=== PATIENT | male | born 1965 | race Caucasian/White ===

== ENCOUNTER → 2024-08-13 | Outpatient (CLI) | payer OTHER, SELFPAY ==
--- NOTE | 2024-08-13 09:39 | STE_ITS ---
Reason For Study Reason For Study: MVP, PALPS Stress Results Protocol: Volodymyr Protocol Maximum Predicted HR: 159 bpm Target HR: 135 bpm % Maximum Predicted HR: 97 % DurationHeart Rate Stage (mm:ss) (bpm) BP Comment BASELINE 82 130/82 STAGE 1 3:00 103 142/82 STAGE 2 3:00 127 142/82 STAGE 3 3:00 148 152/70 STAGE 4 3:00 155 158/76 RECOVERY 118 118/72NO CHEST PAIN DURING TEST Stress Duration: 12:00 mm:ss Maximum Stress HR: 155 bpm Baseline Echocardiogram Findings Stress Echo Wall motion Data Resting WM Intermediate WM Stress WM ECHO/Stress Test Echo w/o Contrast Interpretation Summary Exercise stress echo. 59-year-old man with a history of mitral valve disease. . Resting EKG demonstrates sinus rhythm with a rate of 82 bpm normal intervals are noted. The patient exercised according to the regular Volodymyr protocol for total duration of 12 minutes comple ting stage IV of the Volodymyr protocol. The maximum heart rate attained was 173 bpm which was 108% of max impacted heart ra te the maximum workload was 13.7 metabolic equivalents. The patient maintained sinus rhythm throughout the recor ding. At rest there were no ST or T wave changes noted to suggest ischemia and at peak exercise upsloping ST changes wer e noted we did not meet the criteria for ischemia. No clinical angina was noted the test was terminated due to target he art rate being achieved. The peak blood pressure is 158/76 which was a normal blood pressure response to exercise with a rate-pressure product of 27,300. No clinical angina or arrhythmias were noted. Stress echocardiogram. The resting echocardiogram demonstrated preserved ejection fraction of 60% with no wall motion abnormalities noted. There was mild mitral valve prolapse of the posterior leaflet, mitral calcifica tion was also present. At peak exercise there was thickening of all griffith reduction of low ventricular cavity size and peaking of ejection fraction of 70%. No wall motion abnormalities were present. Conclusion: Exercise stress echocardiogram with no ischemic changes at a high workload. Resting mitral valve prolapse mild. Ordering Physician: Julian Vera Referring Physician: Julian Vera Performed By: Ysabel Vazquez, MOHSEN, RVT
--- OUTSIDE RECORDS SUMMARY | 2024-08-13 15:21 | XMS RPT_ITS | CCD ---
Author Organization [facility] Care Team Providers Care Recruiter Account Manager Name Role Phone Erma Knight Primary Care Provider [phone] Erma Knight MD Primary Care Provider Erma Knight MD Primary Care Provider ERMA KNIGHT Primary Care Unavailable OLIVER WATSON Referring Unavailable OLIVER WATSON Attending Unavailable MARIA D ROME Attending Unavail able MOISÉS, ANINDYA SANCHEZ Primary Care Unavailable MARIA D ROME Attending Unavail able MARIA D ROME Referring Unavail able MOISÉS ANDAGOBERTOYA VENECIA Primary Care Unavailable Erma Knight MD Primary Care Provider GABE HAMILTON Referring Unavailabl e SEN, ANINDYA Primary Care Unavailable WESTERHEIDE, MARTY Admitting Unavailable WESTERGA MARTY Attending Unavailable SEN, ANINDYA Primary Care Unavailable Erma Knight MD Primary Care Provider ERMA KNIGHT Referring Unavailable SEN, ANINDYA SANCHEZ Primary Care Unavailable OLIVER WATSON Attending Unavailable OLIVER WATSON CHERYL Referring Unavailable OLIVER WATSON Attending Unavailable MOISÉS, ANINDYA SANCHEZ Primary Care Unavailable Unavailable Primary Care Provider Unavailabl e SEN, ANINDYA Attending Unavailable SEN, ANINDYA Attending Unavailable SEN, ANINDYA Attending Unavailable SEN, ANINDYA Attending Unavailable SEN, ANINDYA Attending Unavailable SEN, ANINDYA Attending Unavailable SEN, ANINDYA Attending Unavailable SEN, ANINDYA Referring Unavailable SEN, ANINDYA Attending Unavailable SEN, ANINDYA Attending Unavailable Julian Vera Attending Unavailable [facility] Doctor, Out of Primary Care Unavailable [facility] Doctor, Out of Referring Unavailable Julian Vera Referring Unavailable [facility] Doctor, Out of Primary Care Unavailable Julian Vera Attending Unavailable Allergies Allergy Classification Reported Allergen(s) Allergy Type Date of Onset Reaction(s) Facility (1 source) Amitriptyline; Translations: [AMITRIPTYLINE] Drug Allergy 03-16-2023 [facility] Repository (1 source) busPIRone; Translations: [BUSPIRONE] Drug Allergy 03-16-2023 [facility] Repository (1 source) DULoxetine; Translations: [DULOXETINE HCL] Drug Allergy 03-16-2023 [facility] Repository (1 source) Eszopiclone; Translations: [ESZOPICLONE] Drug Allergy 03-16-2023 [facility] Repository (1 source) rOPINIRole; Translations: [ROPINIROLE] Drug Allergy 03-16-2023 [facility] Repository (1 source) Temazepam; Translations: [TEMAZEPAM] Drug Allergy 03-16-2023 [facility] Repository (1 source) traZODone; Translations: [TRAZODONE] Drug Allergy 03-16-2023 [facility] Repository (1 source) zolpidem; Translations: [ZOLPIDEM] Drug Allergy 03-16-2023 [facility] Repository (1 source) cat dander Drug allergy (disorder) 06-18-2024 [facility] Repository Medications Current Medications Medication Drug Class(es) Dates Sig (Normalized) Sig (Original) acetaminophen 325 mg / HYDROcodone bitartrate 5 mg oral tablet (14 sources) Opioid Agonist Start: 10-08-2023 take 1-2 tablets by mouth once daily in the evening HYDROcodone-aceta minophen (NORCO) 5-325 mg per tablet Take 1-2 tablets by mouth every evening 60 tablet 12/08/2023 3:10 PM EDT 11/27/2023 Active Start: 04-24-2020 End: 04-27-2020 take 1 tablet by mouth every six hours as needed for pain HYDROcodone-acetaminophen (NORCO) 5-325 mg per tablet Indications: Acute pain of left shoulder Take 1 (one) tablet by mouth every 6 (six) hours as needed for pain . 10 tablet 0 04/24/2020 04/27/2020 Active acetaminophen 325 mg / oxyCODONE hydrochloride 5 mg oral tablet (1 source) Opioid Agonist Start: 09-03-2019 End: 09-06-2019 take 1 tablet by mouth every six hours as needed for pain, then take 3 tablets by mouth as needed for pain oxyCODONE-acetaminophen (PERCOCET) 5-325 mg per tablet Indications: Acute diverticulitis Take 1 (one) tablet by mouth every 6 (six) hours as needed for pain (Days supply per fill: 3) . 12 tablet 0 09/03/2019 09/06/2019 Active amoxicillin 875 mg / clavulanate 125 mg oral tablet (1 source) Penicillin-class Antibacterial Start: 04-28-2024 End: 05-03-2024 take 1 tablet by mouth twice daily amoxicillin-clavulanate potassium (AUGMENTIN) 875-125 mg per tablet Take 1 tablet by mouth two times a day for 5 days. 10 tablet 04/28/2024 05/03/2024 Active atenolol 25 mg oral tablet (7 sources) beta-Adrenergic Khai Start: 07-12-2021 take 1 tablet by mouth once daily atenolol (TENORMIN) 25 mg tablet Take 1 tablet by mouth once daily 30 tablet 03/02/2024 11:51 AM EST 03/31/2023 Active celecoxib 200 mg oral capsule (11 sources) Nonsteroidal Anti-inflammatory Drug Start: 12-03-2023 take 1 capsule by mouth once daily in the morning celecoxib (CELEBREX) 200 mg capsule Take 1 capsule by mouth 1 time each day. 30 capsule 4 02/28/2024 8:53 AM EST 12/03/2023 Active Start: 11-28-2023 take 1 capsule by mo [facility] once daily celecoxib (CELEBREX) 200 mg capsule Take 1 capsule by mouth 1 time each day. 30 capsule 11/28/2023 Active End: 01-31-2021 take 1 capsule by mouth once daily celecoxib (CeleBREX) 200 MG capsule Take 200 mg by mouth daily . 0 01/31/2021 Discontinued ciprofloxacin 500 mg oral tablet (3 sources) Quinolone Antimicrobial Start: 09-03-2019 End: 09-09-2019 take 1 tablet by mouth twice daily ciprofloxacin HCl (CIPRO) 500 MG tablet Take 1 (one) tablet (500 mg total) by mouth 2 (two) times a day for 6 days . 12 tablet 0 09/03/2019 09/09/2019 Active Start: 08-30-2019 End: 09-03-2019 take 400 mg intravenous route every twelve hours ciprofloxacin (CIPRO) IVPB 400 mg (premix) clonazePAM 1 mg oral tablet (3 sources) Benzodiazepine Start: 11-27-2023 take 0.5-1 tablets by mouth at bedtime clonazePAM (KLONOPIN) 1 mg tablet Take 1/2 to 1 tablet by mouth at bedtime 30 tablet 12/08/2023 3:10 PM EDT 11/27/2023 Active diphenhydrAMINE (1 source) Histamine-1 Receptor Antagonist Start: 08-30-2019 take 25 mg intravenous route every six hours as needed diphenhydrAMINE (BENADRYL) injection 25 mg ipratropium bromide 0.021 mg/actuat metered dose nasal spray (1 source) Anticholinergic Start: 04-28-2024 Ipratropium [place] (ATROVENT) 21 mcg (0.03 %) nasal spray Use 2 Sprays in the nose every 12 hours. 30 mL 04/28/2024 Active metroNIDAZOLE 500 mg oral tablet (3 sources) Nitroimidazole Antimicrobial Start: 09-03-2019 End: 09-09-2019 take 1 tablet by mouth three times daily at mealtime metroNIDAZOLE (FLAGYL) 500 MG tablet Take 1 (one) tablet (500 mg total) by mouth 3 (three) times a day with meals for 6 days . 18 tablet 0 09/03/2019 09/09/2019 Active Start: 08-30-2019 End: 09-03-2019 take 500 mg intravenous route every eight hours metroNIDAZOLE (FLAGYL) IVPB 500 mg multivitamin tablet (2 sources) take 1 tablet by mouth once daily multivitamin tablet Take 1 tablet by mouth 1 (one) time each day. 0 Active ondansetron 4 mg disintegrating oral tablet (3 sources) Serotonin-3 Receptor Antagonist Start: 09-03-19 20 End: 09-10-19 20 take 1 tablet by mouth every eight hours as needed ondansetron (Zofran ODT) 4 MG disintegrating tablet Dissolve 1 (one) tablet (4 mg total) on top of tongue every 8 (eight) hours as needed for nausea . 20 tablet 0 09/03/2019 09/10/2019 Active Start: 08-30-2019 End: 09-03-2019 take 4 mg intravenous route every four hours as needed ondansetron (ZOFRAN) injection 4 mg pramipexole dihydrochloride 0.75 mg oral tablet (20 sources) Nonergot Dopamine Agonist Start: 04-23-2023 take 1 tablet by mouth once daily Pramipexole 0.75 mg tablet Take 1 tablet by mouth once daily. 90 tablet 3 01/19/2024 11:06 AM EST 04/23/2023 Active Start: 08-30-2019 End: 09-03-2019 take 0.75 mg by mouth once daily 0.75 mg, Oral, Nightl y, First dose on 08/30/19 at 2230 tadalafil 20 mg oral tablet (9 sources) Phosphodiesterase 5 Inhibitor Start: 03-31-2023 take 1 tablet by mouth once daily as needed Tadalafil (CIALIS) 20 mg tablet Take 1 tablet by mouth once daily as needed for erectile dysfunction 30 tablet 3 10/02/2023 1:04 PM EDT 03/31/2023 Active Start: 01-05-2021 tadalafiL (JOSEFA LIS) 20 MG tablet TAKE 1 TABLET BY MOUTH 30 MINUTES PRIOR TO INTERCOURSE FOR 30 DAYS 01/05/2021 Active Completed/Discontinued Medications Medication Drug Class(es) Dates Sig (Normalized) Sig (Original) calcium chloride 0.0014 meq/ml / potassium chloride 0.004 meq/ml / sodium chloride 0.103 meq/ml / sodium lactate 0.028 meq/ml injectable solution (1 source) Start: 02-08-2021 End: 02-08-2021 lactated Ringer's infusion 1 ml ketorolac tromethamine 30 mg/ml injection (1 source) Nonsteroidal Anti-inflammatory Drug, Cyclooxygenase Inhibitor Start: 08-31-2019 End: 09-03-2019 take 15 mg intravenous route every six hours as needed ketorolac (TORADOL) injection 15 mg melatonin 3 mg oral tablet (2 sources) Start: 08-30-2019 End: 09-03-2019 melatonin tablet 3 mg naloxone (NARCAN) injection 0.1 mg (2 sources) Start: 08-30-2019 End: 09-03-2019 naloxone (NARCAN) injection 0.1 mg Start: 08-30-2019 naloxone (NARC AN) injection 0.1 mg oxyCODONE hydrochloride 20 mg/ml oral solution (3 sources) Opioid Agonist Start: 08-30-2019 End: 09-03-2019 take 5 mg under the tongue every four hours as needed oxyCODONE (ROXICODONE) 10 mg/0.5 mL concentrated solution 5 mg 1000 ml sodium chloride 9 mg/ml injection (4 sources) Start: 09-01-2019 End: 09-02-2019 sodium chloride 0.9% (NS) bolus 1,000 mL Start: 08-30-2019 End: 09-03-2019 sodium chloride 0.9% (NS) 24 hr venlafaxine 75 mg extended release oral capsule (9 sources) Serotonin and Norepinephrine Reuptake Inhibitor Start: 08-31-2019 End: 01-31-2021 take 75 mg by mouth once daily 75 mg, Oral, Daily, First dose on Fri08/31/19 at 0900 DO NOT CRUSH OR CHEW. Problems Problem Classification Problem Date Documented Da te Episodic/Chronic Abdominal pain (1 source) Left lower quadrant pain; Translations: [Left lower quadrant abdominal pain] Episodic Cardiac dysrhythmias (2 sources) Atrial premature depolarization; Translations: [Atrial premature depolarization] Onset: 03-16-2023 Chronic Cardiac dysrhythmias (10 sources) Palpitations; Translations: [Palpitations] Onset: 03-25-2023 03-25-2023 Episodic Disorders of lipid metabolism (11 sources) Hyperlipidemia; Translations: [Hyperlipidemia, unspecified] Onset: 01-31-2021 Chronic Diverticulosis and diverticulitis (7 sources) Diverticulitis of intestine; Translations: [Diverticulitis of intestine, part unspecified, without perforation or abscess without bleeding] Onset: 08-30-2019 08-31-2019 Chronic Diverticulosis and diverticulitis (8 sources) Diverticulitis of intestine; Translations: [Acute diverticulitis] Onset: 08-30-2019 08-30-2019 External cause codes: Fall (2 sources) Fall; Translations: [Fall, initial encounter] Heart valve disorders (8 sources) Mitral valve regurgitation; Translations: [Nonrheumatic mitral (valve) insufficiency] Onset: 03-25-2023 Chronic Immunizations and screening for infectious disease (2 sources) Encounter for immunization; Translations: [Encounter for immunization] Onset: 04-01-2024 Episodic Nonspecific chest pain (4 sources) Chest discomfort; Translations: [Other chest pain] Onset: 03-25-2023 02-03-2023 Episodic Osteoarthritis (2 sources) Unspecified osteoarthritis, unspecified site; Translations: [Unspecified osteoarthritis, unspecified site] Onset: 03-30-2024 Chronic Other gastrointestinal disorders (1 source) Personal history of other diseases of the digestive system; Translations: [History of diverticulitis] Episodic Other hereditary and degenerative nervous system conditions (2 sources) Restless legs syndrome; Translations: [Restless legs syndrome] Onset: 03-16-2023 Chronic Other male genital disorders (2 sources) Male erectile dysfunction, unspecified; Translations: [Male erectile dysfunction, unspecified] Onset: 03-16-2023 Chronic Other non-traumatic joint disorders (3 sources) Shoulder pain; Translations: [Acute pain of left shoulder] Episodic Other screening for suspected conditions (not mental disorders or infectious disease) (2 sources) Encounter for screening for diabetes mellitus; Translations: [Encounter for screening for diabetes mellitus] Onset: 03-18-2024 Episodic Other upper respiratory infections (1 source) Acute sinusitis; Translations: [Other acute sinusitis] 04-28-2024 Episodic Pulmonary heart disease (1 source) Pulmonary hypertension; Translations: [Pulmonary hypertension, unspecified] Chronic Residual codes; unclassified (9 sources) Sleep apnea; Translations: [Sleep apnea, unspecified] Onset: 01-31-2021 Chronic Residual codes; unclassified (2 sources) Sleep apnea, unspecified; Translations: [Sleep apnea, unspecified] Onset: 01-31-2021 Chronic Residual codes; unclassified (2 sources) Obstructive sleep apnea (adult) (pediatric); Translations: [Obstructive sleep apnea (adult) (pediatric)] Onset: 03-16-2023 Chronic Unclassified (2 sources) Billing Onset: 04-01-2024 Results Test Name Value Interpretation Reference Range Facility 12 Lead EKG performed by [facility] on 06-18-2024 12 Lead EKG performed by [place] [id number] [place] [address] 12 Lead EKG performed by [facility] 06/18/24 0812 MR#: [id number] Acct: [id number] Name: JOS ALEX Rep #: [id number] : 1965 59 From: Julian Vera MD Attending Dr: Dr. Julian Vera MD Status: DE P AMB Ordering Dr: Julian Vera MD Date: 06/18/24 Location: [facility] Sex: M C Admitted: BMS/12 Lead EKG performed by [facility] ECG Report Interpretation --Sinus Rhythm WITHIN NORMAL LIMITSElectronically signed on 06/18/2024 at 14:[address] Julian Vera [employer] Version 8610 06/18/248 Date Julian Vera MD CC: Date Dictated: 06/18/24811 Date Transcribed: 06/18/24811 Structural Iron Erector: Signed Normal [facility] Cardiology Visit Reporton Cardiology Visit Report [facility] [address] [place] [address] OFFICE VISIT Date of Service: 06/18/24 MR#: [id number] Acct: [id number] Name: JOS ALEX Rep #: [id number] : 1965 Provider: Dr. Julian lubin MD Age/Sex: 59/M Location: [facility] Status: Signed with Addenda ADDENDUM by Dr. Julian Vera MD on 06/18/24 at 1401 HPI History of Present Illness Details: ECG in the office was a normal sinus rhythm at 79 bpm and is essentially within normal limits. Assessment and Plan Assessment and Plan (1) Palpitations: Status: Acute (2) SANDRINE on CPAP: Status: Acute (3) Mitral valve disease: Status: Acute Orders: Orders 12 Lead EKG performed by [facility] Today R00.2 - Palpitations Stress Test Echo w/o Contrast Today R00.2 - Palpitations Plan Details Follow Up: 1 Year (With Dr. Vera and as needed) 06/18/24 1401 Date Julian Vera MD cc: * Signed HPI HPI History of Present Illness Details: Patient is a 59-year-old white male of Shaheed and a friend of mine from the [facility]. He comes in with Shaheed today for new patient visit. The patient carries a history of some atypical type chest discomfort hyperlipidemia and palpitations. He also had mitral regurgitation to a mild degree noted on echocardiogram in January 2021 with borderline bileaflet prolapse of the mitral valve. He also had a 7-day event monitor in March 2023 which really did not show any significant ectopy. He had less than 1% PACs and PVCs. The patient's lipids done March 2024 total cholesterol is 185, HDL 40, LDL 114 and triglycerides 155. This is on no statin therapy. The patient primary issue is what sounds to be sleep apnea that he reports he has been diagnosed as both central and obstructive. He has been followed for several years and has significant restless leg syndrome that limits his sleep pattern. He does wear a watch that monitors his sleep and has been noted to have his O2 saturation done in the 70% range even on supplemental oxygen with his CPAP. He is trialing a new mask just recently started. And he is on baclofen, clonazepam, and hydrocodone acetaminophen to try and control the restless leg syndrome. The patient is fairly active especially in the warmer months. He rides a bike and walks in the evening hours. He denies any significant dyspnea on exertion denies any syncope. There is no family history of early coronary disease he is not hypertensive he is not diabetic and he does not smoke. Intake Vital Signs 06/18/24 13:05 Height 6 ft Weight: 217 lb BMI 29.4 BP 124/88 H Blood Pressure Location Rt brachial Position Sitting Respiration 18 Pulse 91 Pulse Source Monitor Pulse Oximetry (%) 92 Oxygen Delivery Method room air Intake Visit Reasons: Sleep Apnea (PER DAO) Research & Analytics Manager Required: No Accompanied by: Is patient in pain?: No Allergies cat dander (cats) Allergy (Verified 06/18/24 13:01) Other Medications ???Medication ???Instructions ???Recorded ???Confirmed ???Type atenolol 25 mg tablet 25 mg PO QDAY 06/03/24 06/18/24 Hi story tadalafil 20 mg tablet (Cialis) 20 mg PO QDAY PRN 06/03/24 5 History baclofen 10 mg tablet 10 mg PO QHS 06/18/24 06/18/24 His tory clonazepam 1 mg tablet 1 mg PO QHS 06/18/24 06/18/24 Hist ory hydrocodone-acetaminophe n 5-325mg 1 tab PO QPM 06/18/24 06/18/24 Hi story 5mg-325mg Have you fallen in the past year?: No PFSH Medical History Diverticulitis Depression Mitral valve disease Hyperlipidemia Erectile dysfunction Palpitations Restless legs syndrome (RLS) SANDRINE on CPAP Surgical History History of foot surgery History of colonoscopy History of appendectomy Family History Mother Hypertension Ulcer Brother COPD (chronic obstructive pulmonary disease) Social History Smoking Status: Never smoker alcohol intake: current substance use type: does not use caffeine: Yes ROS Const Const: Positive for fatigue; Negative for weakness ENT ENT: Negative for dizziness or balance problems Cardio Chest Pain: Yes Palpitations: Yes Edema: Left (due to previous ankle injury) Muscle aches with walking: None Resp Respiratory: Positive for SOB with activity and SOB at rest; Negative for SOB orthopnea SOB lying down GI GI: Positive for heartburn; Negative nausea or vomiting Musc Musc: Negative for muscle weakness or balance problems Neuro Neuro: Negative for dizziness, lightheaded (more content not included)... Normal [facility] CBC WITH AUTO DIFFERENTIALon 03-18-2024 BASO # 0.0 K CUMM Normal 0.0-0.2 [facility] Comment on above: Order Comment: Locat ion: Performed By: #### L [id number] #### DIAZ MCCLAIN ([id number]) [facility] ([facility]) [address], [address] [place] [address] Basophils/100 WBC (Bld) 0.6 % Normal 0.0-3.0 [facility] Comment on above: Order Comment: Locat ion: Performed By: #### L [id number] #### DIAZ MCCLAIN ([id number]) [facility] ([facility]) [address] [place] [address] Eosinophils (Bld) [#/Vol] 0.08 10*3/uL Normal 0.00-0.40 [facility] Comment on above: Order Comment: Locat ion: Performed By: #### L [id number] #### DIAZ MCCLAIN ([id number]) [facility] ([facility]) [address] [place] [address] Eosinophils/100 WBC (Bld) 1.6 % Normal 0.0-7.0 [facility] Comment on above: Order Comment: Locat ion: Performed By: #### L [id number] #### DIAZ MCCLAIN ([id number]) [facility] ([facility]) [address] [place] [address] Erythrocyte distribution width (RBC) [Ratio] 12.2 % Normal 11.5-15.5 [facility] Comment on above: Order Comment: Locat ion: Performed By: #### L [id number] #### DIAZ MCCLAIN ([id number]) [facility] [address] [place] [address] Hematocrit (Bld) [Volume fraction] 44.7 % Normal 42.0-52.0 [facility] Comment on above: Order Comment: Locat ion: Performed By: #### L [id number] #### DIAZ MCCLAIN ([id number]) [facility] [address] [place] [address] Hemoglobin (Bld) [Mass/Vol] 14.7 g/dL Normal 13.5-18.0 [facility] Comment on above: Order Comment: Locat ion: Performed By: #### L [id number] #### DIAZ MCCLAIN ([id number]) [facility] ([facility]) [address] [address] IMMGRN# 0.0 K CUMM Normal 0.0-0.3 [facility] Comment on above: Order Comment: Locat ion: Performed By: #### L [id number] #### DIAZ MCCLAIN ([id number]) [facility] ([facility]) [address] [place] [address] IMMGRN% 0.2 % Normal 0.0-3.0 [facility] Comment on above: Order Comment: Locat ion: Performed By: #### L [id number] #### DIAZ MCCLAIN ([id number]) [facility] ([facility]) [address] [place] [address] LYMPH # 1.4 K CUMM Normal 0.7-4.5 [facility] Comment on above: Order Comment: Locat ion: Performed By: #### L [id number] #### DIAZ MCCLAIN ([id number]) [facility] ([facility]) [address] [place] [address] Lymphocytes/100 WBC (Bld) 27.3 % Normal 14.0-46.0 [facility] Comment on above: Order Comment: Locat ion: Performed By: #### L [id number] #### DIAZ MCCLAIN ([id number]) [facility] ([facility]) [address] [place] [address] MCH (RBC) [Entitic mass] 30.2 pg Normal 27.0-31.0 [facility] Comment on above: Order Comment: Locat ion: Performed By: #### L [id number] #### DIAZ MCCLAIN ([id number]) [facility] ([facility]) [address] [place] [address] MCHC (RBC) [Mass/Vol] 32.9 g/dL Normal 32.0-36.0 [facility] Comment on above: Order Comment: Locat ion: Performed By: #### L [id number] #### DIAZ MCCLAIN ([id number]) [facility] ([facility]) [address] [facility] [address] [place] [address] MCV (RBC) [Entitic vol] 92.0 fL Normal 78.0-100.0 [facility] Comment on above: Order Comment: Locat ion: Performed By: #### L [id number] #### DIAZ MCCLAIN ([id number]) [facility] ([facility]) [address] [facility] [address] [place] [address] MONO # 0.4 K CUMM Normal 0.1-1.0 [facility] Comment on above: Order Comment: Locat ion: Performed By: #### L [id number] #### DIAZ MCCLAIN ([id number]) [facility] ([facility]) [address] [place] [address] Monocytes/100 WBC (Bld) 7.9 % Normal 4.0-13.0 [facility] Comment on above: Order Comment: Locat ion: Performed By: #### L [id number] #### DIAZ MCCLAIN ([id number]) [facility] ([facility]) [address] [place] [address] KHADAR # 3.2 K CUMM Normal 1.8-7.8 [facility] Comment on above: Order Comment: Locat ion: Performed By: #### L [id number] #### DIAZ MCCLAIN ([id number]) [facility] ([facility]) [address] [place] [address] Neutrophils/100 WBC (Bld) 62.4 % Normal 40.0-74.0 [facility] Comment on above: Order Comment: Locat ion: Performed By: #### L [id number] #### DIAZ MCCLAIN ([id number]) [facility] ([facility]) [address] [address] Nucleated RBC/100 WBC (Bld) [Ratio] 0.0 % Normal 0.0-0.9 [facility] Comment on above: Order Comment: Locat ion: Performed By: #### L [id number] #### DIAZ MCCLAIN ([id number]) [facility] ([facility]) [address] [facility], [address] [place] [address] Platelet mean volume (Bld) [Entitic vol] 9.1 fL Normal 8.9-12.6 [facility] Comment on above: Order Comment: Locat ion: Performed By: #### L [id number] #### DIAZ MCCLAIN ([id number]) [facility] ([facility]) [address] [address] PLT 256 K CUMM Normal 130-400 [facility] Comment on above: Order Comment: Locat ion: Performed By: #### L [id number] #### DIAZ MCCLAIN ([id number]) [facility] ([facility]) [address] [address] RBC 4.9 M CUMM Normal 4.2-5.8 [facility] Comment on above: Order Comment: Locat ion: Performed By: #### L [id number] #### DIAZ MCCLAIN ([id number]) [facility] ([facility]) [address] [place] [address] WBC 5.2 K CUMM Normal 3.8-10.6 [facility] Comment on above: Order Comment: Locat ion: Performed By: #### L [id number] #### DIAZ MCCLAIN ([id number]) [facility] [address] [place] [address] COMPREHENSIVE METABOLIC PANE Pito 03-18-2024 A/G RATIO 1.7 Normal [facility] Comment on above: Order Comment: Locat ion: Performed By: #### L AB116, [id number], LAB17, LAB18 ###Nahun MCCLAIN ([id number]) [facility] [address] [address] Albumin [Mass/Vol] 4.5 g/dL Normal 3.2-4.8 [facility] Comment on above: Order Comment: Locat ion: Performed By: #### L AB116, [id number], LAB17, LAB18 #### DIAZ MCCLAIN ([id number]) [facility] [address] [address] ALP [Catalytic activity/Vol] 57 U/L Normal 40-127 [facility] Comment on above: Order Comment: Locat ion: Performed By: #### Jayde LORENZ116, [id number], LAB17, LAB18 #### DIAZ MCCLAIN ([id number]) [facility] [address] [address] ALT [Catalytic activity/Vol] 29 U/L Normal 10-49 [facility] Comment on above: Order Comment: Locat ion: Performed By: #### Jayde ESTEVEZ, [id number], LAB17, LAB18 #### DIAZ MCCLAIN ([id number]) [facility] [address] [place] [address] AST [Catalytic activity/Vol] 16 U/L Normal <=34 [facility] Comment on above: Order Comment: Locat ion: Performed By: #### Jayde LORENZ116, [id number], LAB17, LAB18 #### DIAZ MCCLAIN ([id number]) [facility] [address] [place] [address] B/C RATIO 19.2 Normal 10.0-28.6 [facility] Comment on above: Order Comment: Locat ion: Performed By: #### Jayde AB116, [id number], LAB17, LAB18 #### DIAZ MCCLAIN ([id number]) [facility] [address] [place] [address] Bilirubin [Mass/Vol] 0.4 mg/dL Normal 0.3-1.2 [facility] Comment on above: Order Comment: Locat ion: Performed By: #### L AB116, [id number], LAB17, LAB18 #### DIAZ MCCLAIN ([id number]) [facility] [address] [place] [address] Calcium [Mass/Vol] 9.8 mg/dL Normal 8.7-10.7 [facility] Comment on above: Order Comment: Locat ion: Performed By: #### Jayde AB116, [id number], LAB17, LAB18 #### DIAZ MCCLAIN ([id number]) [facility] ([facility] [address] [facility], [address] [place] [address] Chloride [Moles/Vol] 104 mmol/L Normal 100-110 [facility] Comment on above: Order Comment: Locat ion: Performed By: #### L AB116, [id number], LAB17, LAB18 #### DIAZ MCCLAIN ([id number]) [facility] [address] [address] CO2 [Moles/Vol] 28 mmol/L Normal 20-31 [facility] Comment on above: Order Comment: Locat ion: Performed By: #### Jayde ESTEVEZ, [id number], LAB17, LAB18 #### DIAZ MCCLAIN ([id number]) [facility] [address] [address] Creatinine [Mass/Vol] 1.2 mg/dL Normal 0.7-1.3 [facility] Comment on above: Order Comment: Locat ion: Performed By: #### Jayde LORENZ116, [id number], LAB17, LAB18 #### DIAZ MCCLAIN ([id number]) [facility] [address] [address] GFR 69.2 mL/min/1.73m*2 Normal >=60.0 [facility] Comment on above: Order Comment: Locat ion: Performed By: #### L AB116, [id number], LAB17, LAB18 #### DIAZ MCCLAIN ([id number]) [facility] [address] [facility], [address] [address] Globulin (S) [Mass/Vol] 2.7 g/dL Normal [facility] Comment on above: Order Comment: Locat ion: Performed By: #### L AB116, [id number], LAB17, LAB18 #### DIAZ MCCLAIN ([id number]) [facility] [address] [address] Glucose [Mass/Vol] 96 mg/dL Normal 74-106 [facility] Comment on above: Order Comment: Locat ion: Performed By: #### Jayde AB116, [id number], LAB17, LAB18 #### DIAZ MCCLAIN ([id number]) [facility] [address] [place] [address] Potassium [Moles/Vol] 4.9 mmol/L Normal 3.5-5.1 [facility] Comment on above: Order Comment: Locat ion: Performed By: #### Jayde ESTEVEZ, [id number], LAB17, LAB18 #### DIAZ MCCLAIN ([id number]) [facility] [address] [place] [address] Protein [Mass/Vol] 7.2 g/dL Normal 5.7-8.2 [facility] Comment on above: Order Comment: Locat ion: Performed By: #### Jayde ESTEVEZ, [id number], LAB17, LAB18 #### DIAZ MCCLAIN ([id number]) [facility] [address] [place] [address] Sodium [Moles/Vol] 142 mmol/L Normal 136-145 [facility] Comment on above: Order Comment: Locat ion: Performed By: #### Jayde AB116, [id number], LAB17, LAB18 #### DIAZ MCCLAIN ([id number]) [facility] [address] [place] [address] Urea nitrogen [Mass/Vol] 23 mg/dL Normal 9-23 [facility] Comment on above: Order Comment: Locat ion: Performed By: #### Jayde AB116, [id number], LAB17, LAB18 #### DIAZ MCCLAIN ([id number]) [facility] [address] [place] [address] [id number] 03-18-2024 HbA1c (Bld) [Mass fraction] 5.6 % Normal 0.0-5.6 [facility] Comment on above: Order Comment: Locat ion: Result Comment: Refe magali Interval: Normal: below 5.7% Prediabetes: 5.7% to 6.4% Diabetes: 6.5% or above Performed By: #### L AB90 #### DIAZ MCCLAIN ([id number]) [facility] ([facility]) [address] [place] [address] LIPID PANELon 03-18-2024 CHOL/HDL RATIO 4.6 High <=4.0 [facility] Comment on above: Order Comment: Locat ion: Performed By: #### L AB116, [id number], LAB17, LAB18 #### DIAZ MCCLAIN ([id number]) [facility] [address] [place] [address] Cholesterol [Mass/Vol] 185 mg/dL Normal <=200 [facility] Comment on above: Order Comment: Locat ion: Result Comment: Low- risk levels (desirable) < 200 mg/dL Moderate-risk levels (borderline) 200 to 239 mg/dL High-risk levels > or = 240 mg/dL Performed By: #### L AB116, [id number], LAB17, LAB18 #### DIAZ MCCLAIN ([id number]) [facility] [address] [place] [address] Cholesterol in HDL [Mass/Vol] 40 mg/dL Low >60 [facility] Comment on above: Order Comment: Locat ion: Performed By: #### L AB116, [id number], LAB17, LAB18 #### DIAZ MCCLAIN ([id number]) [facility] [address] [place] [address] Cholesterol in LDL [Mass/Vol] 114 mg/dL Normal <=130 [facility] Comment on above: Order Comment: Locat ion: Performed By: #### L AB116, [id number], LAB17, LAB18 #### DIAZ MCCLAIN ([id number]) [facility] [address] [address] NON-HDL CHOL 145 Normal [facility] Comment on above: Order Comment: Locat ion: Result Comment: LDL and Non-HDL goal dependent upon individual risk Performed By: #### Jayde ESTEVEZ, [id number], LAB17, LAB18 #### DIAZ MCCLAIN ([id number]) [facility] [address] [address] Triglyceride [Mass/Vol] 155 mg/dL High <=150 [facility] Comment on above: Order Comment: Locat ion: Performed By: #### Jayde ESTEVEZ, [id number], LAB17, LAB18 #### DIAZ MCCLAIN ([id number]) [facility] [address] [address] VLDL-CALC 31 mg/dl High 0-30 [facility] Comment on above: Order Comment: Locat ion: Performed By: #### Jayde ESTEVEZ, [id number], LAB17, LAB18 #### DIAZ MCCLAIN ([id number]) [facility] [address] [address] TSH W/ REFLEX TO FT4on 03-18 TSH 1.061 uIU/mL Normal 0.550-4.780 [facility] Comment on above: Order Comment: Locat ion: Performed By: #### Jayde ESTEVEZ, [id number], LAB17, LAB18 #### DIAZ MCCLAIN ([id number]) [facility] [address] [address] Rajat 12-04-2023 MAZINN Telephone ([facility] -------- JOS ALEX ([id number]) 1965 M Date Time Provider Department 12/04/23 ANAID MICHELLE SPCPHARMSVC During your visit today, we recorded the following information about you: Anaid Michelle, formerly [facility] 12/04/2023 10:15 AM Signed [facility] received prescription(s) for Celebrex from Rod's office. Unfortunately, we do not carry or service non-specialty medications. If you would like the medication to be mailed to the patient by a [facility], please consider sending the Rx to [facility] (phone [phone]). Otherwise, please send the Rx to a [facility] outpatient pharmacy or patient's preferred pharmacy. Thanks, Anaid Michelle, PharmD Clinical Pharmacist, Oncology [facility] P: ; F: Pool: P [facility] Pool #: [id number] Allergies As of Date: 12/04/2023 (Not on File) Date Reviewed: Never Reviewed Prescriptions as of 12/04/2023 - celecoxib (CELEBREX) 200 mg capsule Take 1 capsule by mouth 1 time each day. - HYDROcodone-acetaminophe n (NORCO) 5-325 mg per tablet Take 1-2 tablets by mouth every evening - clonazePAM (KLONOPIN) 1 mg tablet Take 1/2 to 1 tablet by mouth at bedtime - HYDROcodone-acetaminophe n (NORCO) 5-325 mg per tablet Take 1 to 2 tablets by mouth every evening. - HYDROcodone-acetaminophe n (NORCO) 5-325 mg per tablet Take 1 to 2 tablets by mouth every evening. - Tadalafil (CIALIS) 20 mg tablet Take 1 tablet by mouth once daily as needed for erectile dysfunction - atenolol (TENORMIN) 25 mg tablet Take 1 tablet by mouth once daily. - Pramipexole 0.75 mg tablet Take 1 tablet by mouth once daily. Problem List As Of Date: 12/04/2023 (None) Encounter Status:Closed by ANAID MICHELLE on 12/04/23 Normal [facility] 11-29-2023 [facility] Telephone (SPECCL) -------- JSO ALEX ([id number]) 1965 M Date Time Provider Department 11/29/23 ERMA KNIGHT SPEC During your visit today, we recorded the following information about you: Lorri Bean formerly [facility] 11/29/2023 10:48 AM Signed Outside provider: sent via [employer] outside message For patient Jos Alex 1965 [facility] received prescription(s) for celecoxib from Moisés's office. Unfortunately, we do not carry or service non-specialty medications. If you would like the medication to be mailed to the patient by a [facility], please consider sending the Rx to [facility] (phone [phone]). Otherwise, please send the Rx to a [facility] outpatient pharmacy or patient's preferred pharmacy. Thanks, Lorri Bean, PharmD, BCPS, CSP, MSCS Clinical Pharmacist [facility] P: ; F: Pool: P [facility] Allergies As of Date: 11/29/2023 (Not on File) Date Reviewed: Never Reviewed Prescriptions as of 11/29/2023 - celecoxib (CELEBREX) 200 mg capsule Take 1 capsule by mouth 1 time each day. - HYDROcodone-acetaminophe n (NORCO) 5-325 mg per tablet Take 1-2 tablets by mouth every evening - clonazePAM (KLONOPIN) 1 mg tablet Take 1/2 to 1 tablet by mouth at bedtime - HYDROcodone-acetaminophe n (NORCO) 5-325 mg per tablet Take 1 to 2 tablets by mouth every evening. - HYDROcodone-acetaminophe n (NORCO) 5-325 mg per tablet Take 1 to 2 tablets by mouth every evening. - Tadalafil (CIALIS) 20 mg tablet Take 1 tablet by mouth once daily as needed for erectile dysfunction - atenolol (TENORMIN) 25 mg tablet Take 1 tablet by mouth once daily. - Pramipexole 0.75 mg tablet Take 1 tablet by mouth once daily. Problem List As Of Date: 11/29/2023 (None) Encounter Status:Closed by LORRI BEAN on 11/29/23 Normal [facility] MCT-CARDIAC EVENT MONITORon 05-16-2023 MCT-CARDIAC EVENT MONITOR ?? Mobile cardiac agribusiness professor demonstrates sinus rhythm without significant arrhythmias recorded or symptoms reported EVENT MONITOR: 7 day, mobile cardiac agribusiness professor (the patient was monitored for 97% of the prescribed time, commencing on April 03, 2023) INDICATION: Palpitations FINDINGS: Sinus rhythm is demonstrated with an average heart rate of 68 bpm (46-121 bpm) There was a less than 1% burden of PACs and PVCs observed There was 1 manual rhythm strip recorded without mention of symptoms corresponding to sinus rhythm There was 1 auto detected rhythm strip recorded corresponding to sinus rhythm Normal [facility] CBC with differential ([facility]) on 03-12-2022 BASO # 0.0 K CUMM Normal 0.0-0.2 [facility] Comment on above: Order Comment: Items in this order include: Comprehensive Metabolic Panel, Lipid Panel, PSA, TSH w/ reflex to FT4, CBC with differential, HgbA1C, Testing Performed By: [facility] [address] [place] [address] CLIA#:[id number] Dr[address] Diaz Mcclain, Sheather Performed By: #### C 4124, C8, C47, C404, C406, C215 #### [facility] [address] [facility] [address] [place] [address] Basophils/100 WBC (Bld) 0.2 % Normal 0.0-3.0 [facility] Comment on above: Order Comment: Items in this order include: Comprehensive Metabolic Panel, Lipid Panel, PSA, TSH w/ reflex to FT4, CBC with differential, HgbA1C, Testing Performed By: [facility] [address] [place] [address] CLIA#:[id number] Dr[address] Diaz Mcclain, Sheather Performed By: #### C 4124, C8, C47, C404, C406, C215 #### [facility] [address] [facility] [address] [place] [address] EOS # 0.0 K CUMM Normal 0.0-0.4 [facility] Comment on above: Order Comment: Items in this order include: Comprehensive Metabolic Panel, Lipid Panel, PSA, TSH w/ reflex to FT4, CBC with differential, HgbA1C, Testing Performed By: [facility] [address] [place] [address] CLIA#:[id number] [address] Diaz Mcclain, Sheather Performed By: #### C 4124, C8, C47, C404, C406, C215 #### [facility] [address] [facility] [address] [place] [address] Eosinophils/100 WBC (Bld) 0.8 % Normal 0.0-7.0 [facility] Comment on above: Order Comment: Items in this order include: Comprehensive Metabolic Panel, Lipid Panel, PSA, TSH w/ reflex to FT4, CBC with differential, HgbA1C, Testing Performed By: [facility] [address] [place] [address] CLIA#:[id number] [address] Diaz Mcclain, Sheather Performed By: #### C 4124, C8, C47, C404, C406, C215 #### [facility] [address] [facility] [address] [place] [address] Erythrocyte distribution width (RBC) [Ratio] 12.2 % Normal 11.5-15.5 [facility] Comment on above: Order Comment: Items in this order include: Comprehensive Metabolic Panel, Lipid Panel, PSA, TSH w/ reflex to FT4, CBC with differential, HgbA1C, Testing Performed By: [facility] [address] [place] [address] CLIA#:[id number] Dr. Diaz Mcclain, Sheather Performed By: #### C 4124, C8, C47, C404, C406, C215 #### [facility] [address] [facility] [address] [place] [address] Hematocrit (Bld) [Volume fraction] 44.7 % Normal 42.0-52.0 [facility] Comment on above: Order Comment: Items in this order include: Comprehensive Metabolic Panel, Lipid Panel, PSA, TSH w/ reflex to FT4, CBC with differential, HgbA1C, Testing Performed By: [facility] [address] [place] [address] CLIA#:[id number] Dr. Diaz Mcclain, Sheather Performed By: #### C 4124, C8, C47, C404, C406, C215 #### [facility] [address] [place] [address] [place] [address] Hemoglobin (Bld) [Mass/Vol] 14.5 g/dL Normal 13.5-18.0 [facility] Comment on above: Order Comment: Items in this order include: Comprehensive Metabolic Panel, Lipid Panel, PSA, TSH w/ reflex to FT4, CBC with differential, HgbA1C, Testing Performed By: [facility] [address] [place] [address] CLIA#:[id number] [address] Diaz Mcclain, Sheather Performed By: #### C 4124, C8, C47, C404, C406, C215 #### [facility] [address] [place] [address] [place] [address] ImmGrn # 0.0 K CUMM Normal 0.0-0.3 [facility] Comment on above: Order Comment: Items in this order include: Comprehensive Metabolic Panel, Lipid Panel, PSA, TSH w/ reflex to FT4, CBC with differential, HgbA1C, Testing Performed By: [facility] [address] [place] [address] CLIA#:[id number] Dr. Diaz Mcclain, Sheather Performed By: #### C 4124, C8, C47, C404, C406, C215 #### [facility] [address] [facility] [address] [place] [address] ImmGrn % 0.2 % Normal 0.0-3.0 [facility] Comment on above: Order Comment: Items in this order include: Comprehensive Metabolic Panel, Lipid Panel, PSA, TSH w/ reflex to FT4, CBC with differential, HgbA1C, Testing Performed By: [facility] [address] [place] [address] CLIA#:[id number] Dr. Diaz Mcclain, Sheather Performed By: #### C 4124, C8, C47, C404, C406, C215 #### [facility] [address] [facility] [place] [address] LYMPH # 1.6 K CUMM Normal 0.7-4.5 [facility] Comment on above: Order Comment: Items in this order include: Comprehensive Metabolic Panel, Lipid Panel, PSA, TSH w/ reflex to FT4, CBC with differential, HgbA1C, Testing Performed By: [facility] [address] [place] [address] CLIA#:[id number] [address] Diaz Mcclain, Sheather Performed By: #### C 4124, C8, C47, C404, C406, C215 #### [facility] [facility] [place] [address] Lymphocytes/100 WBC (Bld) 31.1 % Normal 14.0-46.0 [facility] Comment on above: Order Comment: Items in this order include: Comprehensive Metabolic Panel, Lipid Panel, PSA, TSH w/ reflex to FT4, CBC with differential, HgbA1C, Testing Performed By: [facility] [address] [place] [address] CLIA#:[id number] Dr. Diaz Mcclain, Sheather Performed By: #### C 4124, C8, C47, C404, C406, C215 #### [facility] [facility] [place] [address] MCH (RBC) [Entitic mass] 29.3 pg Normal 27.0-31.0 [facility] Comment on above: Order Comment: Items in this order include: Comprehensive Metabolic Panel, Lipid Panel, PSA, TSH w/ reflex to FT4, CBC with differential, HgbA1C, Testing Performed By: [facility] [address] [place] [address] CLIA#:[id number] [address] Diaz Mcclain, Sheather Performed By: #### C 4124, C8, C47, C404, C406, C215 #### [facility] [address] [facility] [address] [place] [address] MCHC (RBC) [Mass/Vol] 32.4 g/dL Normal 32.0-36.0 [facility] Comment on above: Order Comment: Items in this order include: Comprehensive Metabolic Panel, Lipid Panel, PSA, TSH w/ reflex to FT4, CBC with differential, HgbA1C, Testing Performed By: [facility] [address] [place] [address] CLIA#:[id number] [address] Diaz Mcclain, Sheather Performed By: #### C 4124, C8, C47, C404, C406, C215 #### [facility] [address] [facility] [place] [address] MCV (RBC) [Entitic vol] 90.3 fL Normal 78.0-100.0 [facility] Comment on above: Order Comment: Items in this order include: Comprehensive Metabolic Panel, Lipid Panel, PSA, TSH w/ reflex to FT4, CBC with differential, HgbA1C, Testing Performed By: [facility] [address] [place] [address] CLIA#:[id number] [address] Diaz Mcclain, Sheather Performed By: #### C 4124, C8, C47, C404, C406, C215 #### [facility] [facility] [address] [place] [address] MONO # 0.4 K CUMM Normal 0.1-1.0 [facility] Comment on above: Order Comment: Items in this order include: Comprehensive Metabolic Panel, Lipid Panel, PSA, TSH w/ reflex to FT4, CBC with differential, HgbA1C, Testing Performed By: [facility] [address] [place] [address] CLIA#:[id number] Dr. Diaz Mcclain, Sheather Performed By: #### C 4124, C8, C47, C404, C406, C215 #### [facility] [address] [place] [address] Monocytes/100 WBC (Bld) 8.7 % Normal 4.0-13.0 [facility] Comment on above: Order Comment: Items in this order include: Comprehensive Metabolic Panel, Lipid Panel, PSA, TSH w/ reflex to FT4, CBC with differential, HgbA1C, Testing Performed By: [facility] [address] [place] [address] CLIA#:[id number] [address] Diaz Mcclain, Sheather Performed By: #### C 4124, C8, C47, C404, C406, C215 #### [facility] [address] [facility] [address] [place] [address] KHADAR # 3.0 K CUMM Normal 1.8-7.8 [facility] Comment on above: Order Comment: Items in this order include: Comprehensive Metabolic Panel, Lipid Panel, PSA, TSH w/ reflex to FT4, CBC with differential, HgbA1C, Testing Performed By: [facility] [address] [place] [address] CLIA#:[id number] [address] Diaz Mcclain, Sheather Performed By: #### C 4124, C8, C47, C404, C406, C215 #### [facility] [address] [place] [address] Neutrophils/100 WBC (Bld) 59.0 % Normal 40.0-74.0 [facility] Comment on above: Order Comment: Items in this order include: Comprehensive Metabolic Panel, Lipid Panel, PSA, TSH w/ reflex to FT4, CBC with differential, HgbA1C, Testing Performed By: [facility] [address] [place] [address] CLIA#:[id number] [address] Diaz Mcclain, Sheather Performed By: #### C 4124, C8, C47, C404, C406, C215 #### [facility] [address] [facility] [place] [address] Platelet mean volume (Bld) [Entitic vol] 9.3 fL Normal 8.9-12.6 [facility] Comment on above: Order Comment: Items in this order include: Comprehensive Metabolic Panel, Lipid Panel, PSA, TSH w/ reflex to FT4, CBC with differential, HgbA1C, Testing Performed By: [facility] [address] [place] [address] CLIA#:[id number] Dr. Diaz Mcclain, Sheather Performed By: #### C 4124, C8, C47, C404, C406, C215 #### [facility] [address] [facility] [place] [address] PLT 264 K CUMM Normal 130-400 [facility] Comment on above: Order Comment: Items in this order include: Comprehensive Metabolic Panel, Lipid Panel, PSA, TSH w/ reflex to FT4, CBC with differential, HgbA1C, Testing Performed By: [facility] [address] [place] [address] CLIA#:[id number] [address] Diaz Mcclain, Sheather Performed By: #### C 4124, C8, C47, C404, C406, C215 #### [facility] [address] [facility] [place] [address] RBC 4.95 M CUMM Normal 4.20-5.80 [facility] Comment on above: Order Comment: Items in this order include: Comprehensive Metabolic Panel, Lipid Panel, PSA, TSH w/ reflex to FT4, CBC with differential, HgbA1C, Testing Performed By: [facility] [address] [place] [address] CLIA#:[id number] Dr. Diaz Mcclain, Sheather Performed By: #### C 4124, C8, C47, C404, C406, C215 #### [facility] [address] [facility] [place] [address] WBC 5.1 K CUMM Normal 3.8-10.6 [facility] Comment on above: Order Comment: Items in this order include: Comprehensive Metabolic Panel, Lipid Panel, PSA, TSH w/ reflex to FT4, CBC with differential, HgbA1C, Testing Performed By: [facility] [address] [place] [address] CLIA#:[id number] Dr. Diaz Mcclain, Sheather Performed By: #### C 4124, C8, C47, C404, C406, C215 #### [facility] [address] [place] [address] Comprehensive Metabolic Pane l ([facility])on 03-12-2022 Albumin [Mass/Vol] 4.6 g/dL Normal 3.2-4.8 [facility] Comment on above: Order Comment: Items in this order include: Comprehensive Metabolic Panel, Lipid Panel, PSA, TSH w/ reflex to FT4, CBC with differential, HgbA1C, Testing Performed By: [facility] [address] [place] [address] CLIA#:[id number] Dr. Diaz Mcclain, Sheather Performed By: #### C 4124, C8, C47, C404, C406, C215 #### [facility] [address] [place] [address] Albumin/Globulin [Mass ratio] 1.5 {ratio} Normal 1.3-2.1 [facility] Comment on above: Order Comment: Items in this order include: Comprehensive Metabolic Panel, Lipid Panel, PSA, TSH w/ reflex to FT4, CBC with differential, HgbA1C, Testing Performed By: [facility] [address] [place] [address] CLIA#:[id number] Dr. Diaz Mcclain, Sheather Performed By: #### C 4124, C8, C47, C404, C406, C215 #### [facility] [address] [place] [address] Alk Phos 59 U/L Normal 40-127 [facility] Comment on above: Order Comment: Items in this order include: Comprehensive Metabolic Panel, Lipid Panel, PSA, TSH w/ reflex to FT4, CBC with differential, HgbA1C, Testing Performed By: [facility] [address] [place] [address] CLIA#:[id number] [address]. Diaz Mcclain, Sheather Performed By: #### C 4124, C8, C47, C404, C406, C215 #### [facility] [address] [place] [address] ALT [Catalytic activity/Vol] 30 U/L Normal 10-49 [facility] Comment on above: Order Comment: Items in this order include: Comprehensive Metabolic Panel, Lipid Panel, PSA, TSH w/ reflex to FT4, CBC with differential, HgbA1C, Testing Performed By: [facility] [address] [place] [address] CLIA#:[id number] [address] Diaz Mcclain, Sheather Performed By: #### C 4124, C8, C47, C404, C406, C215 #### [facility] [facility] [place] [address] AST [Catalytic activity/Vol] 27 U/L Normal <34 [facility] Comment on above: Order Comment: Items in this order include: Comprehensive Metabolic Panel, Lipid Panel, PSA, TSH w/ reflex to FT4, CBC with differential, HgbA1C, Testing Performed By: [facility] [address] [place] [address] CLIA#:[id number] [address] iDaz Mcclain, Sheather Performed By: #### C 4124, C8, C47, C404, C406, C215 #### [facility] [address] [place] [address] B/C Ratio 20.0 Ratio Normal 10.0-28.6 [facility] Comment on above: Order Comment: Items in this order include: Comprehensive Metabolic Panel, Lipid Panel, PSA, TSH w/ reflex to FT4, CBC with differential, HgbA1C, Testing Performed By: [facility] [address] [place] [address] CLIA#:[id number] Dr. Diaz Mcclain, Sheather Performed By: #### C 4124, C8, C47, C404, C406, C215 #### [facility] [address] [place] [address] Bilirubin [Mass/Vol] 0.6 mg/dL Normal 0.3-1.2 [facility] Comment on above: Order Comment: Items in this order include: Comprehensive Metabolic Panel, Lipid Panel, PSA, TSH w/ reflex to FT4, CBC with differential, HgbA1C, Testing Performed By: [facility] [address] [place] [address] CLIA#:[id number] [address] Diaz Mcclain, Sheather Performed By: #### C 4124, C8, C47, C404, C406, C215 #### [facility] [address] [place] [address] Calcium [Mass/Vol] 9.7 mg/dL Normal 8.3-10.6 [facility] Comment on above: Order Comment: Items in this order include: Comprehensive Metabolic Panel, Lipid Panel, PSA, TSH w/ reflex to FT4, CBC with differential, HgbA1C, Testing Performed By: [facility] [address] [place] [address] CLIA#:[id number] [address]. Diaz Mcclain, Sheather Performed By: #### C 4124, C8, C47, C404, C406, C215 #### [facility] [address] [place] [address] Chloride [Moles/Vol] 104 mmol/L Normal 98-107 [facility] Comment on above: Order Comment: Items in this order include: Comprehensive Metabolic Panel, Lipid Panel, PSA, TSH w/ reflex to FT4, CBC with differential, HgbA1C, Testing Performed By: [facility] [address] [place] [address] CLIA#:[id number] [address]. Diaz Mcclain, Sheather Performed By: #### C 4124, C8, C47, C404, C406, C215 #### [facility] [address] [place] [address] CO2 [Moles/Vol] 27 mmol/L Normal 20-31 [facility] Comment on above: Order Comment: Items in this order include: Comprehensive Metabolic Panel, Lipid Panel, PSA, TSH w/ reflex to FT4, CBC with differential, HgbA1C, Testing Performed By: [facility] [address] [place] [address] CLIA#:[id number] Dr. Diaz Mcclain, Sheather Performed By: #### C 4124, C8, C47, C404, C406, C215 #### [facility] [address] [place] [address] Creatinine [Mass/Vol] 1.0 mg/dL Normal 0.7-1.3 [facility] Comment on above: Order Comment: Items in this order include: Comprehensive Metabolic Panel, Lipid Panel, PSA, TSH w/ reflex to FT4, CBC with differential, HgbA1C, Testing Performed By: [facility] [address] [place] [address] CLIA#:[id number] [address] Diaz Mcclain, Sheather Performed By: #### C 4124, C8, C47, C404, C406, C215 #### [facility] [place] [address] GFR 77 mL/min per 1.73 Normal >60 [facility] Comment on above: Order Comment: Items in this order include: Comprehensive Metabolic Panel, Lipid Panel, PSA, TSH w/ reflex to FT4, CBC with differential, HgbA1C, Testing Performed By: [facility] [address] [place] [address] CLIA#:[id number] Dr. Diaz Mcclain, Sheather Result Comment: The GFR estimate is not adjusted for race. Performed By: #### C 4124, C8, C47, C404, C406, C215 #### [facility] [address] [place] [address] Globulin (S) [Mass/Vol] 3.0 g/dL Normal [facility] Comment on above: Order Comment: Items in this order include: Comprehensive Metabolic Panel, Lipid Panel, PSA, TSH w/ reflex to FT4, CBC with differential, HgbA1C, Testing Performed By: [facility] [address] [place] [address] CLIA#:[id number] Dr. Diaz Mcclain, Sheather Performed By: #### C 4124, C8, C47, C404, C406, C215 #### [facility] [place] [address] Glucose [Mass/Vol] 88 mg/dL Normal 74-106 [facility] Comment on above: Order Comment: Items in this order include: Comprehensive Metabolic Panel, Lipid Panel, PSA, TSH w/ reflex to FT4, CBC with differential, HgbA1C, Testing Performed By: [facility] [address] [place] [address] CLIA#:[id number] Dr. Diaz Mcclain, Sheather Performed By: #### C 4124, C8, C47, C404, C406, C215 #### [facility] [address] [place] [address] [place] [address] Potassium [Moles/Vol] 4.3 mmol/L Normal 3.5-5.1 [facility] Comment on above: Order Comment: Items in this order include: Comprehensive Metabolic Panel, Lipid Panel, PSA, TSH w/ reflex to FT4, CBC with differential, HgbA1C, Testing Performed By: [facility] [address] [place] [address] CLIA#:[id number] Dr. Diaz Mcclain, Sheather Performed By: #### C 4124, C8, C47, C404, C406, C215 #### [facility] [address] [place] [address] Protein [Mass/Vol] 7.6 g/dL Normal 5.7-8.2 [facility] Comment on above: Order Comment: Items in this order include: Comprehensive Metabolic Panel, Lipid Panel, PSA, TSH w/ reflex to FT4, CBC with differential, HgbA1C, Testing Performed By: [facility] [address] [place] [address] CLIA#:[id number] Dr. Diaz Mcclain, Sheather Performed By: #### C 4124, C8, C47, C404, C406, C215 #### [facility] [address] [place] [address] Sodium [Moles/Vol] 143 mmol/L Normal 136-145 [facility] Comment on above: Order Comment: Items in this order include: Comprehensive Metabolic Panel, Lipid Panel, PSA, TSH w/ reflex to FT4, CBC with differential, HgbA1C, Testing Performed By: [facility] [address] [place] [address] CLIA#:[id number] Dr. Diaz Mcclain, Sheather Performed By: #### C 4124, C8, C47, C404, C406, C215 #### [facility] [address] [place] [address] Urea nitrogen [Mass/Vol] 20 mg/dL Normal 9-23 [facility] Comment on above: Order Comment: Items in this order include: Comprehensive Metabolic Panel, Lipid Panel, PSA, TSH w/ reflex to FT4, CBC with differential, HgbA1C, Testing Performed By: [facility] [address] [place] [address] CLIA#:[id number] Dr. Diaz Mcclain, Sheather Performed By: #### C 4124, C8, C47, C404, C406, C215 #### [facility] [address] [place] [address] [facility]-12-2022 HbA1c (Bld) [Mass fraction] 5.4 % Normal <5.7 [facility] Comment on above: Order Comment: Items in this order include: Comprehensive Metabolic Panel, Lipid Panel, PSA, TSH w/ reflex to FT4, CBC with differential, HgbA1C, Testing Performed By: [facility] [address] [place] [address] CLIA#:[id number] Dr. Diaz Mcclain, Sheather Result Comment: Refe rence Interval: Normal: below 5.7%. Prediabetes: 5.7% to 6.4%. Diabetes: 6.5% or above. Performed By: #### C 4124, C8, C47, C404, C406, C215 #### [facility] [address] [place] [address] Lipid Panel (COP[facility])on 023 Cholesterol [Mass/Vol] 181 mg/dL Normal <200 [facility] Comment on above: Result Comment: Low- risk levels (desirable) < 200 mg/dL Moderate-risk levels (borderline) 200 to 239 mg/dL High-risk levels > or = 240 mg/dL Performed By: #### C 4124, C8, C47, C404, C406, C215 #### [facility] [place] [address] Cholesterol in HDL [Mass/Vol] 41 mg/dL Low >60 [facility] Comment on above: Performed By: #### C 4124, C8, C47, C404, C406, C215 #### [facility] [address] [place] [address] Cholesterol in LDL [Mass/Vol] 114 mg/dL Normal <130 [facility] Comment on above: Performed By: #### C 4124, C8, C47, C404, C406, C215 #### [facility] [address] [place] [address] Cholesterol.total/ Cholesterol in HDL [Mass ratio] 4.4 {ratio} High <4.0 [facility] Comment on above: Performed By: #### C 4124, C8, C47, C404, C406, C215 #### [facility] [address] [place] [address] Non-HDL Chol 140 Normal LDL Goal + 30 [facility] Comment on above: Result Comment: LDL and Non-HDL goal dependent upon individual risk Performed By: #### C 4124, C8, C47, C404, C406, C215 #### [facility] [address] [place] [address] Triglyceride [Mass/Vol] 128 mg/dL Normal <150 [facility] Comment on above: Performed By: #### C 4124, C8, C47, C404, C406, C215 #### [facility] [address] [place] [address] VLDL-Calc 26 mg/dl Normal <30 [facility] Comment on above: Performed By: #### C 4124, C8, C47, C404, C406, C215 #### [facility] [address] [place] [address] TSH w/ reflex to FT4 ([facility])o n 03-12-2022 TSH 1.436 MIU/mL Normal 0.550-4.780 [facility] Comment on above: Performed By: #### C 4124, C8, C47, C404, C406, C215 #### [facility] [address] [place] [address] Amylaseon 06-15-2021 Amylase [Catalytic activity/Vol] 65 U/L Normal 30-118 [facility] Comment on above: Order Comment: Items in this order include: Amylase , Comprehensive Metabolic Panel, Lipase, CBC with differential, Testing Performed By: [facility] [address] [place] [address] CLIA#:[id number] Dr. Diaz Mcclain, Sheather Lab result has been read by JADE Gomez at 06/15/2021 2:29:27 PM. Performed By: #### C 215, C123, C122, C47 #### [facility] [address] [place] [address] CBC with differentialon 06-01 BASO # 0.0 K CUMM Normal 0.0-0.2 [facility] Comment on above: Order Comment: Items in this order include: Amylase , Comprehensive Metabolic Panel, Lipase, CBC with differential, Testing Performed By: [facility] [address] [place] [address] CLIA#:[id number] Dr. Diaz Mcclain, Sheather Performed By: #### C 215, C123, C122, C47 #### [facility] [address] [place] [address] [address] [place] [address] Basophils/100 WBC (Bld) 0.2 % Normal 0.0-3.0 [facility] Comment on above: Order Comment: Items in this order include: Amylase , Comprehensive Metabolic Panel, Lipase, CBC with differential, Testing Performed By: [facility] [address] [place] [address] CLIA#:[id number] Dr. Diaz Mcclain, Sheather Performed By: #### C 215, C123, C122, C47 #### [facility] [address] [place] [address] [place] [address] EOS # 0.1 K CUMM Normal 0.0-0.4 [facility] Comment on above: Order Comment: Items in this order include: Amylase , Comprehensive Metabolic Panel, Lipase, CBC with differential, Testing Performed By: [facility] [address] [place] [address] CLIA#:[id number] [address] Diaz Mcclain, Sheather Performed By: #### C 215, C123, C122, C47 #### [facility] [address] [place] [address] Eosinophils/100 WBC (Bld) 1.9 % Normal 0.0-7.0 [facility] Comment on above: Order Comment: Items in this order include: Amylase , Comprehensive Metabolic Panel, Lipase, CBC with differential, Testing Performed By: [facility] [address] [place] [address] CLIA#:[id number] Dr. Diaz Mcclain, Sheather Performed By: #### C 215, C123, C122, C47 #### [facility] [address] [place] [address] Erythrocyte distribution width (RBC) [Ratio] 12.5 % Normal 11.5-15.5 [facility] Comment on above: Order Comment: Items in this order include: Amylase , Comprehensive Metabolic Panel, Lipase, CBC with differential, Testing Performed By: [facility] [address] [place] [address] CLIA#:[id number] Dr. Diaz Mcclain, Sheather Performed By: #### C 215, C123, C122, C47 #### [facility]. [address] [place] [address] Hematocrit (Bld) [Volume fraction] 46.7 % Normal 42.0-52.0 [facility] Comment on above: Order Comment: Items in this order include: Amylase , Comprehensive Metabolic Panel, Lipase, CBC with differential, Testing Performed By: [facility] [address] [place] [address] CLIA#:[id number] [address] Diaz Mcclain, Sheather Performed By: #### C 215, C123, C122, C47 #### [facility] [address] [place] [address] Hemoglobin (Bld) [Mass/Vol] 15.1 g/dL Normal 13.5-18.0 [facility] Comment on above: Order Comment: Items in this order include: Amylase , Comprehensive Metabolic Panel, Lipase, CBC with differential, Testing Performed By: [facility] [address] [place] [address] CLIA#:[id number] [address] Diaz Mcclain, Sheather Performed By: #### C 215, C123, C122, C47 #### [facility] [address] [place] [address] ImmGrn # 0.0 K CUMM Normal 0.0-0.3 [facility] Comment on above: Order Comment: Items in this order include: Amylase , Comprehensive Metabolic Panel, Lipase, CBC with differential, Testing Performed By: [facility] [address] [place] [address] CLIA#:[id number] Dr. Diaz Mcclain, Sheather Performed By: #### C 215, C123, C122, C47 #### [facility] [address] [place] [address] ImmGrn % 0.3 % Normal 0.0-3.0 [facility] Comment on above: Order Comment: Items in this order include: Amylase , Comprehensive Metabolic Panel, Lipase, CBC with differential, Testing Performed By: [facility] [address] [place] [address] CLIA#:[id number] [address] Diaz Mcclain, Sheather Performed By: #### C 215, C123, C122, C47 #### [facility] [address] [place] [address] LYMPH # 1.4 K CUMM Normal 0.7-4.5 [facility] Comment on above: Order Comment: Items in this order include: Amylase , Comprehensive Metabolic Panel, Lipase, CBC with differential, Testing Performed By: [facility] [address] [place] [address] CLIA#:[id number] [address] Diaz Mcclain, Sheather Performed By: #### C 215, C123, C122, C47 #### [facility] [address] [place] [address] Lymphocytes/100 WBC (Bld) 23.8 % Normal 14.0-46.0 [facility] Comment on above: Order Comment: Items in this order include: Amylase , Comprehensive Metabolic Panel, Lipase, CBC with differential, Testing Performed By: [facility] [address] [place] [address] CLIA#:[id number] Dr. Diaz Mcclain, Sheather Performed By: #### C 215, C123, C122, C47 #### [facility] [address] [place] [address] MCH (RBC) [Entitic mass] 29.8 pg Normal 27.0-31.0 [facility] Comment on above: Order Comment: Items in this order include: Amylase , Comprehensive Metabolic Panel, Lipase, CBC with differential, Testing Performed By: [facility] [address] [place] [address] CLIA#:[id number] Dr. Diaz Mcclain, Sheather Performed By: #### C 215, C123, C122, C47 #### [facility] [address] [place] [address] MCHC (RBC) [Mass/Vol] 32.3 g/dL Normal 32.0-36.0 [facility] Comment on above: Order Comment: Items in this order include: Amylase , Comprehensive Metabolic Panel, Lipase, CBC with differential, Testing Performed By: [facility] [address] [place] [address] CLIA#:[id number] Dr. Diaz Mcclain, Sheather Performed By: #### C 215, C123, C122, C47 #### [facility] [address] [place] [address] [address] [place] [address] MCV (RBC) [Entitic vol] 92.3 fL Normal 78.0-100.0 [facility] Comment on above: Order Comment: Items in this order include: Amylase , Comprehensive Metabolic Panel, Lipase, CBC with differential, Testing Performed By: [facility] [address] [place] [address] CLIA#:[id number] Dr. Diaz Mcclain, Sheather Performed By: #### C 215, C123, C122, C47 #### [facility] [address] [place] [address] MONO # 0.5 K CUMM Normal 0.1-1.0 [facility] Comment on above: Order Comment: Items in this order include: Amylase , Comprehensive Metabolic Panel, Lipase, CBC with differential, Testing Performed By: [facility] [address] [place] [address] CLIA#:[id number] Dr. Diaz Mcclain, Sheather Performed By: #### C 215, C123, C122, C47 #### [facility] [address] [place] [address] Monocytes/100 WBC (Bld) 9.1 % Normal 4.0-13.0 [facility] Comment on above: Order Comment: Items in this order include: Amylase , Comprehensive Metabolic Panel, Lipase, CBC with differential, Testing Performed By: [facility] [address] [place] [address] CLIA#:[id number] [address] Diaz Mcclain, Sheather Performed By: #### C 215, C123, C122, C47 #### [facility] [address] [place] [address] KHADAR # 3.8 K CUMM Normal 1.8-7.8 [facility] Comment on above: Order Comment: Items in this order include: Amylase , Comprehensive Metabolic Panel, Lipase, CBC with differential, Testing Performed By: [facility] [address] [place] [address] CLIA#:[id number] [address] Diaz Mcclain, Sheather Performed By: #### C 215, C123, C122, C47 #### [facility] [address] [place] [address] Neutrophils/100 WBC (Bld) 64.7 % Normal 40.0-74.0 [facility] Comment on above: Order Comment: Items in this order include: Amylase , Comprehensive Metabolic Panel, Lipase, CBC with differential, Testing Performed By: [facility] [address] [place] [address] CLIA#:[id number] Dr. Diaz Mcclain, Sheather Performed By: #### C 215, C123, C122, C47 #### [facility] [address] [place] [address] Platelet mean volume (Bld) [Entitic vol] 8.7 fL Low 8.9-12.6 [facility] Comment on above: Order Comment: Items in this order include: Amylase , Comprehensive Metabolic Panel, Lipase, CBC with differential, Testing Performed By: [facility] [address] [place] [address] CLIA#:[id number] Dr. Diaz Mcclain, Sheather Performed By: #### C 215, C123, C122, C47 #### [facility] [address] [place] [address] PLT 272 K CUMM Normal 130-400 [facility] Comment on above: Order Comment: Items in this order include: Amylase , Comprehensive Metabolic Panel, Lipase, CBC with differential, Testing Performed By: [facility] [address] [place] [address] CLIA#:[id number] Dr. Diaz Mcclain, Sheather Performed By: #### C 215, C123, C122, C47 #### [facility] [address] [place] [address] RBC 5.06 M CUMM Normal 4.20-5.80 [facility] Comment on above: Order Comment: Items in this order include: Amylase , Comprehensive Metabolic Panel, Lipase, CBC with differential, Testing Performed By: [facility] [address] [place] [address] CLIA#:[id number] Dr. Diaz Mcclain, Sheather Performed By: #### C 215, C123, C122, C47 #### [facility] [address] [place] [address] WBC 5.9 K CUMM Normal 3.8-10.6 [facility] Comment on above: Order Comment: Items in this order include: Amylase , Comprehensive Metabolic Panel, Lipase, CBC with differential, Testing Performed By: [facility] [address] [place] [address] CLIA#:[id number] Dr. Diaz Mcclain, Sheather Performed By: #### C 215, C123, C122, C47 #### [facility] [address] [facility] [address] [place] [address] Comprehensive Metabolic Pane pito 06-15-2021 Albumin [Mass/Vol] 4.6 g/dL Normal 3.2-4.8 [facility] Comment on above: Performed By: #### C 215, C123, C122, C47 #### [facility] [address] [place] [address] Albumin/Globulin [Mass ratio] 1.5 {ratio} Normal [facility] Comment on above: Performed By: #### C 215, C123, C122, C47 #### [facility] [address] [place] [address] Alk Phos 69 U/L Normal 40-127 [facility] Comment on above: Performed By: #### C 215, C123, C122, C47 #### [facility] [address] [place] [address] ALT [Catalytic activity/Vol] 36 U/L Normal 10-49 [facility] Comment on above: Performed By: #### C 215, C123, C122, C47 #### [facility] [address] [place] [address] AST [Catalytic activity/Vol] 27 U/L Normal <34 [facility] Comment on above: Performed By: #### C 215, C123, C122, C47 #### [facility] [address] [place] [address] B/C Ratio 16.0 Ratio Normal [facility] Comment on above: Performed By: #### C 215, C123, C122, C47 #### [facility] [address] [place] [address] Bilirubin [Mass/Vol] 1.1 mg/dL Normal 0.3-1.2 [facility] Comment on above: Performed By: #### C 215, C123, C122, C47 #### [facility] [address] [place] [address] Calcium [Mass/Vol] 9.2 mg/dL Normal 8.3-10.6 [facility] Comment on above: Performed By: #### C 215, C123, C122, C47 #### [facility] [address] [place] [address] Chloride [Moles/Vol] 104 mmol/L Normal 98-107 [facility] Comment on above: Performed By: #### C 215, C123, C122, C47 #### [facility] [address] [place] [address] CO2 [Moles/Vol] 30 mmol/L Normal 20-31 [facility] Comment on above: Performed By: #### C 215, C123, C122, C47 #### [facility] [address] [place] [address] Creatinine [Mass/Vol] 1.0 mg/dL Normal 0.7-1.3 [facility] Comment on above: Performed By: #### C 215, C123, C122, C47 #### [facility] [address] [place] [address] GFR 77 mL/min per 1.73 Normal >60 [facility] Comment on above: Result Comment: The GFR estimate is not adjusted for race. If the patient's race is -Argent[place], the GFR estimate must be multiplied by a factor of 1.21. Performed By: #### C 215, C123, C122, C47 #### [facility] [address] [place] [address] Globulin (S) [Mass/Vol] 3.0 g/dL Normal [facility] Comment on above: Performed By: #### C 215, C123, C122, C47 #### [facility] [address] [place] [address] Glucose [Mass/Vol] 97 mg/dL Normal 74-106 [facility] Comment on above: Performed By: #### C 215, C123, C122, C47 #### [facility] [address] [place] [address] Potassium [Moles/Vol] 4.3 mmol/L Normal 3.5-5.1 [facility] Comment on above: Performed By: #### C 215, C123, C122, C47 #### [facility] [address] [place] [address] Protein [Mass/Vol] 7.6 g/dL Normal 5.7-8.2 [facility] Comment on above: Performed By: #### C 215, C123, C122, C47 #### [facility] [address] [place] [address] Sodium [Moles/Vol] 140 mmol/L Normal 136-145 [facility] Comment on above: Performed By: #### C 215, C123, C122, C47 #### [facility] [address] [place] [address] Urea nitrogen [Mass/Vol] 16 mg/dL Normal 9-23 [facility] Comment on above: Performed By: #### C 215, C123, C122, C47 #### [facility] [address] [place] [address] Extra SSTon 06-15-2021 Extra SST 0.00 received Normal [facility] Comment on above: Order Comment: Items in this order include: Comprehensive Metabolic Panel, Lipid Panel, PSA, TSH w/ reflex to FT4, CBC with differential, HgbA1C, Testing Performed By: [facility] [address] [place] [address] CLIA#:[id number] Dr. Diaz Mcclain, Sheather Performed By: #### C 4124, C8, C47, C404, C406, C215 #### [facility] [address] [place] [address] Lipaseon 06-15-2021 Lipase [Catalytic activity/Vol] 36 U/L Normal 12-53 [facility] Comment on above: Performed By: #### C 4124, C8, C47, C404, C406, C215 #### [facility] [address] [place] [address] READ[i]on 06-15-2021 READ[i] Lab result has been read by JADE Gomez at 06/15/2021 2:35:39 PM. Normal [facility] Comment on above: Order Comment: Items in this order include: Amylase , Comprehensive Metabolic Panel, Lipase, CBC with differential, Testing Performed By: [facility] [address] [place] [address] CLIA#:[id number] Diaz Mcclain, Sheather Lab result has been read by JADE Gomez at 06/15/2021 2:29:27 PM. Lab result has been read by JADE Gomez at 06/15/2021 2:35:33 PM. Lab result has been read by JADE Gomez at 06/15/2021 2:35:35 PM. Lab result has been read by JADE Gomez at 06/15/2021 2:35:39 PM. The GFR estimate is not adjusted for race. If the patient's race is -Argent[place], the GFR estimate must be multiplied by a factor of 1.21. Performed By: #### C 215, C123, C122, C47 #### [facility] [address] [place] [address] SARS-CoV-2 ORF1ab Resp Ql NA A+probeon 02-06-2021 SARS-CoV-2 (COVID-19) ORF1ab region SHAY+probe Ql (Resp) Not detected Normal Not Detected [facility] Comment on above: Performed By: #### 9 4559-2 #### [facility] [address] [place] [address] ECHOCARDIOGRAM COMPLETEon ECHOCARDIOGRAM COMPLETE Patient Info Name: JOS ALEX Age: 55 years : 1965 Gender: Male Ht: 182 cm Wt: 96 kg BSA: 2.22 m2 HR: 66 bpm BP: 132 / 88 mmHg Heart Rhythm: Sinus Rhythm Technical Quality: Fair Exam Date: 01/31/2021 4:41 PM Patient Status: Outpatient Business System Manager: Yohannes Bowden BA, RDCS (AE) Exam Type: ECHOCARDIOGRAM COMPLETE Study Info Indications - Abnormal ekg Attending Physician: OLIVER WATSON Referring Physician: OLIVER WATSON ; [id number] BMI: 28.89 kg/m2 Summary 1. Left ventricular systolic function is normal with an ejection fraction by Biplane Method of Discs of 61 %. 2. The mitral valve has thickened leaflets and borderline bileaflet prolapse. 3. There is mild mitral valve regurgitation. 4. There is no pulmonary hypertension, estimated right ventricle systolic pressure is 19 mmHg. History/Risk Factors PRE-OP CARDIAC TESTING, SANDRINE,. Left Ventricle Left ventricular chamber dimension is normal. Left ventricular systolic function is normal with an ejection fraction by Biplane Method of Discs of 61 %. Normal left ventricular mass. Left ventricular segmental wall motion is normal. The left ventricular diastolic function is normal. Right Ventricle Right ventricular chamber dimension is normal. Right ventricular systolic function is normal. Left Atria Left atrial chamber is normal with a left atrial volume index of 22 ml/m2 by BP MOD. Right Atria Right atrial chamber dimension is normal. Aortic Valve The aortic valve is trileaflet. There is no aortic valve sclerosis. There is no aortic valve regurgitation. Pulmonic Valve The pulmonic valve is normal. There is no pulmonic valve stenosis. There is trace pulmonic regurgitation. Mitral Valve The mitral valve has thickened leaflets and borderline bileaflet prolapse. There is no mitral valve stenosis. There is mild mitral valve regurgitation. Tricuspid Valve The tricuspid valve leaflets are normal. There is no significant tricuspid valve stenosis. There is trace tricuspid valve regurgitation. There is no pulmonary hypertension, estimated right ventricle systolic pressure is 19 mmHg. Pericardium/Pleural The pericardium appears normal. There is no pericardial effusion. Inferior Vena Cava Normal inferior vena cava with >50% collapse upon inspiration consistent with normal right atrial pressure. Aorta The aortic measurements are indexed to age and body surface area. The aortic root is normal measuring 3.7 cm with an index of 1.7 cm/m2. The proximal ascending aorta is normal measuring 3.5 cm with an index of 1.6 cm/m2. Left Ventricular Outflow Tract Name Value Normal LVOT 2D LVOT Diameter 2.2 cm LVOT Doppler LVOT Peak Velocity 0.9 m/s LVOT Mean Gradient 2 mmHg LVOT VTI 19 cm LVOT Stroke Volume 72 ml LVOT Stroke Index 32.36 ml/m2 LVOT CO 4.9 l/min LVOT CI 2.2 L/min/m2 Mitral Valve Name Value Normal MV Doppler MV Decel Darke 225 cm/s2 MV PHT 90 ms MV Area (PHT) 2.4 cm2 4.0-5.0 MV Diastolic Function MV E Peak Velocity 1 m/s MV A Peak Velocity 1 m/s MV E/A 1.0 MV Decel Time 312 ms MV Annular TDI MV Septal e' Velocity 8.5 cm/s >=8.0 MV E/e' (Septal) 8.3 <=8.0 MV Lateral e' Velocity 11.0 cm/s >=10.0 MV E/e' (Lateral) 6.4 <=8.0 MV e' Average 9.75 cm/s MV E/e' (Average) 7.3 Tricuspid Valve Name Value Normal TV Regurgitation Doppler TR Peak Velocity 2.00 m/s Estimated PAP/RSVP RA Pressure 3 mmHg <=5 PA Systolic Pressure 19 mmHg <=36 RV Systolic Pressure 19 mmHg <36 Aorta Name Value Normal Ascending Aorta Ao Root Diameter (2D) 3.7 cm 3.1-3.7 Ao Root Diam Index (2D) 1.7 cm/m2 1.5-1.9 Prox Asc Ao Diameter 3.5 cm 2.6-3.4 Prox Asc (more content not included)... [facility] Comment on above: Order Comment: Check for pulmonary HTN Otheron 04-24-2020 No acute fracture Workstation ID: [id number] [facility] EXAMINATION: XR SHOU LDER LEFT 2+ VIEWS (STANDARD) 04/24/2020 7:07 pm HISTORY: ORDERING SYSTEM PROVIDED HISTORY: left shoulder pain, TECHNOLOGIST PROVIDED HISTORY: Injury/Trauma Reason for exam: pain Cancer History: na Surgery, RadiationHistory: na Encounter Type: Initial Mechanism of injury: fell on ice x 2 days ORDERING SYSTEM PROVIDED DIAGNOSIS CODES: M25.512 Acute pain of left shoulder COMPARISON: None FINDINGS: There is no acute fracture or significant arthropathy. There is posttraumatic deformity distal left clavicle. [facility] Interface, Rad In Fu ji Speechq - 04/24/2020 8:04 PM EST EXAMINATION: XR SHOULDER LEFT 2+ VIEWS (STANDARD) 04/24/2020 7:07 pm HISTORY: ORDERING SYSTEM PROVIDED HISTORY: left shoulder pain, TECHNOLOGIST PROVIDED HISTORY: Injury/Trauma Reason for exam: pain Cancer History: na Surgery, RadiationHistory: na Encounter Type: Initial Mechanism of injury: fell on ice x 2 days ORDERING SYSTEM PROVIDED DIAGNOSIS CODES: M25.512 Acute pain of left shoulder COMPARISON: None FINDINGS: There is no acute fracture or significant arthropathy. There is posttraumatic deformity distal left clavicle. IMPRESSION: No acute fracture Workstation ID: [id number] [facility] XR SHOULDER LEFT 2+ VIEWS (S TANDARD)on 04-24-2020 XR SHOULDER LEFT 2+ VIEWS (STANDARD) EXAMINATION: XR SHOULDER LEFT 2+ VIEWS (STANDARD) 04/24/2020 7:07 pm HISTORY: ORDERING SYSTEM PROVIDED HISTORY: left shoulder pain, TECHNOLOGIST PROVIDED HISTORY: Injury/Trauma Reason for exam: pain Cancer History: na Surgery, RadiationHistory: na Encounter Type: Initial Mechanism of injury: fell on ice x 2 days ORDERING SYSTEM PROVIDED DIAGNOSIS CODES: M25.512 Acute pain of left shoulder COMPARISON: None FINDINGS: There is no acute fracture or significant arthropathy. There is posttraumatic deformity distal left clavicle. IMPRESSION: No acute fracture Workstation ID: [id number] Dictated by: FELIPE TOVAR on FriApr 24, 2020 8:02:22 PM EST Transcribed by: FELIPE TOVAR on FriApr 24, 2020 8:02:22 PM EST Finalized by: FELIPE TOVAR on FriApr 24, 2020 8:02:22 PM EST Normal [facility] Comment on above: Order Comment: Injur y/Trauma or Illness?:Injury/Trauma How long have you had these symptoms (acute/chronic)?:Acute Reason for exam?:pain History of cancer?:na Surgeries, chemotherapy, or radiation?:na Type of Exam?:Initial Mechanism of injury?:fell on ice x 2 days CBCon 09-02-2019 Erythrocyte distribution width (RBC) [Entitic vol] 11.8 % 11.6 - 14.8 % [facility] Hematocrit (Bld) [Volume fraction] 34.7 % Low 41 - 53 % [facility] Hemoglobin (Bld) [Mass/Vol] 11.5 g/dL Low 13.5 - 17.5 g/dL [facility] Interpretation and review of laboratory results Abnormal [facility] MCH (RBC) [Entitic mass] 30.7 pg 26 - 34 pg [facility] MCHC (RBC) [Mass/Vol] 33.1 g/dL 31 - 37 g/dL [facility] MCV (RBC) [Entitic vol] 92.5 fL 80 - 100 fL [facility] Nucleated RBC (Bld) [#/Vol] 0.00 10*3/uL [facility] Nucleated RBC/100 WBC (Bld) [Ratio] 0.0 % [facility] Platelet mean volume (Bld) [Entitic vol] 9.1 fL Low 9.4 - 12.4 fL [facility] Platelets (Bld) [#/Vol] 170 10*3/uL [facility] RBC (Bld) [#/Vol] 3.75 10*6/uL Low [facility] WBC (Bld) [#/Vol] 7.26 10*3/uL [facility] Chem 7on 09-02-2019 Anion gap [Moles/Vol] 10 mmol/L 10 - 20 mmol/L [facility] Chloride [Moles/Vol] 103 mmol/L 98 - 108 mmol/L [facility] Creatinine [Mass/Vol] 0.80 mg/dL 0.50 - 1.30 [facility] GFR/1.73 sq M predicted among non-blacks MDRD (S/P/Bld) [Vol rate/Area] The eGFR should be used for monitoring renal function only and not for medication dosing. [facility] GFR/1.73 sq M.predicted CKD-EPI (S/P/Bld) [Vol rate/Area] 100 >=60 mL/min/1.73 m2 [facility] Glucose [Mass/Vol] 107 mg/dL High 65 - 99 mg/dL [facility] HCO3 [Moles/Vol] 27 mmol/L 21 - 32 mmol/L [facility] Interpretation and review of laboratory results Abnormal [facility] Potassium [Moles/Vol] 4.6 mmol/L 3.5 - 5.1 mmol/L [facility] Sodium [Moles/Vol] 135 mmol/L 135 - 145 mmol/L [facility] Urea nitrogen [Mass/Vol] 11 mg/dL 8 - 25 mg/dL [facility] Urea nitrogen/Creatinin e [Mass ratio] 13.8 mg/mg [facility] CBCon 08-31-2019 Erythrocyte distribution width (RBC) [Entitic vol] 12.0 % 11.6 - 14.8 % [facility] Hematocrit (Bld) [Volume fraction] 39.0 % Low 41 - 53 % [facility] Hemoglobin (Bld) [Mass/Vol] 13.4 g/dL Low 13.5 - 17.5 g/dL [facility] Interpretation and review of laboratory results Abnormal [facility] MCH (RBC) [Entitic mass] 30.8 pg 26 - 34 pg [facility] MCHC (RBC) [Mass/Vol] 34.4 g/dL 31 - 37 g/dL [facility] MCV (RBC) [Entitic vol] 89.7 fL 80 - 100 fL [facility] Nucleated RBC (Bld) [#/Vol] 0.00 10*3/uL [facility] Nucleated RBC/100 WBC (Bld) [Ratio] 0.0 % [facility] Platelet mean volume (Bld) [Entitic vol] 9.1 fL Low 9.4 - 12.4 fL [facility] Platelets (Bld) [#/Vol] 223 10*3/uL [facility] RBC (Bld) [#/Vol] 4.35 10*6/uL Low [facility] WBC (Bld) [#/Vol] 9.82 10*3/uL [facility] Chem 7on 08-31-2019 Anion gap [Moles/Vol] 13 mmol/L 10 - 20 mmol/L [facility] Chloride [Moles/Vol] 102 mmol/L 98 - 108 mmol/L [facility] Creatinine [Mass/Vol] 0.90 mg/dL 0.50 - 1.30 [facility] GFR/1.73 sq M predicted among non-blacks MDRD (S/P/Bld) [Vol rate/Area] The eGFR should be used for monitoring renal function only and not for medication dosing. [facility] GFR/1.73 sq M.predicted CKD-EPI (S/P/Bld) [Vol rate/Area] 95 >=60 mL/min/1.73 m2 [facility] Glucose [Mass/Vol] 136 mg/dL High 65 - 99 mg/dL [facility] HCO3 [Moles/Vol] 27 mmol/L 21 - 32 mmol/L [facility] Interpretation and review of laboratory results Abnormal [facility] Potassium [Moles/Vol] 4.5 mmol/L 3.5 - 5.1 mmol/L [facility] Sodium [Moles/Vol] 137 mmol/L 135 - 145 mmol/L [facility] Urea nitrogen [Mass/Vol] 19 mg/dL 8 - 25 mg/dL [facility] Urea nitrogen/Creatinin e [Mass ratio] 21.1 mg/mg High [facility] Hematologyon 08-30-2019 Basophils (Bld) [#/Vol] 0.02 10*3/uL [facility] Basophils/100 WBC (Bld) 0.2 % [facility] Eosinophils (Bld) [#/Vol] 0.05 10*3/uL [facility] Eosinophils/100 WBC (Bld) 0.5 % [facility] Hematocrit (Bld) [Volume fraction] 43.1 % 41 - 53 % [facility] Hemoglobin (Bld) [Mass/Vol] 14.9 g/dL 13.5 - 17.5 g/dL [facility] Lymphocytes (Bld) [#/Vol] 2.27 10*3/uL [facility] Lymphocytes/100 WBC (Bld) 20.5 % [facility] MCH (RBC) [Entitic mass] 30.3 pg 26 - 34 pg [facility] MCV (RBC) [Entitic vol] 87.8 fL 80 - 100 fL [facility] Monocytes (Bld) [#/Vol] 0.82 10*3/uL [facility] Monocytes/100 WBC (Bld) 7.4 % [facility] Neutrophils (Bld) [#/Vol] 7.91 10*3/uL High [facility] Neutrophils/100 WBC (Bld) 71.3 % [facility] Nucleated RBC (Bld) [#/Vol] 0.00 10*3/uL [facility] Platelets (Bld) [#/Vol] 261 10*3/uL [facility] RBC (Bld) [#/Vol] 4.91 10*6/uL [facility] WBC (Bld) [#/Vol] 11.08 10*3/uL [facility] Metabolic Panelon 08-30-2019 Lactate [Moles/Vol] 1.5 mmol/L 0.6 - 2 mmol/L [facility] Albumin [Mass/Vol] 4.5 g/dL 3.2 - 5.2 g/dL [facility] ALP [Catalytic activity/Vol] 75 U/L 40 - 150 U/L [facility] ALT [Catalytic activity/Vol] 21 U/L 0 - 40 U/L [facility] Anion gap [Moles/Vol] 17 mmol/L 10 - 20 mmol/L [facility] AST [Catalytic activity/Vol] 21 U/L 0 - 45 U/L [facility] Bilirubin [Mass/Vol] 0.7 mg/dL 0 - 1.3 mg/dL [facility] Calcium [Mass/Vol] 9.4 mg/dL 8.4 - 10. 2 mg/dL [facility] Chloride [Moles/Vol] 99 mmol/L 98 - 108 mmol/L [facility] Creatinine [Mass/Vol] 0.82 mg/dL 0.50 - 1.30 [facility] GFR/1.73 sq M predicted among non-blacks MDRD (S/P/Bld) [Vol rate/Area] The eGFR should be used for monitoring renal function only and not for medication dosing. [facility] Glucose [Mass/Vol] 96 mg/dL 65 - 99 mg/dL [facility] Potassium [Moles/Vol] 3.9 mmol/L 3.5 - 5.1 mmol/L [facility] Protein [Mass/Vol] 7.7 g/dL 6 - 8 g/dL [facility] Sodium [Moles/Vol] 136 mmol/L 135 - 145 mmol/L [facility] Urea nitrogen [Mass/Vol] 17 mg/dL 8 - 25 mg/dL [facility] Urea nitrogen/Creatinin e [Mass ratio] 20.7 mg/mg High [facility] Otheron 08-30-2019 Interpretation and review of laboratory results Normal [facility] GFR/1.73 sq M.predicted CKD-EPI (S/P/Bld) [Vol rate/Area] 99 >=60 mL/min/1.73 m2 [facility] HCO3 [Moles/Vol] 24 mmol/L 21 - 32 mmol/L [facility] Interpretation and review of laboratory results Abnormal [facility] Erythrocyte distribution width (RBC) [Entitic vol] 12.0 % 11.6 - 14.8 % [facility] Immature granulocytes (Bld) [#/Vol] 0.01 10*3/uL [facility] Immature granulocytes/100 WBC (Bld) 0.10 % [facility] Comment on above: The IG parameter is the percentage of metamyelocytes, myelocytes and promyelocytes. An immature granulocyte count (IG) of 1% or more suggests the possibility of infection, an IG count of 3% is very likely related to an infection. Interpretation and review of laboratory results Abnormal [facility] MCHC (RBC) [Mass/Vol] 34.6 g/dL 31 - 37 g/dL [facility] Nucleated RBC/100 WBC (Bld) [Ratio] 0.0 % [facility] Platelet mean volume (Bld) [Entitic vol] 9.0 fL Low 9.4 - 12.4 fL [facility] Vital Signs Date Time Vital Sign Value Performing Clinician Nacho arce 03-25-2023 07:54-0500 Diastolic blood pressure 70 mm[Hg] [employer] Work Phone: [facility] 03-25-2023 07:54-0500 Systolic blood pressure 112 mm[Hg] [employer] Work Phone: [facility] 03-25-2023 07:53-0500 Body height 182.9 cm [employer] Work Phone: [facility] 03-25-2023 07:53-0500 Body mass index (BMI) [Ratio] 28.75 kg/m2 [employer] Work Phone: [facility] 03-25-2023 07:53-0500 Body weight 96.16 kg [employer] Work Phone: [facility] 03-25-2023 07:53-0500 Heart rate 60 /min Oliver Silver DO Work Phone: [facility] 02-08-2021 13:15-0500 Diastolic blood pressure 87 mm[Hg] Marty Gipson MD Work Phone: [facility] 02-08-2021 13:15-0500 Heart rate 96 /min Marty Gipson MD Work Phone: [facility] 02-08-2021 13:15-0500 Respiratory rate 19 /min Marty Gipson MD Work Phone: [facility] 02-08-2021 13:15-0500 SaO2% (BldA) [Mass fraction] 93 % Marty Gipson MD Work Phone: [facility] 02-08-2021 13:15-0500 Systolic blood pressure 128 mm[Hg] Marty Gipson MD Work Phone: [facility] 02-08-2021 13:05-0500 Body temperature 97.5 [degF] Marty Gipson MD Work Phone: [facility] 02-08-2021 05:50-0500 Body height 182.9 cm Marty Gipson MD Work Phone: [facility] 02-08-2021 05:50-0500 Body mass index (BMI) [Ratio] 28.88 kg/m2 Marty Gipson MD Work Phone: [facility] 02-08-2021 05:50-0500 Body weight 96.6 kg Marty Gipson MD Work Phone: [facility] 01-30-2021 16:22-0500 Diastolic blood pressure 88 mm[Hg] Oliver Silver DO Work Phone: [facility] 01-30-2021 16:22-0500 Systolic blood pressure 132 mm[Hg] Oliver Silver DO Work Phone: [facility] 01-30-2021 16:19-0500 Body height 182.9 cm Oliver Silver DO Work Phone: [facility] 01-30-2021 16:19-0500 Body mass index (BMI) [Ratio] 28.62 kg/m2 Oliver Silver DO Work Phone: [facility] 01-30-2021 16:19-0500 Body weight 95.71 kg Oliver Silver DO Work Phone: [facility] 01-30-2021 16:19-0500 Heart rate 90 /min Oliver Silver DO Work Phone: [facility] 04-24-2020 18:49-0500 Pulse Oximetry 97 % Maria D Rome [facility] 04-24-2020 18:43-0500 BMI (Body Mass Index) 28.62 kg/m2 Maria D [place] [facility] 04-24-2020 18:43-0500 Body Temperature 97.39 [degF] Maria D Johnny [facility] 04-24-2020 18:43-0500 Body weight 95.71 kg Maria D Johnny [facility] 04-24-2020 18:43-0500 BP Diastolic 75 mm[Hg] Maria D [place] [facility] 04-24-2020 18:43-0500 BP Systolic 111 mm[Hg] Maria D [place] [facility] 04-24-2020 18:43-0500 Height 182.9 cm Maria Dakanksha Gomezis [facility] 04-24-2020 18:43-0500 Pulse (Heart Rate) 84 /min Maria D Johnny [facility] 04-24-2020 18:43-0500 Respiratory Rate 16 /min Maria D [place] [facility] 09-03-2019 08:38-0400 Body Temperature 98.1 [degF] Generic [facility] 09-03-2019 08:38-0400 BP Diastolic 71 mm[Hg] Generic [facility] 09-03-2019 08:38-0400 BP Systolic 121 mm[Hg] Generic [facility] 09-03-2019 08:38-0400 Pulse (Heart Rate) 62 /min Generic [facility] 09-03-2019 08:38-0400 Respiratory Rate 16 /min Generic [facility] 09-03-2019 05:35-0400 Pulse Oximetry 98 % Generic [facility] 08-31-2019 00:02-0400 Body Temperature 98.2 [degF] Generic [facility] 08-31-2019 00:02-0400 BP Diastolic 71 mm[Hg] Generic [facility] 08-31-2019 00:02-0400 BP Systolic 109 mm[Hg] Generic [facility] 08-31-2019 00:02-0400 Pulse (Heart Rate) 77 /min Generic [facility] 08-31-2019 00:02-0400 Pulse Oximetry 97 % Generic [facility] 08-31-2019 00:02-0400 Respiratory Rate 16 /min Generic [facility] 08-30-2019 18:09-0400 BMI (Body Mass Index) 26.58 kg/m2 Amina Lange [facility] 08-30-2019 18:09-0400 Body Temperature 98.01 [degF] Amina Lange [facility] 08-30-2019 18:09-0400 Body weight 88.91 kg Amina Lange [facility] 08-30-2019 18:09-0400 BP Diastolic 85 mm[Hg] Amina Lange [facility] 08-30-2019 18:09-0400 BP Systolic 117 mm[Hg] Amina Lange [facility] 08-30-2019 18:09-0400 Height 182.9 cm Amina Lange [facility] 08-30-2019 18:09-0400 Pulse (Heart Rate) 95 /min Amina Lange [facility] 08-30-2019 18:09-0400 Pulse Oximetry 97 % Amina Lange [facility] 08-30-2019 18:09-0400 Respiratory Rate 17 /min Amina Lange [facility] Encounters Encounter Date Encounter Type Care Provider Facility Start: 08-19-2024 ambulatory Julian Vera Facility :[facility] Start: 06-18-2024 End: 06-18-2024 ambulatory Julian Vera Facility:[facility] Start: 04-28-2024 End: 04-28-2024 ambulatory Facility:[facility] Start: 04-28-2024 End: 04-28-2024 Telemedicine consultation with patient Agustina Mark RUELAS.EINSTEIN BROS [employer]EL[employer] ASSISTANT MANAGER Work Phone: Telemedicine Comment on above: Acute non-recurrent sinusitis of other sinus (Primary Dx) Start: 04-01-2024 ambulatory ERMA [facility] Start: 04-01-2024 End: 04-01-2024 [facility] Start: 03-30-2024 ambulatory ERMA KNIGHT [facility] Start: 03-18-2024 ambulatory ERMA KNIGHT [facility] Start: 03-18-2024 End: 03-18-2024 [facility] Start: 03-18-2024 End: 03-18-2024 Encounter for general adult medical examination without abnormal findings [facility] Start: 12-04-2023 End: 12-04-2023 Telephone encounter Anaid Michelle [facility] Start: 12-02-2023 ambulatory ERMA KNIGHT [facility] Start: 11-29-2023 End: 11-29-2023 Telephone encounter Erma Knight Work Phone: [facility] Start: 08-26-2023 End: 08-26-2023 Orders Only Oliver Watson DO Work Phone: [facility] Comment on above: Mitral valve disease (Primary Dx) Start: 05-28-2023 ambulatory ERMA KNIGHT [facility] Start: 05-27-2023 ambulatory ERMA KNIGHT [facility] Start: 03-31-2023 Encounter for genera l adult medical examination without abnormal findings [facility] Start: 03-27-2023 Documentation procedure Stew Barros MA [facility] Start: 03-27-2023 End: 03-28-2023 ambulatory OLIVER WATSON [facility] Start: 03-25-2023 End: 03-26-2023 ambulatory ERMA KNIGHT [facility] Start: 03-25-2023 End: 03-25-2023 Office outpatient visit 15 minutes Oliver Watson DO Work Phone: [facility] Comment on above: Sleep apnea, unspeci fied type (Primary Dx); Hyperlipidemia, unspecified hyperlipidemia type; Chest discomfort; Palpitations; Mitral valve disease Start: 02-03-2023 Orders Only Oliver naik DO Work Phone: [facility] Comment on above: Chest discomfort (Pr imary Dx) Start: 03-12-2022 Orders Only Jeff Childs RN [facility] Comment on above: Mitral valve insuffi ciency, unspecified etiology (Primary Dx) Start: 02-08-2021 End: 02-08-2021 ambulatory MARTY GIPSON [facility] Start: 02-08-2021 End: 02-08-2021 Evaluation and management of inpatient Marty Gipson MD Work Phone: [facility] Start: 02-08-2021 End: 02-08-2021 Subsequent hospital visit by physician Marty Gipson MD Work Phone: [facility] Start: 02-06-2021 ambulatory GABE HAMILTON [facility] Start: 02-05-2021 End: 02-05-2021 Documentation procedure Marty Gipson MD Work Phone: [facility] Start: 01-31-2021 End: 02-01-2021 ambulatory ERMA SANCHEZ [facility] Start: 01-30-2021 End: 01-31-2021 Office outpatient new 30 minutes Oliver Watson DO Work Phone: [facility] Comment on above: Pulmonary HTN (HCC) (Primary Dx); Sleep apnea, unspecified type; Hyperlipidemia, unspecified hyperlipidemia type Start: 01-27-2021 Chart abstracting Amaris Crawford CNP Work Phone: [facility] Start: 05-16-2020 End: 05-16-2020 Orders Only Jessica Grant Work Phone: [facility] Start: 04-24-2020 End: 04-25-2020 ambulatory MARIA D ROME [facility] Start: 04-24-2020 End: 04-24-2020 Subsequent hospital visit by physician Maria D Rome Work Phone: [facility] Comment on above: Acute pain of left s hoandie Start: 04-24-2020 End: 04-24-2020 Office outpatient visit 25 minutes Maria D Rome Work Phone: [facility] [place] Comment on above: Acute pain of left s hoandie (Primary Dx); Fall, initial encounter Start: 08-30-2019 End: 09-03-2019 Emergency department patient visit Generic [facility] Work Phone: [facility] Comment on above: Acute diverticulitis Start: 08-30-2019 End: 08-30-2019 Patient encounter procedure Amina Lange Work Phone: [facility] [place] Comment on above: Left lower quadrant abdominal pain (Primary Dx); History of diverticulitis Procedures Date Procedure Procedure Detail Performing Clinician Start: 03-18-2024 PSA screening ERMA SMITH Comment on above: Order Comment: Locat ion: Performed By: #### L [id number], [id number], LAB17, LAB18 #### DIAZ MCCLAIN ([id number]) [facility] (COP) [address], [address] [place] [address] Start: 03-18-2024 Lipid 1996 panel - S robinson or Plasma Agustina White APRN.EINSTEIN BROS [employer]AGEL[employer] ASSISTANT MANAGER Work Phone: Start: 03-25-2023 Ecg routine ecg w/le ast 12 lds w/i&r Oliver Watson DO Work Phone: Start: 03-12-2022 PSA screening Comment on above: Result Comment: This test was performed using the [employer] in a two-site sandwich immunoassay assay. Results from the Siemens Atellica PSA assay should not be interpreted as being definitive for the prescence or absence of Prostate cancer. Values obtained from different methods cannot be used interchangeably. Performed By: #### C 4124, C8, C47, C404, C406, C215 #### [facility] [address] [place] [address] Start: 04-24-2020 Radex shoulder compl ete minimum 2 views Maria D Rome Work Phone: Start: 09-02-2019 Basic metabolic 1998 panel - Serum or Plasma Jony Patricio Work Phone: Start: 09-02-2019 Complete blood count (hemogram) panel - Blood by Automated count Jony Patricio Work Phone: Start: 09-01-2019 Adult depression scr eening assessment Oliver Watson DO Work Phone: Start: 08-31-2019 Basic metabolic 1997 panel - Serum or Plasma Harini Sushyk Work Phone: Start: 08-31-2019 Complete blood count (hemogram) panel - Blood by Automated count Harini Edgardok Work Phone: Start: 08-30-2019 Lactate [Moles/volum e] in Serum or Plasma Harini Sushyk Work Phone: Start: 08-30-2019 Complete blood count with white cell differential, automated Harini Sushyk Work Phone: Start: 08-30-2019 Complete blood count with white cell differential, manual Harini Sushyk Work Phone: Start: 08-30-2019 Comprehensive metabo lic 1999 panel - Serum or Plasma Harini Sushyk Work Phone: Plan of Treatment Date Care Activity Detail Author Start: 2038 RSV Vaccine (1 - 1-dose 75+ series) RSV Vaccine (1 - 1-dose 75+ series) [facility] Start: 03-18-2029 Lipid panel Lipid Screening [facility] Start: 03-18-2029 Prostate specific antigen measurement Prostate Cancer Screening Discussion [facility] Start: 07-16-2028 DTaP,Tdap,and Td Vaccines (2 - Td or Tdap) DTaP,Tdap,and Td Vaccines (2 - Td or Tdap) [facility] Start: 07-16-2028 Tetanus vaccination Tetanus: Every 10yrs [facility] Start: 07-16-2028 Urine microalbumin profile DTaP,Tdap,Td Vaccine (3 - Td or Tdap) [facility] Start: 03-18-2027 Diabetes Screening Diabetes Screening [facility] Start: 12-03-2023 End: 10-25-2024 Echocardiography Echocardiogram complete Echocardiography Routine Mitral valve disease Expected: 12/03/2023, Expires: 10/25/2024 [facility] Work Phone: Comment on above: Expected: 12/03/2023, Expires: Start: 11-02-2023 Covid-19 Vaccine () Covid-19 Vaccine () [facility] Start: 11-02-2023 Influenza vaccination [facility] Start: 03-25-2023 End: 05-23-2024 MCT- Mobile Cardiac Telemetry [facility]iac Services Routine Palpitations Expected: 03/25/2023, Expires: 05/23/2024 [facility] Work Phone: Comment on above: Expected: 03/25/2023, Expires: Start: 03-04-2023 End: 03-04-2023 Patient encounter procedure 03/04/2023 1:20 PM EST Office Visit [facility] [address] [place] [address] Oliver Watson DO [address] [place] [address] [facility] Start: 01-31-2023 End: 05-11-2023 Echocardiography Echocardiogram complete Echocardiography Routine Mitral valve insufficiency, unspecified etiology Expected: 01/31/2023, Expires: 05/11/2023 [facility] Work Phone: Comment on above: Expected: 01/31/2023, Expires: 4 Start: 11-01-2022 COVID-19 Vaccine () COVID-19 Vaccine ( season) [facility] Start: 11-01-2022 Influenza vaccination Sequential Influenza Vaccine (#1) [facility] Start: 11-01-2021 Influenza vaccination Sequential Influenza Vaccine (#1) [facility] Start: 02-08-2021 COVID-19 Vaccine (3 - Booster for Pfizer series) COVID-19 Vaccine (3 - Booster for Pfizer series) [facility] Start: 02-08-2021 End: 02-08-2021 Arthroscopy shoulder rotator cuff repair ARTHROSCOPY SHOULDER REPAIR ROTATOR CUFF Complete rotator cuff tear or rupture of left shoulder, not specified as traumatic 02/08/2021 7:10 AM EST [facility] Start: 01-31-2021 End: 01-31-2021 Patient encounter procedure 01/31/2021 Appointment Cardiology Oliver Watson, [address] [place] [address] [address] [place] [address] [facility] Start: 01-30-2021 End: 04-01-2022 Echocardiography Echocardiogram complete Echocardiography Routine Pulmonary HTN (HCC) Expected: 01/30/2021, Expires: 04/01/2022 [facility] Work Phone: Comment on above: Expected: 01/30/2021, Expires: 3 Start: 01-29-2021 Adolescent depression screening assessment Depression Screening [facility] Start: 01-29-2021 Hepatitis C screening Hepatitis C Screening [facility] Start: 01-29-2021 HIV screening HIV Screening [facility] Start: 01-29-2021 Lipid panel Cholesterol Screening (Lipid Panel) [facility] Start: 01-29-2021 Screening for malignant neoplasm of colon Colorectal Cancer Screening: Colonoscopy [facility] Start: 01-29-2021 Social Influencers of Health Screening Social Influencers of Health Screening [facility] Start: 10-04-2020 Administration of herpes zoster vaccine Zoster Vaccines (2 of 2) [facility] Start: 10-04-2020 COVID-19 Vaccine (3 - Booster for Pfizer series) COVID-19 Vaccine (3 - Booster for Pfizer series) [facility] Start: 10-04-2020 Zoster Vaccines (2 of 2) Zoster Vaccines (2 of 2) Beatriz curry Start: 08-31-2020 Depression screening using PHQ-9 (Patient Health Questionnaire 9) score Depression Screening (PHQ-2/9) [facility] Start: 11-02-2019 Influenza vaccination given [facility] Start: 2013 Administration of herpes zoster vaccine Zoster Vaccines (1 of 2) [facility] Start: 2013 Screening for malignant neoplasm of colon [facility] Start: 04-14-2013 Screening for malignant neoplasm of colon Fecal occult blood test (FOBT,FIT) [facility] Start: 2008 Screening for malignant neoplasm of colon [facility] Start: 1981 Anxiety Screening Anxiety Screening [facility] Start: 1981 Depression Screening Depression Screening [facility] Start: 1981 Hepatitis C antibody, confirmatory test Hepatitis C Screening [facility] Start: 1981 Hepatitis C screening Hepatitis C Screening [facility] Start: 1981 HIV screening HIV Screening [facility] Start: 1979 COVID-19 Vaccine (1 of 2) COVID-19 Vaccine (1 of 2) [facility] Start: 1978 HIV screening HIV Screening [facility] Start: 1975 Adolescent depression screening assessment Depression Screening (PHQ9) [facility] Start: 1966 History and physical examination, annual for health maintenance Wellness Visit [facility] Start: 1963 Hepatitis C antibody, confirmatory test Hepatitis C Screening [facility] Start: 1963 Prostate specific antigen measurement PSA Level [facility] Start: 1963 Screening for malignant neoplasm of colon [facility] Start: 1963 Tetanus vaccination Tetanus: Every 10yrs [facility] End: 02-04-2024 12 lead ECG ECG 12 lead ECG Routine Chest discomfort 1 Occurrences starting 02/03/2023 until 02/04/2024 [facility] Work Phone: Comment on above: 1 Occurrences starting 02/03/2023 until 02/04/2024 12 lead ECG ECG 12 lead ECG Routine Chest discomfort 03/25/2023 7:56 AM EST [facility] End: 08-31-2019 Basic metabolic 1998 panel - Serum or Plasma Chem 7 Lab Routine AM Draw for 1 Occurrences starting 08/31/2019 until 08/31/2019 [facility] Comment on above: AM Draw for 1 Occurrences starting 08/30 until 08/31/2019 End: 08-31-2019 Complete blood count (hemogram) panel - Blood by Automated count CBC Lab Routine AM Draw for 1 Occurrences starting 08/31/2019 until 08/31/2019 [facility] Comment on above: AM Draw for 1 Occurrences starting 08/30 until 08/31/2019 CT Abdomen Pelvis [facility] IV Contrast Only CT Abdomen Pelvis With IV Contrast Only Imaging STAT 08/30/2019 8:38 PM EDT [facility] Immunizations Immunization Date Immunization Notes Care Provider Fa ciliconstance 01-27-2021 influenza virus vacc ine, unspecified formulation Oliver Watson DO Work Phone: [facility] Payers Date Payer Category Payer Self-pay 2023 Private Health Insurance [id number] 2023 Private Health Insurance [id number] 2023 Unknown [id number] 2020 Unknown [id number] 2020 Unknown PHCS PHCS GENERI C 2020-Present [id number] 2020 Unknown [id number] 2018 Unknown MMO MED MUTUAL S UPERMED PPO xxxxxxxxxxxx 2018-Present xxxxxxxxxxxx [id number] 2018 Unknown [id number] 2018 Unknown [id number] .[id number] 2018 Unknown [id number] 1963 Unknown [id number] 2.16.840.1.287082.3.579.2 .902 1963 Unknown [id number] 2.16.840.1.081402.3.579.2 .903 1963 Unknown [id number] 2.16.840.1.644562.3.579.2 .903 1963 Unknown [id number] 2.16.840.1.744242.3.579.2 .1143 1963 Unknown [id number] 2.16.840.1.122035.3.579.2 .1143 1963 Unknown [id number] 2.16840.1.753932.3.579.2 .903 1963 Unknown [id number] 2.16840.1.434062.3.579.2 .900 1963 Unknown [id number] 2.840.1.511162.3.579.2 .1260 1963 Unknown [id number] 2.16.840.1.343905.3.579.2 .1260 1963 Unknown [id number] 2.16840.1.643828.3.579.2 .1260 1963 Unknown [id number] 2.16840.1.590081.3.579.2 .1260 1963 Unknown [id number] 2.16840.1.635867.3.579.2 .1260 1963 Unknown [id number] 2.16.840.1.189393.3.579.2 .1260 1963 Unknown [id number] 2.16840.1.732541.3.579.2 .1260 1963 Unknown [id number] 2.16.840.1.261694.3.579.2 .1260 1963 Unknown [id number] 2.16.840.1.183658.3.579.2 .1260 1963 Unknown [id number] 2.16.840.1.750498.3.579.2 .1260 1963 Unknown [id number] 2.16.840.1.926463.3.579.2 .1260 Private Health Insurance [id number] Unknown [id number] [id number] .462 Unknown [id number] 2..[id number] .462 Social History Date Type Detail Facility Start: 08-30-2019 End: 10-05-2019 Tobacco smoking status DEIS Never smoker [facility] Start: 08-30-2019 End: 03-25-2023 Alcohol intake Current drinker of alcohol (finding) [facility] Start: 08-30-2019 Alcohol Comment socially [facility] Start: 1965 Sex Assigned At Not [facility] file [facility] Exposure to SARS-CoV -2 (event) Not sure [facility] Start: 10-05-2019 End: 04-24-2020 Tobacco use and exposure Never used [facility] Start: 04-24-2020 Alcohol Comment Occ/socially [facility] Start: 09-01-2019 End: 01-31-2021 Alcohol intake [facility] Start: 04-24-2020 History SDOH Alcohol Comment Occ/socially [facility] Start: 02-07-2021 Alcohol intake Ex-drinker (finding) [facility] Start: 02-07-2021 History SDOH Alcohol Comment 2 per month [facility] Start: 1965 Sex Assigned At Male T [facility] Tobacco smoking stat [facility] Unknown if ever smoked [facility] Start: 09-01-2019 End: 01-31-2021 Tobacco use panel [facility] Adult Depression Scr eening Assessment 0 [facility] Start: 10-04-2019 Gender identity Identifies as male gender (finding) [facility] Start: 10-04-2019 Sexual orientation Heterosexual (shayne garcia) [facility] Medical Equipment Procedure Code Equipment Code Equipment Origin al Text Equipment Identifier Dates Due [place] Sut 5.5mm Healicoil Regenesorb 3 Sutures - Sn/A - [id number]/A, [id number] FDA Start: 02-08-2021 Clinical Notes 01-30-2021 to 04-28-2024 Patient InstructionsAgustina White APRN.EINSTEIN BROS BAGEL[employer] ASSISTANT MANAGER - 04/28/2024 10:41 AM ESTTelephone Encounter - Anaid Michelle RPh - 12/04/2023 10:12 AM Stew Joya MA - 03/27/2023 8:48 AM EST Note Date & Type Note Facility 04-28-2024 Instructions Agustina White APRN.CNP - 04/28/2024 10:56 AM EST Images from the original note were not included. Adult Sinusitis Patient Education What is Sinusitis? Sinusitis [demt-khs-wnmy-tis] is inflammation of the sinuses or swelling of the lining of the sinus cavity or nose. During an infection the sinuses become blocked with fluid causing swelling of the lining of the sinuses. Symptoms: (viral and bacterial infections) Stuffy nose Runny nose Postnasal drip Fever Toothache Headache Tiredness Cough Sore throat Face and head pressure and or pain Common causes: 98% of sinus infections are viral caused by viruses. Risk Factors of Sinusitis Include: Allergies, air pollution, indoor humidity and outdoor temperature changes, andstructural changes in the nose may contribute to sinus pain, pressure and congestion. When to get help? Temperature greater than 100.4 F Symptoms lasting more than 10 days or worsening symptoms greater than 7-10 days. If you do not improve or worsen after a course of antibiotics, you should be re-examined. Diagnosis and Treatment: Your healthcare provider will ask a number of questions about your symptoms and how long they have occurred. If symptoms of sinusitis persist greater than 10 days, it is possible you have a bacterial sinus infection and an antibiotic is prescribed. If it is viral, antibiotics will not help. You may be instructed to take edem-syp-oxwrrsa medications for symptoms. including fever reducers acetaminophen or ibuprofen, nasal saline spray, cough and cold preparations and decongestants as prescribed by the physician, nurse practitioner or physician hygiene assistant. Self-Care and Prevention: Rest Fluids for hydration Good hand washing Humidifier Avoid smoking and exposure to second hand smoke Avoid sick contacts documented in this encounter [facility] 04-28-2024 History of Presen t illness Narrative Telemedicine Visit - Distance Health Virtual Visit Note Patient seen on [employer] Video Visit platform. Location of patient: [place] I have communicated my name and active licensure. The patient's identity and physical location were verified at the time of this visit. Either the patient or their legal outside industrial sales representative has been informed of the risks and benefits of -- and alternatives to -- treatment through a remote evaluation and consents to proceed with the evaluation remotely. History of Present Illness Jos Alex is a 58 year old male who presents for the past 8-10 days with symptoms that are: not improving. Symptoms include: Positive for Cough, Nasal congestion, Face pain/pressure, Headache, Sore throat, and Fatigue, Negative for Fever, Chills/Sweats, SOB, JEFFRIES, Otalgia, Nausea, Emesis, and Diarrhea, Oral intake: Adequate fluid intake Sick contacts: Unknown Recent travel: Denies OTC meds/remedies that patient has tried: Sudafed, cough drops - helpful; History reviewed. No pertinent past medical history. No past surgical history on file. No family history on file. Current Outpatient Medications Medication Sig atenolol (TENORMIN) 25 mg tablet Take 1 tablet by mouth once daily celecoxib (CELEBREX) 200 mg capsule Take 1 capsule by mouth 1 time each day. HYDROcodone-acetaminophen (NORCO) 5-325 mg per tablet Take 1-2 tablets by mouth every evening clonazePAM (KLONOPIN) 1 mg tablet Take 1/2 to 1 tablet by mouth at bedtime HYDROcodone-acetaminophen (NORCO) 5-325 mg per tablet Take 1 to 2 tablets by mouth every evening. HYDROcodone-acetaminophen (NORCO) 5-325 mg per tablet Take 1 to 2 tablets by mouth every evening. Tadalafil (CIALIS) 20 mg tablet Take 1 tablet by mouth once daily as needed for erectile dysfunction atenolol (TENORMIN) 25 mg tablet Take 1 tablet by mouth once daily. Pramipexole 0.75 mg tablet Take 1 tablet by mouth once daily. No current facility-administered medications for this visit. ALLERGIES No Known Allergies Video Exam (Examination performed via Video enabled technology) General appearance: Alert, oriented, pleasant, in NAD: Yes Ill appearing: No Lethargic appearing: No Eyes: Sclera clear: Yes Conjunctiva without erythema: Yes Ears: Tragus / outer ear tenderness by self palpation: No Oropharynx: moist mucus membranes Frontal sinus tenderness by self palpation: Yes Maxillary sinus tenderness by self palpation: Yes Tender cervical adenopathy by self palpation: No Respiratory distress: No Coughing noted: No Audible wheezing noted: No ASSESSMENT/PLAN: 1. Acute non-recurrent sinusitis of other sinus - ICD9: 461.8, ICD10: J01.80 - Will begin treatment with Augmentin 875 mg PO BID for 5 days - Supportive care with plenty of fluids, rest, and analgesia prn - Atrovent nasal spray as directed - Follow up with PCP (or available in-person care) in 1 week if symptoms persist or sooner if symptoms worsen - Red flags discussed for need for in person care - All questions answered Agustina White APRN.MAZIN documented in this encounter [facility] 04-28-2024 Note HNO ID: [id number] Author: AGUSTINA WHITE APRN.MAZIN Service: ? Author Type: Nurse Practitioner Type: Progress Notes Filed: 04/28/2024 10:56 Note Text: Telemedicine Visit - Distance Health Virtual Visit Note Patient seen on [employer] Video Visit platform. Location of patient: [place] I have communicated my name and active licensure. The patient's identity and physical location were verified at the time of this visit. Either the patient or their legal outside industrial sales representative has been informed of the risks and benefits of -- and alternatives to -- treatment through a remote evaluation and consents to proceed with the evaluation remotely. History of Present Illness Jos Alex is a 58 year old male who presents for the past 8-10 days with symptoms that are: not improving. Symptoms include: Positive for Cough, Nasal congestion, Face pain/pressure, Headache, Sore throat, and Fatigue, Negative for Fever, Chills/Sweats, SOB, JEFFRIES, Otalgia, Nausea, Emesis, and Diarrhea, Oral intake: Adequate fluid intake Sick contacts: Unknown Recent travel: Denies OTC meds/remedies that patient has tried: Sudafed, cough drops - helpful; History reviewed. No pertinent past medical history. No past surgical history on file. No family history on file. Current Outpatient Medications Medication Sig atenolol (TENORMIN) 25 mg tablet Take 1 tablet by mouth once daily celecoxib (CELEBREX) 200 mg capsule Take 1 capsule by mouth 1 time each day. HYDROcodone-acetaminophen (NORCO) 5-325 mg per tablet Take 1-2 tablets by mouth every evening clonazePAM (KLONOPIN) 1 mg tablet Take 1/2 to 1 tablet by mouth at bedtime HYDROcodone-acetaminophen (NORCO) 5-325 mg per tablet Take 1 to 2 tablets by mouth every evening. HYDROcodone-acetaminophen (NORCO) 5-325 mg per tablet Take 1 to 2 tablets by mouth every evening. Tadalafil (CIALIS) 20 mg tablet Take 1 tablet by mouth once daily as needed for erectile dysfunction atenolol (TENORMIN) 25 mg tablet Take 1 tablet by mouth once daily. Pramipexole 0.75 mg tablet Take 1 tablet by mouth once daily. No current facility-administered medications for this visit. ALLERGIES No Known Allergies Video Exam (Examination performed via Video enabled technology) General appearance: Alert, oriented, pleasant, in NAD: Yes Ill appearing: No Lethargic appearing: No Eyes: Sclera clear: Yes Conjunctiva without erythema: Yes Ears: Tragus / outer ear tenderness by self palpation: No Oropharynx: moist mucus membranes Frontal sinus tenderness by self palpation: Yes Maxillary sinus tenderness by self palpation: Yes Tender cervical adenopathy by self palpation: No Respiratory distress: No Coughing noted: No Audible wheezing noted: No ASSESSMENT/PLAN: 1. Acute non-recurrent sinusitis of other sinus - ICD9: 461.8, ICD10: J01.80 - Will begin treatment with Augmentin 875 mg PO BID for 5 days - Supportive care with plenty of fluids, rest, and analgesia prn - Atrovent nasal spray as directed - Follow up with PCP (or available in-person care) in 1 week if symptoms persist or sooner if symptoms worsen - Red flags discussed for need for in person care - All questions answered Agustina White APRN.[facility] 12-04-2023 Telephone encounter Note [facility] received prescription(s) for Celebrex from [facility]'s office. Unfortunately, we do not carry or service non-specialty medications. If you would like the medication to be mailed to the patient by a [facility], please consider sending the Rx to [facility] (phone [phone]). Otherwise, please send the Rx to a [facility] outpatient pharmacy or patient's preferred pharmacy. Thanks, Anaid Michelle PharmD Clinical Pharmacist, Oncology [facility] P: ; F: Pool: P [facility] Pool #: [id number] [facility] 12-04-2023 Miscellaneous Notes [facility] received prescription(s) for Celebrex from [facility] office. Unfortunately, we do not carry or service non-specialty medications. If you would like the medication to be mailed to the patient by a [facility], please consider sending the Rx to [facility] (phone [phone]). Otherwise, please send the Rx to a [facility] outpatient pharmacy or patient's preferred pharmacy. Thanks, Anaid Michelle PharmD Clinical Pharmacist, Oncology [facility] P: ; F: Pool: P [facility] Pool #: [id number] documented in this encounter [facility] 11-29-2023 Telephone encounter Note Outside provider: sent via [employer] outside message For patient Jos Alex 1965 [facility] received prescription(s) for celecoxib from [facility]'s office. Unfortunately, we do not carry or service non-specialty medications. If you would like the medication to be mailed to the patient by a [facility], please consider sending the Rx to [facility] (phone [phone]). Otherwise, please send the Rx to a [facility] outpatient pharmacy or patient's preferred pharmacy. Thanks, Lorri Bean PharmD, BCPS, CSP, MSCS Clinical Pharmacist [facility] P: ; F: Pool: P [facility] 11-29-2023 Miscellaneous Notes Outside provider: sent via [employer] outside message For patient Jos Alex 1965 [facility] received prescription(s) for celecoxib from [facility] office. Unfortunately, we do not carry or service non-specialty medications. If you would like the medication to be mailed to the patient by a [facility], please consider sending the Rx to [facility] (phone [phone]). Otherwise, please send the Rx to a [facility] outpatient pharmacy or patient's preferred pharmacy. Thanks, Lorri Bean PharmD, BCPS, CSP, [facility] [place] Clinical Pharmacist [facility] P: ; F: Pool: P [facility] documented in this encounter [facility] 03-27-2023 History of Presen t illness Narrative 7 day [employer] event monitor, ordered - 03/27/23. documented in this encounter [facility] 03-25-2023 Instructions Jeff Childs, ORLY - 03/25/2023 8:22 AM EST Return office visit with Dr. Watson in 2 years Lab work ordered: Additional testing ordered: MCT for 7 days and echo in 2 years Questions: Call Jeff at [phone] documented in this encounter [facility] 03-25-2023 Evaluation + Plan note Associated Problem(s): Mitral valve disease There was mild MR on echo on 01/31/2021. I do not hear significant MR today. He has no new symptoms. Echo in 2 years. [facility] 03-25-2023 History of Presen t illness Narrative [facility]INE CLINIC NOTE Patient Name: Jos Alex MR #: [id number] : 1965 Physicians: Erma Knight MD (Family); Erma Knight MD (Referring) Assessment and Plan: Sleep apnea Jos has severe sleep apnea with documented prolonged apneic periods during sleep. Had been having palpitations, but these are less frequent. He admits to being more compliant with his CPAP this past year. Echo 01/31/2021: Summary 1. Left ventricular systolic function is normal with an ejection fraction by Biplane Method of Discs of 61 %. 2. The mitral valve has thickened leaflets and borderline bileaflet prolapse. 3. There is mild mitral valve regurgitation. 4. There is no pulmonary hypertension, estimated right ventricle systolic pressure is 19 mmHg. Disposition to follow. Hyperlipidemia He is going to have a lipid profile drawn at his PCP this week. We will review and see if there is any role for a primary prevention statin. LDL 114 on 03/12/2022. Repeat lipids at PCP this week. Palpitations Glenroy feels his heart racing at rest. Sometime to 120 bpm. No syncope or presyncope. Will start with a 7 day monitor. Keep atenolol as is for now. Mitral valve disease There was mild MR on echo on 01/31/2021. I do not hear significant MR today. He has no new symptoms. Echo in 2 years. History of Present Illness: Jos Alex is a 57 y.o. male with a past medical significant for sleep apnea, palpitations who presents today on 03/25/2023 in the [facility] MEDICINE CLINIC. The primary purpose of today's visit is routine follow up. When was onset of symptoms? How severe are your symptoms? What makes yours symptoms get better or worse? Give a description of your symptoms? No angina No dyspnea on exertion No TIA No syncope No claudication No leg swelling No palpitations No orthopnea No history of DVT/PE No history of PR History: Past Medical History: Diagnosis Date Depression Diverticulitis Diverticulosis Diverticulitis multiple times Hyperlipidemia 01/31/2021 Mitral valve disease 03/25/2023 Sleep apnea, obstructive Past Surgical History: Procedure Laterality Date APPENDECTOMY CT COLONOSCOPY 12/02/2019 CT COLONOSCOPY FOOT SURGERY Family History Problem Relation Age of Onset Ulcers Mother Hypertension Mother COPD Brother Social History Socioeconomic History Marital status: Tobacco Use Smoking status: Never Smokeless tobacco: Never Vaping Use Vaping Use: Never used Substance and Sexual Activity Alcohol use: Yes Alcohol/week: 0.0 standard drinks of alcohol Comment: Occ/socially Drug use: Never Sexual activity: Yes Partners: Female control/protection: Post-menopausal Allergy Information: I have reviewed the patient's allergies. Patient has no known allergies. Home Medications: Current Outpatient Medications Medication Sig Dispense Refill atenoloL (TENORMIN) 25 MG tablet Take 1 (one) tablet (25 mg total) by mouth daily . pramipexole (MIRAPEX) 0.75 MG tablet Take 1 (one) tablet (0.75 mg total) by mouth nightly . tadalafiL (CIALIS) 20 MG tablet TAKE 1 TABLET BY MOUTH 30 MINUTES PRIOR TO INTERCOURSE FOR 30 DAYS No current facility-administered medications for this visit. Review of Systems All other systems reviewed and are negative. Physical Examination: Vital Signs: BP 112/70 (BP Location: Right arm, Patient Position: Sitting, BP Cuff Size: X-large Adult) Pulse 60 Ht 6' Wt 96.2 kg (212 lb) BMI 28.75 kg/m Physical Exam Constitutional: Oriented to person, place, and time. Appears well-developed. Head: Normocephalic. Cardiovascular: Normal rate. Exam reveals no gallop, no friction rub and no murmur. Pulses - Carotid - Right - Bruit Absent 6 Left - Bruit Absent /6 Femoral - Right - 2/2; Left - 2/2 Popliteal- Right - 2/2; Left - 2/2 DP- Right - 2/2; Left - 2/2 PT- Right - 2/2; Left - 2/2 Extremities & Vascular Evaluation - - Edema - Right None; Left None - Varicose veins Absent Pulmonary/Chest: Effort normal. No respiratory distress. No wheezes or rales noted. Abdominal: Soft. Aorta - non-palpable Musculoskeletal: No evidence of join effusions Neurological: Alert and oriented to person, place, and time. No focal neurological deficits noted. Skin: Skin is warm and dry. Psychiatric: Normal mood and affect. Oliver Watson DO 03/25/2023 8:21 AM Review of Systems Constitutional: Negative for diaphoresis, malaise/fatigue, weight gain and weight loss. HENT: Negative for hearing loss, nosebleeds and tinnitus. Eyes: Negative for blurred vision and visual disturbance. Cardiovascular: Negative for chest pain, claudication, cyanosis, dyspnea on exertion, irregular heartbeat, leg swelling, near-syncope, orthopnea, palpitations, paroxysmal nocturnal dyspnea and syncope. Respiratory: Negative for hemoptysis, shortness of breath and snoring. Endocrine: Negative for cold intolerance and heat intolerance. Hematologic/Lymphatic: Does not bruise/bleed easily. Skin: Negative for flushing, poor wound healing and rash. Musculoskeletal: Negative for back pain, muscle weakness and myalgias. Gastrointestinal: Negative for abdominal pain, change in bowel habit, melena, nausea and vomiting. Genitourinary: Negative for decreased libido and hematuria. Neurological: Negative for loss of balance and numbness. Psychiatric/Behavioral: Negative for memory loss. The patient is not nervous/anxious. documented in this encounter [facility] 03-25-2023 Miscellaneous Notes Associated Problem(s): Mitral valve disease There was mild MR on echo on 01/31/2021. I do not hear significant MR today. He has no new symptoms. Echo in 2 years. Associated Problem(s): Palpitations Glenroy feels his heart racing at rest. Sometime to 120 bpm. No syncope or presyncope. Will start with a 7 day monitor. Keep atenolol as is for now. Associated Problem(s): Hyperlipidemia He is going to have a lipid profile drawn at his PCP this week. We will review and see if there is any role for a primary prevention statin. LDL 114 on 03/12/2022. Repeat lipids at PCP this week. Associated Problem(s): Sleep apnea Jos has severe sleep apnea with documented prolonged apneic periods during sleep. Had been having palpitations, but these are less frequent. He admits to being more compliant with his CPAP this past year. Echo 01/31/2021: Summary 1. Left ventricular systolic function is normal with an ejection fraction by Biplane Method of Discs of 61 %. 2. The mitral valve has thickened leaflets and borderline bileaflet prolapse. 3. There is mild mitral valve regurgitation. 4. There is no pulmonary hypertension, estimated right ventricle systolic pressure is 19 mmHg. Disposition to follow. documented in this encounter [facility] 03-25-2023 Evaluation + Plan note Associated Problem(s): Palpitations Glenroy feels his heart racing at rest. Sometime to 120 bpm. No syncope or presyncope. Will start with a 7 day monitor. Keep atenolol as is for now. [facility] 03-22-2023 Evaluation + Plan note Associated Problem(s): Hyperlipidemia He is going to have a lipid profile drawn at his PCP this week. We will review and see if there is any role for a primary prevention statin. LDL 114 on 03/12/2022. Repeat lipids at PCP this week. [facility] 03-22-2023 Evaluation + Plan note Associated Problem(s): Sleep apnea Jos has severe sleep apnea with documented prolonged apneic periods during sleep. Had been having palpitations, but these are less frequent. He admits to being more compliant with his CPAP this past year. Echo 01/31/2021: Summary 1. Left ventricular systolic function is normal with an ejection fraction by Biplane Method of Discs of 61 %. 2. The mitral valve has thickened leaflets and borderline bileaflet prolapse. 3. There is mild mitral valve regurgitation. 4. There is no pulmonary hypertension, estimated right ventricle systolic pressure is 19 mmHg. Disposition to follow. [facility] 02-08-2021 History of Presen t illness Narrative Meets criteria for discharge to home. VS stable. Denies pain. Patient in PACU, ready for transition to Phase II. documented in this encounter [facility] 02-08-2021 Procedure note Discharge instructions reviewed with pt and his . Printed instructions provided. States picked up pain med prescription 02/07. Patient arrived to PACU recovery bay 24 at 1024 with simple mask on at 6L. Patient remained arousable but sleeping until he woke up calmly at 1110. Patient currently denies pain, N/V and is on room air. Will continue to monitor patient. No further needs at this time. left shoulder arthroscopy with debridement, acromioplasty, distal clavicle resection, rcr, biceps tenodesis (L) OPERATIVE NOTE Date: 02/08/2021 Location: [facility] OR Name: Glenroy Alex, : 1965, Diagnosis Pre-op Diagnosis * Complete rotator cuff tear or rupture of left shoulder, not specified as traumatic [M75.122] Post-op Diagnosis * Complete rotator cuff tear or rupture of left shoulder, not specified as traumatic [M75.122] recurrent tear Procedures Rotator cuff repair with 2 triple loaded anchors including 3 [id number] sutures Revision subacromial decompression and distal clavicle resection Extensive debridement including glenoid, humerus cartilage labrum and debridement of previous sutures Indications: Glenroy Alex is an 55 y.o. male who is having surgery for m75.122. He has had 2 previous surgeries of the shoulder. I previously repaired a very large tear in May. He continued to have pain and did not regain his strength and a repeat MRI revealed a recurrent tear. I recommended that he consider having a revision repair and explained the details of the procedure with pros cons respondents expectation which he expressed understanding and wanted to proceed. Surgeon(s) & Neck Skewer(s) * Marty Gipson MD - Primary Neck Skewer Razia Martínez PA-C who was medically necessary and integral to the procedure including removal of previous sutures preparation of the greater tuberosity passage of sutures tying the sutures placement of arthroscopic anchors Anesthesia: general ASA: II Estimated Blood Loss: 15 mL Drains: * No LDAs found * Specimen: Procedure Details: Glenroy was identified in the preoperative holding area the left shoulder was marked as the operative extremity he had a block placed and given preoperative antibiotics. He is brought to the operating room and positioned lateral left side up. All bony problems were well-padded the shoulder was prepped in standard surgical fashion. Timeout was completed confirming left as the operative extremity and the arthroscope was introduced posteriorly and the above arthro-scopic findings were noted. Extensive debridement was carried out debriding the previous sutures that were intra-articular the cartilage was worn of the humeral head and the glenoid and this was debrided from both the anterior posterior portals. The labral tearing was debrided and then the arthroscopic instruments were placed into the subacromial space where a revision subacromial decompression was completed with a bur from all 3 portals and the distal clavicle was revised to assure 8 mm of clavicle was resected. This was completed with the bur from the anterior posterior portals. The rotator cuff recurrent tear was repaired side to side with 3 [id number] sutures and then the greater tuberosity was lightly decorticated. 2 triple loaded anchors were placed sutures were passed and shuttled again through the rotator cuff tear and tied with [facility] sliding locking knots. Bone vents were placed lateral for marrow expression to assist in healing and the arthroscopic instruments were withdrawn. The portals were closed with 4-0 Monocryl Steri-Strip sterile dressings were applied abduction pillow sling was then applied he was wake from general anesthesia in stable condition. He tolerated the procedure well. Sling indication the abduction pillow sling was medically necessary and integral to protect the arm and shoulder while the blocks and affect the next 20 hours and then for the next 5 weeks for the rotator cuff repair is healing Findings: Moderate glenohumeral joint arthritis with cartilage fraying recurrent labral tearing scar tissue adhesions and loose sutures Complications: None; patient tolerated the procedure well. Disposition: PACU - hemodynamically stable. Condition: stable documented in this encounter [facility] 02-08-2021 History and physical note I have reviewed H&P and have not identified any interval changes. documented in this encounter [facility] 02-07-2021 Hospital course Narrative Pre-Surgery Instructions: Medication Instructions multivitamin tablet Continue to take as ordered/prescribed by your pcp pramipexole (MIRAPEX) 0.75 mg tablet Continue to take as ordered/prescribed by your pcp Additional Instructions: Instructions to prepare for surgery: Increase water intake day PRIOR to surgery. Eat light meals or follow surgeon specific food instructions day PRIOR to surgery. At Midnight, nothing is allowed in your mouth. NO food, water, gum, candy, coffee, mints, tobacco, NOTHING AFTER MIDNIGHT. When you wake up, brush your teeth and use mouthwash. Don't swallow. Take small sip of water with meds that are to be taken DOS. Shower night prior and morning of surgery with antibiotic cleanser OR Dial antibacterial soap (as designated by surgeon). No lotions, creams, powders on your skin. You may wear deodorant (unless surgery is on your shoulder or breast(s)). No shaving surgical site (within 48 hours of surgery). Remove all jewelry, piercings and leave that at home. Leave valuable at home. Wear loose fitting clothes. Bring photo ID, medical insurance card, and copay as needed when you check in for surgery. In addition, bring any of the following: CPAP, living will/ medical POA, glasses, case, hearing aid container, shoulder sling, back brace, walker, cervical collar. Bring your COVID vaccine card, if applicable. Leave walker &/or cane (unless needed prior to surgery) and overnight bag in the car until after your procedure when you are assigned a room. Only 1 designated adult is allowed to go back into Pre-Op area with you. Surgical times are subject to change up until 5:30pm the evening prior to your surgery. Check in at concierge receptionist desk [address] [place] [address]. If Outpatient, these additional instructions apply: An adult must stay with you the whole time you are here and drive you home. An adult must stay with you at home for 24 hours due to Anesthesia. If you have SANDRINE, you are required to stay 3 hours after your surgery before we can discharge you. documented in this encounter [facility] 01-31-2021 History of Presen t illness Narrative [facility] NOTE Patient Name: Jos Alex MR #: [id number] : 1965 Physicians: Erma Knight MD (Family); Erma Knight MD (Referring) Assessment and Plan: Sleep apnea Jos has severe sleep apnea with documented prolonged apneic periods during sleep. In addition, he has left greater than right lower extremity swelling. Had been having palpitations, but these are less frequent. He admits to being non-compliant with is CPAP. I would like an echo to look at right heart pressures as I am concerned he may have pulmonary HTN. Disposition to follow. Hyperlipidemia He is going to have a lipid profile drawn at his PCP this week. We will review and see if there is any role for a primary prevention statin. History of Present Illness: Jos Alex is a 55 y.o. male with a past medical significant for sleep apnea, palpitations, and HLD who presents today on 01/31/2021 in the [facility]INE CLINIC. The primary purpose of today's visit is consultation. When was onset of symptoms? How severe are your symptoms? What makes yours symptoms get better or worse? Give a description of your symptoms? No angina No dyspnea on exertion No TIA No syncope No claudication No leg swelling No palpitations No orthopnea No history of DVT/PE No history of PR History: Past Medical History: Diagnosis Date Depression Diverticulitis Diverticulosis Diverticulitis multiple times Hyperlipidemia 01/31/2021 Sleep apnea, obstructive Past Surgical History: Procedure Laterality Date APPENDECTOMY FOOT SURGERY Family History Problem Relation Age of Onset Ulcers Mother Hypertension Mother COPD Brother Social History Socioeconomic History Marital status: Tobacco Use Smoking status: Never Smoker Smokeless tobacco: Never Used Vaping Use Vaping Use: Never used Substance and Sexual Activity Alcohol use: Yes Alcohol/week: 0.0 standard drinks Comment: Occ/socially Drug use: Never Sexual activity: Yes Partners: Female control/protection: Post-menopausal Allergy Information: I have reviewed the patient's allergies. Patient has no known allergies. Home Medications: Current Outpatient Medications Medication Sig Dispense Refill pramipexole (MIRAPEX) 0.75 MG tablet Take 0.75 mg by mouth nightly . tadalafiL (CIALIS) 20 MG tablet TAKE 1 TABLET BY MOUTH 30 MINUTES PRIOR TO INTERCOURSE FOR 30 DAYS celecoxib (CeleBREX) 200 MG capsule Take 200 mg by mouth daily . venlafaxine (EFFEXOR-XR) 75 MG 24 hr capsule Take 75 mg by mouth daily . No current facility-administered medications for this visit. Review of Systems All other systems reviewed and are negative. Physical Examination: Vital Signs: BP 132/88 (BP Location: Right arm, Patient Position: Sitting) Pulse 90 Ht 6' Wt 95.7 kg (211 lb) BMI 28.62 kg/m Physical Exam Constitutional: Oriented to person, place, and time. Appears well-developed. Head: Normocephalic. Cardiovascular: Normal rate. Exam reveals no gallop, no friction rub and no murmur. Pulses - Carotid - Right - Bruit Absent 6/6 Left - Bruit Absent 6/6 Femoral - Right - 2/2; Left - 2/2 Popliteal- Right - 2/2; Left - 2/2 DP- Right - 2/2; Left - 2/2 PT- Right - 2/2; Left - 2/2 Extremities & Vascular Evaluation - - Edema - Right None; Left 1+ - Varicose veins Absent Pulmonary/Chest: Effort normal. No respiratory distress. No wheezes or rales noted. Abdominal: Soft. Aorta - non-palpable Musculoskeletal: No evidence of join effusions Neurological: Alert and oriented to person, place, and time. No focal neurological deficits noted. Skin: Skin is warm and dry. Psychiatric: Normal mood and affect. Oliver Watson DO 01/31/2021 10:36 AM Review of Systems Constitutional: Negative for diaphoresis, malaise/fatigue, weight gain and weight loss. HENT: Negative for hearing loss, nosebleeds and tinnitus. Eyes: Negative for blurred vision and visual disturbance. Cardiovascular: Positive for irregular heartbeat, leg swelling and palpitations. Negative for chest pain, claudication, cyanosis, dyspnea on exertion, near-syncope, orthopnea, paroxysmal nocturnal dyspnea and syncope. Respiratory: Negative for hemoptysis, shortness of breath and snoring. Endocrine: Negative for cold intolerance and heat intolerance. Hematologic/Lymphatic: Does not bruise/bleed easily. Skin: Negative for flushing, poor wound healing and rash. Musculoskeletal: Negative for back pain, muscle weakness and myalgias. Gastrointestinal: Positive for change in bowel habit. Negative for abdominal pain, melena, nausea and vomiting. Genitourinary: Negative for decreased libido and hematuria. Neurological: Negative for loss of balance and numbness. Psychiatric/Behavioral: Negative for memory loss. The patient is not nervous/anxious. documented in this encounter [facility] 01-31-2021 Miscellaneous Notes Associated Problem(s): Hyperlipidemia He is going to have a lipid profile drawn at his PCP this week. We will review and see if there is any role for a primary prevention statin. Associated Problem(s): Sleep apnea Jos has severe sleep apnea with documented prolonged apneic periods during sleep. In addition, he has left greater than right lower extremity swelling. Had been having palpitations, but these are less frequent. He admits to being non-compliant with is CPAP. I would like an echo to look at right heart pressures as I am concerned he may have pulmonary HTN. Disposition to follow. documented in this encounter [facility] 01-30-2021 Instructions Jeff Childs RN - 01/30/2021 4:47 PM EST Return office visit with Dr. Watson as needed Lab work ordered: Additional testing ordered: echo Medication changes: Questions: Call Jeff at [phone] documented in this encounter [facility] Evaluation note Diagnosis Pulmonary HTN (HCC)- Primary Sleep apnea, unspecified type Hyperlipidemia, unspecified hyperlipidemia type [facility] Diagnosis Mitral valve insufficiency, unspecified etiology- Primary [facility] Diagnosis Chest discomfort- Primary Other chest pain [facility] Diagnosis Sleep apnea, unspecified type- Primary Hyperlipidemia, unspecified hyperlipidemia type Chest discomfort Other chest pain Palpitations Mitral valve disease Other and unspecified mitral valve diseases [facility] Diagnosis Mitral valve disease- Primary Other and unspecified mitral valve diseases [facility] Diagnosis Acute non-recurrent sinusitis of other sinus- Primary documented in this encounter [facility] for visit Narrative* Auth/Cert Specialty Diagnoses / Procedures Referred By Klaudia t Referred To Contact Diagnoses Complete rotator cuff tear or rupture of left shoulder, not specified as traumatic m75.122 Procedures NM ARTHROSCOPY SHOULDER SURGICAL WITH ROTATOR CUFF REPAIR NM SURGICAL ARTHROSCOPY SHOULDER XTNSV DBRDMT 3+ NM ARTHROSCOPY SHOULDER SURG DECOMPR SUBACROMIAL SPACE W/PART ACROMIOPLASTY W/CORACOACROMIAL LIG RLS WHEN PRFRMD (LST SPRTLY IN ADD TO CDE PRM PRC) NM ARTHROSCOPY SHOULDER SURGICAL DISTAL CLAVICULECTOMY INCLUDING DISTAL ARTICULAR SURFACE (ANNETTE PROCEDURE) NM ARTHROSCOPY SHOULDER SURGICAL WITH ROTATOR CUFF REPAIR NM ARTHROSCOPY SHOULDER SURGICAL BICEPS TENODESIS left shoulder arthroscopy with debridement, acromioplasty, distal clavicle resection, rcr, biceps tenodesis Marty Gipson MD [address] [place] [address] Frank[address] [place] [address] Referral ID Status Reason Start Date Expiration Date Visits Re quested Visits Authorized [id number] 1 [facility] * Patient Instructions* Amina Lange DO - 08/30/2019 6:41 PM EDT You have been accepted to the short stay unit at [place]. The address is [address] [place] [address] [facility] in [place]. They will be able to do lab work and imaging if they so choose which we cannot do here at urgent care. Discussed plan with patient. Answered patient's questions. Patient expressed understanding and agreement with plan. Your discharge note was prepared with the use of electronic dictation. It may contain misspellings or wrong words that were not corrected on proofreading. If anything is unclear or you have questionsabout the discharge instructions, please call the clinic. documented in this encounter* Patient Instructions* Maria D Rome, MAZIN - 04/24/2020 6:55 PM EST Learning About RICE (Rest, Ice, Compression, and Elevation) What is RICE? RICE is a way to care for an injury. RICE helps relieve pain and swelling. It may also help with healing and flexibility. RICE stands for: R est and protect the injured or sore area. I ce or a cold pack used as soon as possible. C ompression, or wrapping the injured or sore area with an elastic bandage. E levation (propping up) the injured or sore area. How do you do RICE? You can use RICE for home treatment when you have general aches and pains or after an injury or surgery. Rest Do not put weight on the injury for at least 24 to 48 hours. Use crutches for a badly sprained knee or ankle. Support a sprained wrist, elbow, or shoulder with a sling. Ice Put ice or a cold pack on the injury right away to reduce pain and swelling. Frozen vegetables willalso work as an ice pack. Put a thin cloth between the ice or cold pack and your skin. The cloth protects the injured area from getting too cold. Use ice for 10 to 15 minutes at a time for the first 48 to 72 hours. Compression Use compression for sprains, strains, and surgeries of the arms and legs. Wrap the injured area with an elastic bandage or compression sleeve to reduce swelling. Don't wrap it too tightly. If the area below it feels numb, tingles, or feels cool, loosen the wrap. Elevation Use elevation for areas of the body that can be propped up, such as arms and legs. Prop up the injured area on pillows whenever you use ice. Keep it propped up anytime you sit or liedown. Try to keep the injured area at or above the level of your heart. This will help reduce swelling and bruising. Where can you learn more? Log into your personal health record on https://[employer] and enter I463 in the Education box to learn more about Learning About RICE (Rest, Ice, Compression, and Elevation). Current as of: May 03, 2019 Content Version: 12.7 [employer]. Care instructions adapted under license by your healthcare professional. If you have questions about a medical condition or this instruction, always ask your healthcare professional. [employer] disclaims any warranty or liability for your use of this information. Shoulder Pain: Care Instructions Your Care Instructions You can hurt your shoulder by using it too much during an activity, such as fishing or baseball. Itcan also happen as part of the everyday wear and tear of getting older. Shoulder injuries can be slow to heal, but your shoulder should get better with time. Your doctor may recommend a sling to rest your shoulder. If you have injured your shoulder, you mayneed testing and treatment. Follow-up care is a galeana part of your treatment and safety. Be sure to make and go to all appointments, and call your doctor if you are having problems. It's also a good idea to know your test resultsand keep a list of the medicines you take. How can you care for yourself at home? Take pain medicines exactly as directed. ? If the doctor gave you a prescription medicine for pain, take it as prescribed. ? If you are not taking a prescription pain medicine, ask your doctor if you can take an [id number]-[id number] medicine. ? Do not take two or more pain medicines at the same time unless the doctor told you to. Many pain medicines contain acetaminophen, which is Tylenol. Too much acetaminophen (Tylenol) can be harmful. If your doctor recommends that you wear a sling, use it as directed. Do not take it off before yourdoctor tells you to. Put ice or a cold pack on the sore area for 10 to 20 minutes at a time. Put a thin cloth between the ice and your skin. If there is no swelling, you can put moist heat, a heating pad, or a warm cloth on your shoulder. Some doctors suggest alternating between hot and cold. Rest your shoulder for a few days. If your doctor recommends it, you can then begin gentle exerciseof the shoulder, but do not lift anything heavy. When should you call for help? Call 911 anytime you think you may need emergency care. For example, call if: You have chest pain or pressure. This may occur with: ? Sweating. ? Shortness of breath. ? Nausea or vomiting. ? Pain that spreads from the chest to the neck, jaw, or one or both shoulders or arms. ? Dizziness or lightheadedness. ? A fast or uneven pulse. After calling 911, chew 1 adult-strength aspirin. Wait for an ambulance. Do not try to drive yourself. Your arm or hand is cool or pale or changes color. Call your doctor now or seek immediate medical care if: You have signs of infection, such as: ? Increased pain, swelling, warmth, or redness in your shoulder. ? Red streaks leading from a place on your shoulder. ? Pus draining from an area of your shoulder. ? Swollen lymph nodes in your neck, armpits, or groin. ? A fever. Watch closely for changes in your health, and be sure to contact your doctor if: You cannot use your shoulder. Your shoulder does not get better as expected. Where can you learn more? Log into your personal health record on https://[employer] and enter H996 in the Education box to learn more about Shoulder Pain: Care Instructions. Current as of: May 03, 2019 Content Version: 12.7 [employer]. Care instructions adapted under license by your healthcare professional. If you have questions about a medical condition or this instruction, always ask your healthcare professional. [employer] disclaims any warranty or liability for your use of this information. Learning About RICE (Rest, Ice, Compression, and Elevation) What is RICE? RICE is a way to care for an injury. RICE helps relieve pain and swelling. It may also help with healing and flexibility. RICE stands for: R est and protect the injured or sore area. I ce or a cold pack used as soon as possible. C ompression, or wrapping the injured or sore area with an elastic bandage. E levation (propping up) the injured or sore area. How do you do RICE? You can use RICE for home treatment when you have general aches and pains or after an injury or surgery. Rest Do not put weight on the injury for at least 24 to 48 hours. Use crutches for a badly sprained knee or ankle. Support a sprained wrist, elbow, or shoulder with a sling. Ice Put ice or a cold pack on the injury right away to reduce pain and swelling. Frozen vegetables willalso work as an ice pack. Put a thin cloth between the ice or cold pack and your skin. The cloth protects the injured area from getting too cold. Use ice for 10 to 15 minutes at a time for the first 48 to 72 hours. Compression Use compression for sprains, strains, and surgeries of the arms and legs. Wrap the injured area with an elastic bandage or compression sleeve to reduce swelling. Don't wrap it too tightly. If the area below it feels numb, tingles, or feels cool, loosen the wrap. Elevation Use elevation for areas of the body that can be propped up, such as arms and legs. Prop up the injured area on pillows whenever you use ice. Keep it propped up anytime you sit or liedown. Try to keep the injured area at or above the level of your heart. This will help reduce swelling and bruising. Where can you learn more? Log into your personal health record on https://[employer] and enter I463 in the Education box to learn more about Learning About RICE (Rest, Ice, Compression, and Elevation). Current as of: May 03, 2019 Content Version: 12.7 [employer]. Care instructions adapted under license by your healthcare professional. If you have questions about a medical condition or this instruction, always ask your healthcare professional. [employer] disclaims any warranty or liability for your use of this information. Shoulder Pain: Care Instructions Your Care Instructions You can hurt your shoulder by using it too much during an activity, such as fishing or baseball. Itcan also happen as part of the everyday wear and tear of getting older. Shoulder injuries can be slow to heal, but your shoulder should get better with time. Your doctor may recommend a sling to rest your shoulder. If you have injured your shoulder, you mayneed testing and treatment. Follow-up care is a galeana part of your treatment and safety. Be sure to make and go to all appointments, and call your doctor if you are having problems. It's also a good idea to know your test resultsand keep a list of the medicines you take. How can you care for yourself at home? Take pain medicines exactly as directed. ? If the doctor gave you a prescription medicine for pain, take it as prescribed. ? If you are not taking a prescription pain medicine, ask your doctor if you can take an azxv-xeo-sfwqvrz medicine. ? Do not take two or more pain medicines at the same time unless the doctor told you to. Many pain medicines contain acetaminophen, which is Tylenol. Too much acetaminophen (Tylenol) can be harmful. If your doctor recommends that you wear a sling, use it as directed. Do not take it off before yourdoctor tells you to. Put ice or a cold pack on the sore area for 10 to 20 minutes at a time. Put a thin cloth between the ice and your skin. If there is no swelling, you can put moist heat, a heating pad, or a warm cloth on your shoulder. Some doctors suggest alternating between hot and cold. Rest your shoulder for a few days. If your doctor recommends it, you can then begin gentle exerciseof the shoulder, but do not lift anything heavy. When should you call for help? Call 911 anytime you think you may need emergency care. For example, call if: You have chest pain or pressure. This may occur with: ? Sweating. ? Shortness of breath. ? Nausea or vomiting. ? Pain that spreads from the chest to the neck, jaw, or one or both shoulders or arms. ? Dizziness or lightheadedness. ? A fast or uneven pulse. After calling 911, chew 1 adult-strength aspirin. Wait for an ambulance. Do not try to drive yourself. Your arm or hand is cool or pale or changes color. Call your doctor now or seek immediate medical care if: You have signs of infection, such as: ? Increased pain, swelling, warmth, or redness in your shoulder. ? Red streaks leading from a place on your shoulder. ? Pus draining from an area of your shoulder. ? Swollen lymph nodes in your neck, armpits, or groin. ? A fever. Watch closely for changes in your health, and be sure to contact your doctor if: You cannot use your shoulder. Your shoulder does not get better as expected. Where can you learn more? Log into your personal health record on https://[employer] and enter H996 in the Education box to learn more about Shoulder Pain: Care Instructions. Current as of: May 03, 2019 Content Version: 12.7 [employer]. Care instructions adapted under license by your healthcare professional. If you have questions about a medical condition or this instruction, always ask your healthcare professional. [employer] disclaims any warranty or liability for your use of this information. documented in this encounter* Patient Instructions* Maria D Rome CNP - 04/24/2020 6:55 PM EST Learning About RICE (Rest, Ice, Compression, and Elevation) What is RICE? RICE is a way to care for an injury. RICE helps relieve pain and swelling. It may also help with healing and flexibility. RICE stands for: R est and protect the injured or sore area. I ce or a cold pack used as soon as possible. C ompression, or wrapping the injured or sore area with an elastic bandage. E levation (propping up) the injured or sore area. How do you do RICE? You can use RICE for home treatment when you have general aches and pains or after an injury or surgery. Rest Do not put weight on the injury for at least 24 to 48 hours. Use crutches for a badly sprained knee or ankle. Support a sprained wrist, elbow, or shoulder with a sling. Ice Put ice or a cold pack on the injury right away to reduce pain and swelling. Frozen vegetables willalso work as an ice pack. Put a thin cloth between the ice or cold pack and your skin. The cloth protects the injured area from getting too cold. Use ice for 10 to 15 minutes at a time for the first 48 to 72 hours. Compression Use compression for sprains, strains, and surgeries of the arms and legs. Wrap the injured area with an elastic bandage or compression sleeve to reduce swelling. Don't wrap it too tightly. If the area below it feels numb, tingles, or feels cool, loosen the wrap. Elevation Use elevation for areas of the body that can be propped up, such as arms and legs. Prop up the injured area on pillows whenever you use ice. Keep it propped up anytime you sit or liedown. Try to keep the injured area at or above the level of your heart. This will help reduce swelling and bruising. Where can you learn more? Log into your personal health record on https://[employer] and enter I463 in the Education box to learn more about Learning About RICE (Rest, Ice, Compression, and Elevation). Current as of: May 03, 2019 Content Version: 12.7 5461-3321 [employer]. Care instructions adapted under license by your healthcare professional. If you have questions about a medical condition or this instruction, always ask your healthcare professional. [employer] disclaims any warranty or liability for your use of this information. Shoulder Pain: Care Instructions Your Care Instructions You can hurt your shoulder by using it too much during an activity, such as fishing or baseball. Itcan also happen as part of the everyday wear and tear of getting older. Shoulder injuries can be slow to heal, but your shoulder should get better with time. Your doctor may recommend a sling to rest your shoulder. If you have injured your shoulder, you mayneed testing and treatment. Follow-up care is a galeana part of your treatment and safety. Be sure to make and go to all appointments, and call your doctor if you are having problems. It's also a good idea to know your test resultsand keep a list of the medicines you take. How can you care for yourself at home? Take pain medicines exactly as directed. ? If the doctor gave you a prescription medicine for pain, take it as prescribed. ? If you are not taking a prescription pain medicine, ask your doctor if you can take an vsbl-rke-zemdcwz medicine. ? Do not take two or more pain medicines at the same time unless the doctor told you to. Many pain medicines contain acetaminophen, which is Tylenol. Too much acetaminophen (Tylenol) can be harmful. If your doctor recommends that you wear a sling, use it as directed. Do not take it off before yourdoctor tells you to. Put ice or a cold pack on the sore area for 10 to 20 minutes at a time. Put a thin cloth between the ice and your skin. If there is no swelling, you can put moist heat, a heating pad, or a warm cloth on your shoulder. Some doctors suggest alternating between hot and cold. Rest your shoulder for a few days. If your doctor recommends it, you can then begin gentle exerciseof the shoulder, but do not lift anything heavy. When should you call for help? Call 911 anytime you think you may need emergency care. For example, call if: You have chest pain or pressure. This may occur with: ? Sweating. ? Shortness of breath. ? Nausea or vomiting. ? Pain that spreads from the chest to the neck, jaw, or one or both shoulders or arms. ? Dizziness or lightheadedness. ? A fast or uneven pulse. After calling 911, chew 1 adult-strength aspirin. Wait for an ambulance. Do not try to drive yourself. Your arm or hand is cool or pale or changes color. Call your doctor now or seek immediate medical care if: You have signs of infection, such as: ? Increased pain, swelling, warmth, or redness in your shoulder. ? Red streaks leading from a place on your shoulder. ? Pus draining from an area of your shoulder. ? Swollen lymph nodes in your neck, armpits, or groin. ? A fever. Watch closely for changes in your health, and be sure to contact your doctor if: You cannot use your shoulder. Your shoulder does not get better as expected. Where can you learn more? Log into your personal health record on https://[employer] and enter H996 in the Education box to learn more about Shoulder Pain: Care Instructions. Current as of: May 03, 2019 Content Version: 12.7 [employer]. Care instructions adapted under license by your healthcare professional. If you have questions about a medical condition or this instruction, always ask your healthcare professional. [employer] disclaims any warranty or liability for your use of this information. Learning About RICE (Rest, Ice, Compression, and Elevation) What is RICE? RICE is a way to care for an injury. RICE helps relieve pain and swelling. It may also help with healing and flexibility. RICE stands for: R est and protect the injured or sore area. I ce or a cold pack used as soon as possible. C ompression, or wrapping the injured or sore area with an elastic bandage. E levation (propping up) the injured or sore area. How do you do RICE? You can use RICE for home treatment when you have general aches and pains or after an injury or surgery. Rest Do not put weight on the injury for at least 24 to 48 hours. Use crutches for a badly sprained knee or ankle. Support a sprained wrist, elbow, or shoulder with a sling. Ice Put ice or a cold pack on the injury right away to reduce pain and swelling. Frozen vegetables willalso work as an ice pack. Put a thin cloth between the ice or cold pack and your skin. The cloth protects the injured area from getting too cold. Use ice for 10 to 15 minutes at a time for the first 48 to 72 hours. Compression Use compression for sprains, strains, and surgeries of the arms and legs. Wrap the injured area with an elastic bandage or compression sleeve to reduce swelling. Don't wrap it too tightly. If the area below it feels numb, tingles, or feels cool, loosen the wrap. Elevation Use elevation for areas of the body that can be propped up, such as arms and legs. Prop up the injured area on pillows whenever you use ice. Keep it propped up anytime you sit or liedown. Try to keep the injured area at or above the level of your heart. This will help reduce swelling and bruising. Where can you learn more? Log into your personal health record on https://[employer] and enter I463 in the Education box to learn more about Learning About RICE (Rest, Ice, Compression, and Elevation). Current as of: May 03, 2019 Content Version: 12.7 9782-3107 [employer]. Care instructions adapted under license by your healthcare professional. If you have questions about a medical condition or this instruction, always ask your healthcare professional. [employer] disclaims any warranty or liability for your use of this information. Shoulder Pain: Care Instructions Your Care Instructions You can hurt your shoulder by using it too much during an activity, such as fishing or baseball. Itcan also happen as part of the everyday wear and tear of getting older. Shoulder injuries can be slow to heal, but your shoulder should get better with time. Your doctor may recommend a sling to rest your shoulder. If you have injured your shoulder, you mayneed testing and treatment. Follow-up care is a galeana part of your treatment and safety. Be sure to make and go to all appointments, and call your doctor if you are having problems. It's also a good idea to know your test resultsand keep a list of the medicines you take. How can you care for yourself at home? Take pain medicines exactly as directed. ? If the doctor gave you a prescription medicine for pain, take it as prescribed. ? If you are not taking a prescription pain medicine, ask your doctor if you can take an duhm-hbx-fjpqjye medicine. ? Do not take two or more pain medicines at the same time unless the doctor told you to. Many pain medicines contain acetaminophen, which is Tylenol. Too much acetaminophen (Tylenol) can be harmful. If your doctor recommends that you wear a sling, use it as directed. Do not take it off before yourdoctor tells you to. Put ice or a cold pack on the sore area for 10 to 20 minutes at a time. Put a thin cloth between the ice and your skin. If there is no swelling, you can put moist heat, a heating pad, or a warm cloth on your shoulder. Some doctors suggest alternating between hot and cold. Rest your shoulder for a few days. If your doctor recommends it, you can then begin gentle exerciseof the shoulder, but do not lift anything heavy. When should you call for help? Call 911 anytime you think you may need emergency care. For example, call if: You have chest pain or pressure. This may occur with: ? Sweating. ? Shortness of breath. ? Nausea or vomiting. ? Pain that spreads from the chest to the neck, jaw, or one or both shoulders or arms. ? Dizziness or lightheadedness. ? A fast or uneven pulse. After calling 911, chew 1 adult-strength aspirin. Wait for an ambulance. Do not try to drive yourself. Your arm or hand is cool or pale or changes color. Call your doctor now or seek immediate medical care if: You have signs of infection, such as: ? Increased pain, swelling, warmth, or redness in your shoulder. ? Red streaks leading from a place on your shoulder. ? Pus draining from an area of your shoulder. ? Swollen lymph nodes in your neck, armpits, or groin. ? A fever. Watch closely for changes in your health, and be sure to contact your doctor if: You cannot use your shoulder. Your shoulder does not get better as expected. Where can you learn more? Log into your personal health record on https://[employer] and enter H996 in the Education box to learn more about Shoulder Pain: Care Instructions. Current as of: May 03, 2019 Content Version: 12.7 [employer]. Care instructions adapted under license by your healthcare professional. If you have questions about a medical condition or this instruction, always ask your healthcare professional. [employer] disclaims any warranty or liability for your use of this information. documented in this encounter History of Present Illness * Amina LanegDO - 08/30/2019 6:39 PM EDT [facility] Brief Evaluation Form Patient Transfer to ED without Admit to Urgent Care Date: 08/30/19 Time: 6:49 PM Name: Jos Alex : 1965 [address] [place] [address] (home) Jos Alex presented [facility] with Abdominal Pain (LLQ, x 3 days, pain gettingsharper) . BP 117/85 (BP Location: Right arm, Patient Position: Sitting, BP Cuff Size: X- large Adult) Pulse 95 Temp 98 F (36.7 C) (Tympanic) Resp 17 Ht 6' Wt 88.9 kg (196 lb) SpO2 97% BMI 26.58 kg/m Allergies: no known allergies. Jos Alex has a current medication list which includes the following prescription(s): celecoxib, pramipexole, and venlafaxine. Jos Alex has a past medical history of Depression and Diverticulitis. Exam: Patient is complaining of left lower quadrant pain for about 3 days but in the pain is getting a little bit sharper. He describes it as a dull pain around 2 or 3 but occasionally jumps up to 6 or 7 but only for seconds. He has a history of diverticulitis but is never had to have surgery for it. He is afraid that this is possibly another flare and was hoping to get antibiotics. He denies anyfevers. He did start fasting 2 days ago as sometimes that helps. No nausea vomiting or diarrhea. Noblood in the stool. No COVID symptoms. On exam he is tender to percussion and palpation in the leftlower quadrant. The pain is worse with direct palpation not rebound. There is mild guarding, hypoactive bowel sounds, abd soft. Jos Alex was seen by Amina Lange DO and is being transferred to [facility] Jos Alex being transported via [employer] ([employer]). The primary encounter diagnosis was Left lower quadrant abdominal pain. A diagnosis of History of diverticulitis was also pertinent to this visit. Discussion Regarding Transfer: Short stay unit at [facility] accepted the patient. Concern for a diverticulitis flare but other abdominal pathologies possible including SBO, pancreatitis or other intra-abdominal pathology. Vitals stable, afebrile. Transfer Center Called [facility] ED Called Additional Comments: Amina Lange DO 08/30/19 *Transfer location subject to change based on patient condition during transport at EMS discretion. documented in this encounter* Jony Patricio MD - 09/02/2019 8:28 AM EDT SHORT STAY UNIT PROGRESS NOTE Assessment and Plan Jos Alex is a 54 y.o. male patient of Erma Knight MD with history of Depression and Diverticulitis presented with left lower quadrant abdominal pain and found to have diverticulitis. Recurrent acute sigmoid diverticulitis This will be 4 or 5th recurrence Colonoscopy 10 years ago normal per him Will continue IV fluids and bolus PRN based on oral intake Continue Cipro and Flagyl Pain control with PRN IV Toradol and Oxycodone On full liquids, bu not drinking much WBC normalized, afebrile, exam improving, and having bowel movements and so seems to be recovering,just slowly. Discussed with him that he should discuss referral to a surgeon with his PCP given his multiple recurrences. Low Blood Pressure, improving Asymptomatic Should improve as his infection resolves Repeat labs ordered for AM Fluid resuscitation as above Depression Stable mood Taking Effexor at home Disposition DC when able to keep himself hydrated, hope for 7/2 or 7/3 Subjective Pain improving Loose stool this morning, without blood Urinating well Slight nausea with liquids yesterday Review of Systems All systems have been reviewed and are negative except as noted in HPI or below Objective BP 109/74 (BP Location: Right arm, Patient Position: Lying) Pulse 62 Temp 98.1 F (36.7 C) (Oral) Resp 16 SpO2 98% Physical Examination General Appearance: alert, well appearing, and in no acute distress. HEENT: Head- normocephalic; Eyes- , EOMI; Cardiovascular: regular rate and rhythm; normal S1, S2; no murmurs, rubs, clicks or gallops; no peripheral edema. Respiratory: lungs clear to auscultation; without wheezes, rales or rhonchi Abdomen: soft, non-distended; positive bowel sounds, LLQ tender (improving), no rebound tenderness Neurological: alert, oriented x 3, normal speech; no focal findings or movement disorder noted Musculoskeletal: no significant deformity or tenderness to palpation Skin: normal coloration, texture and turgor; no lesions or eruptions Psych: normal mood and affect Results/Medications Reviewed 09/02/19 8:28 AM: Laboratory, Microbiology, Radiology, Medications and Transcriptions * Liliya Frost RN - 09/02/2019 7:57 AM EDT Asked pt if he wanted any pain meds since he rates his pain score at 5; pt declines pain meds and states the pain is tolerable. Pt aware to use call light to call this RN whenever he would like pain meds. * Jony Patricio MD - 09/01/2019 9:04 AM EDT SHORT STAY UNIT PROGRESS NOTE Assessment and Plan Jos Alex is a 54 y.o. male patient of Erma Knight MD with history of Depression and Diverticulitis presented with left lower quadrant abdominal pain and found to have diverticulitis. Recurrent acute sigmoid diverticulitis This will be 4 or 5th recurrence Colonoscopy 10 years ago normal per him Will continue IV fluids and bolus PRN based on oral intake Continue Cipro and Flagyl Pain control with PRN IV Toradol and Oxycodone Still not tolerating full liquids Discussed with him that he should discuss referral to a surgeon with his PCP given his multiple recurrences Low Blood Pressure Asymptomatic Should improve as his infection resolves Repeat labs ordered for AM Fluid resuscitation as above Depression Stable mood Taking Effexor at home Disposition DC when able to eat, likely 7/2 at soonest Subjective Still with LLQ abd pain. Nausea with liquids. Denies lightheadedness, chest pain, dyspnea. No bowelmovement. Urine is dark. Review of Systems All systems have been reviewed and are negative except as noted in HPI or below Objective BP 97/61 (BP Location: Right arm, Patient Position: Lying) Pulse 82 Temp 98.3 F (36.8 C) (Oral) Resp 16 SpO2 96% Physical Examination General Appearance: alert, well appearing, and in no acute distress. HEENT: Head- normocephalic; Eyes- , EOMI; Cardiovascular: regular rate and rhythm; normal S1, S2; no murmurs, rubs, clicks or gallops; no peripheral edema. Respiratory: lungs clear to auscultation; without wheezes, rales or rhonchi Abdomen: soft, non-distended; positive bowel sounds, LLQ tender, no rebound tenderness Neurological: alert, oriented x 3, normal speech; no focal findings or movement disorder noted Musculoskeletal: no significant deformity or tenderness to palpation Skin: normal coloration, texture and turgor; no lesions or eruptions Psych: normal mood and affect Results/Medications Reviewed 09/01/19 9:04 AM: Laboratory, Microbiology, Radiology, Medications and Transcriptions * Liliya Frost RN - 08/31/2019 12:38 PM EDT AVS reviewed with pt, pt able to verbalize education, no questions at this time. All pt belongings gathered and taken with pt. Pt able to ambulate to car without nursing assistance documented in this encounter* Maria D Rome CNP - 04/24/2020 6:56 PM EST Patient Name: [facility] Location: Jos Alex [address] [place] [address] Date Of : Date Of Visit: 1965 04/24/2020 MRN# Provider: [id number] Maria D Rome CNP Chief Complaint Patient presents with Fall Fell on L shoulder about 2 days ago. Limited range of motion. Assessment & Plan 1. Acute pain of left shoulder XR Shoulder Left 2+ Views (Standard) Ambulatory referral to Orthopedic Surgery HYDROcodone-acetaminophen (NORCO) 5-325 mg per tablet 2. Fall, initial encounter HYDROcodone-acetaminophen (NORCO) 5-325 mg per tablet No follow-ups on file. Medical Decision Making This is a 54 year old male patient that presents today c/o of having left shoulder pain after falling on ice 2 days ago. Denies hitting head or any LOC, states not having a headache, neck or back pain. Denies any n/v. Denies any n/t. Denies any weakness. Denies any cp or abdominal pain. States has had a rotator cuff repair on the right shoulder and this feels similar. States is right hand dominant. States pain is worse with movement. Pt having tenderness along the anterior shoulder, sensation intact. Strength is 5/5 in upper ext. Radial pulses noted. Able to abduct left arm 90 degress no higher. Denies any elbow or wrist pain. States has been icing shoulder -continue using RICE -pt denied any need for a sling -discussed will be given a prescription for norco.aware no driving or operating any heavy machinerywhile taking norco. -discussed following up with PCP for further evaluation. -discussed returning if any changes, worsening symptoms, or any other concerns. Additional Clinical Comments Discussed over the counter medications for symptomatic management and side effects of medications. Recommended taking all medications with food and to stop medications if they develop any signs of anallergic reaction. Educated patient and/or guardian about signs and symptoms that would warrant further immediate evaluation. Recommended that they should return to urgent care, make an appointment with their family physician, or go to the emergency room if symptoms persist or get acutely worse. Recommended follow upwithin the next week with their PCP or to get established with a PCP soon in order to follow up appropriately. Influenza Immunization [facility] COVID-19 Mask Status: Does the patient have classic COVID-19 symptoms? No, the patient does not have COVID-19 symptoms, the patient WAS wearing a mask during the visit and I (the provider) WAS wearing a mask during the visit. Subjective 54 y.o. male presents with Fall (Fell on L shoulder about 2 days ago. Limited range of motion. ) Fall The accident occurred 2 days ago. The fall occurred while standing. Impact surface: onto the ice. The point of impact was the left shoulder. The pain is present in the left shoulder. The pain is mild. The symptoms are aggravated by extension and movement. Pertinent negatives include no abdominal pain, fever, headaches, hematuria, nausea, numbness or vomiting. Treatments tried: celebrex. The treatment provided mild relief. Shoulder Injury Pertinent negatives include no numbness. Review Of Systems Review of Systems Constitutional: Negative for appetite change, chills, fatigue and fever. HENT: Negative. Negative for sore throat and trouble swallowing. Eyes: Negative for photophobia and visual disturbance. Respiratory: Negative for cough, chest tightness and shortness of breath. Gastrointestinal: Negative for abdominal pain, blood in stool, constipation, diarrhea, nausea and vomiting. Endocrine: Negative. Genitourinary: Negative for flank pain, frequency, hematuria, testicular pain and urgency. Musculoskeletal: Negative for neck pain and neck stiffness. States having left shoulder pain s/p fall two days ago Skin: Negative for rash. Allergic/Immunologic: Negative for immunocompromised state. Neurological: Negative for dizziness, weakness, light-headedness, numbness and headaches. Psychiatric/Behavioral: Negative. All other systems reviewed and are negative. Medical History Past Medical History: Diagnosis Date Depression Diverticulitis Diverticulosis Diverticulitis multiple times Sleep apnea, obstructive Past Surgical History: Procedure Laterality Date APPENDECTOMY FOOT SURGERY Patient Active Problem List Diagnosis Acute diverticulitis Social History Social History Tobacco Use Smoking status: Never Smoker Smokeless tobacco: Never Used Substance Use Topics Alcohol use: Yes Alcohol/week: 0.0 standard drinks Comment: Occ/socially Drug use: Never Family History Family History Problem Relation Age of Onset Ulcers Mother Hypertension Mother COPD Brother Objective Physical Exam BP 111/75 (BP Location: Right arm, Patient Position: Sitting, BP Cuff Size: Adult) Pulse 84 Temp 97.4 F (36.3 C) (Tympanic) Resp 16 Ht 6' Wt 95.7 kg (211 lb) SpO2 97% BMI 28.62 kg/m Vision/Hearing Exam:No exam data present Physical Exam Vitals signs and nursing note reviewed. Constitutional: General: He is not in acute distress. Appearance: He is well-developed. He is not diaphoretic. HENT: Head: Normocephalic and atraumatic. Right Ear: Hearing, tympanic membrane, ear canal and external ear normal. Left Ear: Hearing, tympanic membrane, ear canal and external ear normal. Nose: Nose normal. Mouth/Throat: Pharynx: No oropharyngeal exudate. Eyes: General: Right eye: No discharge. Left eye: No discharge. Conjunctiva/sclera: Conjunctivae normal. Neck: Musculoskeletal: Normal range of motion and neck supple. Cardiovascular: Rate and Rhythm: Normal rate and regular rhythm. Heart sounds: Normal heart sounds. No murmur. No friction rub. No gallop. Pulmonary: Effort: Pulmonary effort is normal. No respiratory distress. Breath sounds: Normal breath sounds. No wheezing or rales. Abdominal: General: Bowel sounds are normal. There is no distension. Palpations: Abdomen is soft. Musculoskeletal: General: Tenderness and signs of injury present. No swelling or deformity. Comments: Decreased rom to left shoulder. Pt able to pronate and supinate without difficulty. Denies any n/t. Denies any weakness. Skin: General: Skin is warm. Findings: No rash. Neurological: Mental Status: He is alert and oriented to person, place, and time. Psychiatric: Behavior: Behavior normal. Thought Content: Thought content normal. Judgment: Judgment normal. Procedure Notes Procedures Results X-ray left shoulder Orders Placed This Visit Orders Placed This Encounter Procedures XR Shoulder Left 2+ Views (Standard) Ambulatory referral to Orthopedic Surgery Medication List At End Of Visit Current Outpatient Medications Medication Sig Dispense Refill celecoxib (CeleBREX) 200 MG capsule Take 200 mg by mouth daily . pramipexole (MIRAPEX) 0.75 MG tablet Take 0.75 mg by mouth nightly . venlafaxine (EFFEXOR-XR) 75 MG 24 hr capsule Take 75 mg by mouth daily . HYDROcodone-acetaminophen (NORCO) 5-325 mg per tablet Take 1 (one) tablet by mouth every 6 (six) hours as needed for pain . 10 tablet 0 No current facility-administered medications for this visit. Patient Instructions Learning About RICE (Rest, Ice, Compression, and Elevation) What is RICE? RICE is a way to care for an injury. RICE helps relieve pain and swelling. It may also help with healing and flexibility. RICE stands for: R est and protect the injured or sore area. I ce or a cold pack used as soon as possible. C ompression, or wrapping the injured or sore area with an elastic bandage. E levation (propping up) the injured or sore area. How do you do RICE? You can use RICE for home treatment when you have general aches and pains or after an injury or surgery. Rest Do not put weight on the injury for at least 24 to 48 hours. Use crutches for a badly sprained knee or ankle. Support a sprained wrist, elbow, or shoulder with a sling. Ice Put ice or a cold pack on the injury right away to reduce pain and swelling. Frozen vegetables willalso work as an ice pack. Put a thin cloth between the ice or cold pack and your skin. The cloth protects the injured area from getting too cold. Use ice for 10 to 15 minutes at a time for the first 48 to 72 hours. Compression Use compression for sprains, strains, and surgeries of the arms and legs. Wrap the injured area with an elastic bandage or compression sleeve to reduce swelling. Don't wrap it too tightly. If the area below it feels numb, tingles, or feels cool, loosen the wrap. Elevation Use elevation for areas of the body that can be propped up, such as arms and legs. Prop up the injured area on pillows whenever you use ice. Keep it propped up anytime you sit or liedown. Try to keep the injured area at or above the level of your heart. This will help reduce swelling and bruising. Where can you learn more? Log into your personal health record on [email or web address] and enter I463 in the Education box to learn more about Learning About RICE (Rest, Ice, Compression, and Elevation). Current as of: May 03, 2019 Content Version: 12.7 [employer]. Care instructions adapted under license by your healthcare professional. If you have questions about a medical condition or this instruction, always ask your healthcare professional. [employer] disclaims any warranty or liability for your use of this information. Shoulder Pain: Care Instructions Your Care Instructions You can hurt your shoulder by using it too much during an activity, such as fishing or baseball. Itcan also happen as part of the everyday wear and tear of getting older. Shoulder injuries can be slow to heal, but your shoulder should get better with time. Your doctor may recommend a sling to rest your shoulder. If you have injured your shoulder, you mayneed testing and treatment. Follow-up care is a galeana part of your treatment and safety. Be sure to make and go to all appointments, and call your doctor if you are having problems. It's also a good idea to know your test resultsand keep a list of the medicines you take. How can you care for yourself at home? Take pain medicines exactly as directed. ? If the doctor gave you a prescription medicine for pain, take it as prescribed. ? If you are not taking a prescription pain medicine, ask your doctor if you can take an juww-hyu-crvlmez medicine. ? Do not take two or more pain medicines at the same time unless the doctor told you to. Many pain medicines contain acetaminophen, which is Tylenol. Too much acetaminophen (Tylenol) can be harmful. If your doctor recommends that you wear a sling, use it as directed. Do not take it off before yourdoctor tells you to. Put ice or a cold pack on the sore area for 10 to 20 minutes at a time. Put a thin cloth between the ice and your skin. If there is no swelling, you can put moist heat, a heating pad, or a warm cloth on your shoulder. Some doctors suggest alternating between hot and cold. Rest your shoulder for a few days. If your doctor recommends it, you can then begin gentle exerciseof the shoulder, but do not lift anything heavy. When should you call for help? Call 911 anytime you think you may need emergency care. For example, call if: You have chest pain or pressure. This may occur with: ? Sweating. ? Shortness of breath. ? Nausea or vomiting. ? Pain that spreads from the chest to the neck, jaw, or one or both shoulders or arms. ? Dizziness or lightheadedness. ? A fast or uneven pulse. After calling 911, chew 1 adult-strength aspirin. Wait for an ambulance. Do not try to drive yourself. Your arm or hand is cool or pale or changes color. Call your doctor now or seek immediate medical care if: You have signs of infection, such as: ? Increased pain, swelling, warmth, or redness in your shoulder. ? Red streaks leading from a place on your shoulder. ? Pus draining from an area of your shoulder. ? Swollen lymph nodes in your neck, armpits, or groin. ? A fever. Watch closely for changes in your health, and be sure to contact your doctor if: You cannot use your shoulder. Your shoulder does not get better as expected. Where can you learn more? Log into your personal health record on [email or web address] and enter H996 in the Education box to learn more about Shoulder Pain: Care Instructions. Current as of: May 03, 2019 Content Version: 12.7 [employer]. Care instructions adapted under license by your healthcare professional. If you have questions about a medical condition or this instruction, always ask your healthcare professional. [employer] disclaims any warranty or liability for your use of this information. Learning About RICE (Rest, Ice, Compression, and Elevation) What is RICE? RICE is a way to care for an injury. RICE helps relieve pain and swelling. It may also help with healing and flexibility. RICE stands for: R est and protect the injured or sore area. I ce or a cold pack used as soon as possible. C ompression, or wrapping the injured or sore area with an elastic bandage. E levation (propping up) the injured or sore area. How do you do RICE? You can use RICE for home treatment when you have general aches and pains or after an injury or surgery. Rest Do not put weight on the injury for at least 24 to 48 hours. Use crutches for a badly sprained knee or ankle. Support a sprained wrist, elbow, or shoulder with a sling. Ice Put ice or a cold pack on the injury right away to reduce pain and swelling. Frozen vegetables willalso work as an ice pack. Put a thin cloth between the ice or cold pack and your skin. The cloth protects the injured area from getting too cold. Use ice for 10 to 15 minutes at a time for the first 48 to 72 hours. Compression Use compression for sprains, strains, and surgeries of the arms and legs. Wrap the injured area with an elastic bandage or compression sleeve to reduce swelling. Don't wrap it too tightly. If the area below it feels numb, tingles, or feels cool, loosen the wrap. Elevation Use elevation for areas of the body that can be propped up, such as arms and legs. Prop up the injured area on pillows whenever you use ice. Keep it propped up anytime you sit or liedown. Try to keep the injured area at or above the level of your heart. This will help reduce swelling and bruising. Where can you learn more? Log into your personal health record on [email or web address] and enter I463 in the Education box to learn more about Learning About RICE (Rest, Ice, Compression, and Elevation). Current as of: May 03, 2019 Content Version: 12.7 [employer]. Care instructions adapted under license by your healthcare professional. If you have questions about a medical condition or this instruction, always ask your healthcare professional. [employer] disclaims any warranty or liability for your use of this information. Shoulder Pain: Care Instructions Your Care Instructions You can hurt your shoulder by using it too much during an activity, such as fishing or baseball. Itcan also happen as part of the everyday wear and tear of getting older. Shoulder injuries can be slow to heal, but your shoulder should get better with time. Your doctor may recommend a sling to rest your shoulder. If you have injured your shoulder, you mayneed testing and treatment. Follow-up care is a galeana part of your treatment and safety. Be sure to make and go to all appointments, and call your doctor if you are having problems. It's also a good idea to know your test resultsand keep a list of the medicines you take. How can you care for yourself at home? Take pain medicines exactly as directed. ? If the doctor gave you a prescription medicine for pain, take it as prescribed. ? If you are not taking a prescription pain medicine, ask your doctor if you can take an lzyc-lvj-xybddue medicine. ? Do not take two or more pain medicines at the same time unless the doctor told you to. Many pain medicines contain acetaminophen, which is Tylenol. Too much acetaminophen (Tylenol) can be harmful. If your doctor recommends that you wear a sling, use it as directed. Do not take it off before yourdoctor tells you to. Put ice or a cold pack on the sore area for 10 to 20 minutes at a time. Put a thin cloth between the ice and your skin. If there is no swelling, you can put moist heat, a heating pad, or a warm cloth on your shoulder. Some doctors suggest alternating between hot and cold. Rest your shoulder for a few days. If your doctor recommends it, you can then begin gentle exerciseof the shoulder, but do not lift anything heavy. When should you call for help? Call 911 anytime you think you may need emergency care. For example, call if: You have chest pain or pressure. This may occur with: ? Sweating. ? Shortness of breath. ? Nausea or vomiting. ? Pain that spreads from the chest to the neck, jaw, or one or both shoulders or arms. ? Dizziness or lightheadedness. ? A fast or uneven pulse. After calling 911, chew 1 adult-strength aspirin. Wait for an ambulance. Do not try to drive yourself. Your arm or hand is cool or pale or changes color. Call your doctor now or seek immediate medical care if: You have signs of infection, such as: ? Increased pain, swelling, warmth, or redness in your shoulder. ? Red streaks leading from a place on your shoulder. ? Pus draining from an area of your shoulder. ? Swollen lymph nodes in your neck, armpits, or groin. ? A fever. Watch closely for changes in your health, and be sure to contact your doctor if: You cannot use your shoulder. Your shoulder does not get better as expected. Where can you learn more? Log into your personal health record on [email or web address] and enter H996 in the Education box to learn more about Shoulder Pain: Care Instructions. Current as of: May 03, 2019 Content Version: 12.7 [employer]. Care instructions adapted under license by your healthcare professional. If you have questions about a medical condition or this instruction, always ask your healthcare professional. [employer] disclaims any warranty or liability for your use of this information. documented in this encounter* Maria D Rome CNP - 04/24/2020 6:56 PM EST Patient Name: [facility] Location: [facility] [address] [place] [address] Date Of : Date Of Visit: 1965 04/24/2020 MRN# Provider: [id number] Maria D Rome CNP Chief Complaint Patient presents with Fall Fell on L shoulder about 2 days ago. Limited range of motion. Assessment & Plan 1. Acute pain of left shoulder XR Shoulder Left 2+ Views (Standard) Ambulatory referral to Orthopedic Surgery HYDROcodone-acetaminophen (NORCO) 5-325 mg per tablet 2. Fall, initial encounter HYDROcodone-acetaminophen (NORCO) 5-325 mg per tablet No follow-ups on file. Medical Decision Making This is a 54 year old male patient that presents today c/o of having left shoulder pain after falling on ice 2 days ago. Denies hitting head or any LOC, states not having a headache, neck or back pain. Denies any n/v. Denies any n/t. Denies any weakness. Denies any cp or abdominal pain. States has had a rotator cuff repair on the right shoulder and this feels similar. States is right hand dominant. States pain is worse with movement. Pt having tenderness along the anterior shoulder, sensation intact. Strength is 5/5 in upper ext. Radial pulses noted. Able to abduct left arm 90 degress no higher. Denies any elbow or wrist pain. States has been icing shoulder -continue using RICE -pt denied any need for a sling -discussed will be given a prescription for norco.aware no driving or operating any heavy machinerywhile taking norco. -discussed following up with PCP for further evaluation. -discussed returning if any changes, worsening symptoms, or any other concerns. Additional Clinical Comments Discussed over the counter medications for symptomatic management and side effects of medications. Recommended taking all medications with food and to stop medications if they develop any signs of anallergic reaction. Educated patient and/or guardian about signs and symptoms that would warrant further immediate evaluation. Recommended that they should return to urgent care, make an appointment with their family physician, or go to the emergency room if symptoms persist or get acutely worse. Recommended follow upwithin the next week with their PCP or to get established with a PCP soon in order to follow up appropriately. Influenza Immunization [facility] COVID-19 Mask Status: Does the patient have classic COVID-19 symptoms? No, the patient does not have COVID-19 symptoms, the patient WAS wearing a mask during the visit and I (the provider) WAS wearing a mask during the visit. Subjective 54 y.o. male presents with Fall (Fell on L shoulder about 2 days ago. Limited range of motion. ) Fall The accident occurred 2 days ago. The fall occurred while standing. Impact surface: onto the ice. The point of impact was the left shoulder. The pain is present in the left shoulder. The pain is mild. The symptoms are aggravated by extension and movement. Pertinent negatives include no abdominal pain, fever, headaches, hematuria, nausea, numbness or vomiting. Treatments tried: celebrex. The treatment provided mild relief. Shoulder Injury Pertinent negatives include no numbness. Review Of Systems Review of Systems Constitutional: Negative for appetite change, chills, fatigue and fever. HENT: Negative. Negative for sore throat and trouble swallowing. Eyes: Negative for photophobia and visual disturbance. Respiratory: Negative for cough, chest tightness and shortness of breath. Gastrointestinal: Negative for abdominal pain, blood in stool, constipation, diarrhea, nausea and vomiting. Endocrine: Negative. Genitourinary: Negative for flank pain, frequency, hematuria, testicular pain and urgency. Musculoskeletal: Negative for neck pain and neck stiffness. States having left shoulder pain s/p fall two days ago Skin: Negative for rash. Allergic/Immunologic: Negative for immunocompromised state. Neurological: Negative for dizziness, weakness, light-headedness, numbness and headaches. Psychiatric/Behavioral: Negative. All other systems reviewed and are negative. Medical History Past Medical History: Diagnosis Date Depression Diverticulitis Diverticulosis Diverticulitis multiple times Sleep apnea, obstructive Past Surgical History: Procedure Laterality Date APPENDECTOMY FOOT SURGERY Patient Active Problem List Diagnosis Acute diverticulitis Social History Social History Tobacco Use Smoking status: Never Smoker Smokeless tobacco: Never Used Substance Use Topics Alcohol use: Yes Alcohol/week: 0.0 standard drinks Comment: Occ/socially Drug use: Never Family History Family History Problem Relation Age of Onset Ulcers Mother Hypertension Mother COPD Brother Objective Physical Exam BP 111/75 (BP Location: Right arm, Patient Position: Sitting, BP Cuff Size: Adult) Pulse 84 Temp 97.4 F (36.3 C) (Tympanic) Resp 16 Ht 6' Wt 95.7 kg (211 lb) SpO2 97% BMI 28.62 kg/m Vision/Hearing Exam:No exam data present Physical Exam Vitals signs and nursing note reviewed. Constitutional: General: He is not in acute distress. Appearance: He is well-developed. He is not diaphoretic. HENT: Head: Normocephalic and atraumatic. Right Ear: Hearing, tympanic membrane, ear canal and external ear normal. Left Ear: Hearing, tympanic membrane, ear canal and external ear normal. Nose: Nose normal. Mouth/Throat: Pharynx: No oropharyngeal exudate. Eyes: General: Right eye: No discharge. Left eye: No discharge. Conjunctiva/sclera: Conjunctivae normal. Neck: Musculoskeletal: Normal range of motion and neck supple. Cardiovascular: Rate and Rhythm: Normal rate and regular rhythm. Heart sounds: Normal heart sounds. No murmur. No friction rub. No gallop. Pulmonary: Effort: Pulmonary effort is normal. No respiratory distress. Breath sounds: Normal breath sounds. No wheezing or rales. Abdominal: General: Bowel sounds are normal. There is no distension. Palpations: Abdomen is soft. Musculoskeletal: General: Tenderness and signs of injury present. No swelling or deformity. Comments: Decreased rom to left shoulder. Pt able to pronate and supinate without difficulty. Denies any n/t. Denies any weakness. Skin: General: Skin is warm. Findings: No rash. Neurological: Mental Status: He is alert and oriented to person, place, and time. Psychiatric: Behavior: Behavior normal. Thought Content: Thought content normal. Judgment: Judgment normal. Procedure Notes Procedures Results X-ray left shoulder Orders Placed This Visit Orders Placed This Encounter Procedures XR Shoulder Left 2+ Views (Standard) Ambulatory referral to Orthopedic Surgery Medication List At End Of Visit Current Outpatient Medications Medication Sig Dispense Refill celecoxib (CeleBREX) 200 MG capsule Take 200 mg by mouth daily . pramipexole (MIRAPEX) 0.75 MG tablet Take 0.75 mg by mouth nightly . venlafaxine (EFFEXOR-XR) 75 MG 24 hr capsule Take 75 mg by mouth daily . HYDROcodone-acetaminophen (NORCO) 5-325 mg per tablet Take 1 (one) tablet by mouth every 6 (six) hours as needed for pain . 10 tablet 0 No current facility-administered medications for this visit. Patient Instructions Learning About RICE (Rest, Ice, Compression, and Elevation) What is RICE? RICE is a way to care for an injury. RICE helps relieve pain and swelling. It may also help with healing and flexibility. RICE stands for: R est and protect the injured or sore area. I ce or a cold pack used as soon as possible. C ompression, or wrapping the injured or sore area with an elastic bandage. E levation (propping up) the injured or sore area. How do you do RICE? You can use RICE for home treatment when you have general aches and pains or after an injury or surgery. Rest Do not put weight on the injury for at least 24 to 48 hours. Use crutches for a badly sprained knee or ankle. Support a sprained wrist, elbow, or shoulder with a sling. Ice Put ice or a cold pack on the injury right away to reduce pain and swelling. Frozen vegetables willalso work as an ice pack. Put a thin cloth between the ice or cold pack and your skin. The cloth protects the injured area from getting too cold. Use ice for 10 to 15 minutes at a time for the first 48 to 72 hours. Compression Use compression for sprains, strains, and surgeries of the arms and legs. Wrap the injured area with an elastic bandage or compression sleeve to reduce swelling. Don't wrap it too tightly. If the area below it feels numb, tingles, or feels cool, loosen the wrap. Elevation Use elevation for areas of the body that can be propped up, such as arms and legs. Prop up the injured area on pillows whenever you use ice. Keep it propped up anytime you sit or liedown. Try to keep the injured area at or above the level of your heart. This will help reduce swelling and bruising. Where can you learn more? Log into your personal health record on [email or web address]://[employer] and enter I463 in the Education box to learn more about Learning About RICE (Rest, Ice, Compression, and Elevation). Current as of: May 03, 2019 Content Version: 12.7 [employer]. Care instructions adapted under license by your healthcare professional. If you have questions about a medical condition or this instruction, always ask your healthcare professional. [employer] disclaims any warranty or liability for your use of this information. Shoulder Pain: Care Instructions Your Care Instructions You can hurt your shoulder by using it too much during an activity, such as fishing or baseball. Itcan also happen as part of the everyday wear and tear of getting older. Shoulder injuries can be slow to heal, but your shoulder should get better with time. Your doctor may recommend a sling to rest your shoulder. If you have injured your shoulder, you mayneed testing and treatment. Follow-up care is a galeana part of your treatment and safety. Be sure to make and go to all appointments, and call your doctor if you are having problems. It's also a good idea to know your test resultsand keep a list of the medicines you take. How can you care for yourself at home? Take pain medicines exactly as directed. ? If the doctor gave you a prescription medicine for pain, take it as prescribed. ? If you are not taking a prescription pain medicine, ask your doctor if you can take an jtoc-mfh-wgtnkaa medicine. ? Do not take two or more pain medicines at the same time unless the doctor told you to. Many pain medicines contain acetaminophen, which is Tylenol. Too much acetaminophen (Tylenol) can be harmful. If your doctor recommends that you wear a sling, use it as directed. Do not take it off before yourdoctor tells you to. Put ice or a cold pack on the sore area for 10 to 20 minutes at a time. Put a thin cloth between the ice and your skin. If there is no swelling, you can put moist heat, a heating pad, or a warm cloth on your shoulder. Some doctors suggest alternating between hot and cold. Rest your shoulder for a few days. If your doctor recommends it, you can then begin gentle exerciseof the shoulder, but do not lift anything heavy. When should you call for help? Call 911 anytime you think you may need emergency care. For example, call if: You have chest pain or pressure. This may occur with: ? Sweating. ? Shortness of breath. ? Nausea or vomiting. ? Pain that spreads from the chest to the neck, jaw, or one or both shoulders or arms. ? Dizziness or lightheadedness. ? A fast or uneven pulse. After calling 911, chew 1 adult-strength aspirin. Wait for an ambulance. Do not try to drive yourself. Your arm or hand is cool or pale or changes color. Call your doctor now or seek immediate medical care if: You have signs of infection, such as: ? Increased pain, swelling, warmth, or redness in your shoulder. ? Red streaks leading from a place on your shoulder. ? Pus draining from an area of your shoulder. ? Swollen lymph nodes in your neck, armpits, or groin. ? A fever. Watch closely for changes in your health, and be sure to contact your doctor if: You cannot use your shoulder. Your shoulder does not get better as expected. Where can you learn more? Log into your personal health record on [email or web address] and enter H996 in the Education box to learn more about Shoulder Pain: Care Instructions. Current as of: May 03, 2019 Content Version: 12.7 [employer]. Care instructions adapted under license by your healthcare professional. If you have questions about a medical condition or this instruction, always ask your healthcare professional. [employer] disclaims any warranty or liability for your use of this information. Learning About RICE (Rest, Ice, Compression, and Elevation) What is RICE? RICE is a way to care for an injury. RICE helps relieve pain and swelling. It may also help with healing and flexibility. RICE stands for: R est and protect the injured or sore area. I ce or a cold pack used as soon as possible. C ompression, or wrapping the injured or sore area with an elastic bandage. E levation (propping up) the injured or sore area. How do you do RICE? You can use RICE for home treatment when you have general aches and pains or after an injury or surgery. Rest Do not put weight on the injury for at least 24 to 48 hours. Use crutches for a badly sprained knee or ankle. Support a sprained wrist, elbow, or shoulder with a sling. Ice Put ice or a cold pack on the injury right away to reduce pain and swelling. Frozen vegetables willalso work as an ice pack. Put a thin cloth between the ice or cold pack and your skin. The cloth protects the injured area from getting too cold. Use ice for 10 to 15 minutes at a time for the first 48 to 72 hours. Compression Use compression for sprains, strains, and surgeries of the arms and legs. Wrap the injured area with an elastic bandage or compression sleeve to reduce swelling. Don't wrap it too tightly. If the area below it feels numb, tingles, or feels cool, loosen the wrap. Elevation Use elevation for areas of the body that can be propped up, such as arms and legs. Prop up the injured area on pillows whenever you use ice. Keep it propped up anytime you sit or liedown. Try to keep the injured area at or above the level of your heart. This will help reduce swelling and bruising. Where can you learn more? Log into your personal health record on https://[employer] and enter I463 in the Education box to learn more about Learning About RICE (Rest, Ice, Compression, and Elevation). Current as of: May 03, 2019 Content Version: 12.7 [employer]. Care instructions adapted under license by your healthcare professional. If you have questions about a medical condition or this instruction, always ask your healthcare professional. [employer] disclaims any warranty or liability for your use of this information. Shoulder Pain: Care Instructions Your Care Instructions You can hurt your shoulder by using it too much during an activity, such as fishing or baseball. Itcan also happen as part of the everyday wear and tear of getting older. Shoulder injuries can be slow to heal, but your shoulder should get better with time. Your doctor may recommend a sling to rest your shoulder. If you have injured your shoulder, you mayneed testing and treatment. Follow-up care is a galeana part of your treatment and safety. Be sure to make and go to all appointments, and call your doctor if you are having problems. It's also a good idea to know your test resultsand keep a list of the medicines you take. How can you care for yourself at home? Take pain medicines exactly as directed. ? If the doctor gave you a prescription medicine for pain, take it as prescribed. ? If you are not taking a prescription pain medicine, ask your doctor if you can take an tlil-zwc-urlowym medicine. ? Do not take two or more pain medicines at the same time unless the doctor told you to. Many pain medicines contain acetaminophen, which is Tylenol. Too much acetaminophen (Tylenol) can be harmful. If your doctor recommends that you wear a sling, use it as directed. Do not take it off before yourdoctor tells you to. Put ice or a cold pack on the sore area for 10 to 20 minutes at a time. Put a thin cloth between the ice and your skin. If there is no swelling, you can put moist heat, a heating pad, or a warm cloth on your shoulder. Some doctors suggest alternating between hot and cold. Rest your shoulder for a few days. If your doctor recommends it, you can then begin gentle exerciseof the shoulder, but do not lift anything heavy. When should you call for help? Call 911 anytime you think you may need emergency care. For example, call if: You have chest pain or pressure. This may occur with: ? Sweating. ? Shortness of breath. ? Nausea or vomiting. ? Pain that spreads from the chest to the neck, jaw, or one or both shoulders or arms. ? Dizziness or lightheadedness. ? A fast or uneven pulse. After calling 911, chew 1 adult-strength aspirin. Wait for an ambulance. Do not try to drive yourself. Your arm or hand is cool or pale or changes color. Call your doctor now or seek immediate medical care if: You have signs of infection, such as: ? Increased pain, swelling, warmth, or redness in your shoulder. ? Red streaks leading from a place on your shoulder. ? Pus draining from an area of your shoulder. ? Swollen lymph nodes in your neck, armpits, or groin. ? A fever. Watch closely for changes in your health, and be sure to contact your doctor if: You cannot use your shoulder. Your shoulder does not get better as expected. Where can you learn more? Log into your personal health record on https://[employer] and enter H996 in the Education box to learn more about Shoulder Pain: Care Instructions. Current as of: May 03, 2019 Content Version: 12.7 [employer]. Care instructions adapted under license by your healthcare professional. If you have questions about a medical condition or this instruction, always ask your healthcare professional. [employer] disclaims any warranty or liability for your use of this information. documented in this encounter Assessments Diagnosis Left lower quadrant abdominal pain History of diverticulitis Diagnosis Acute diverticulitis Diagnosis Acute pain of left shoulder- Primary Fall, initial encounter Diagnosis Acute pain of left shoulder Advance Directives No Advanced Directives Records FoundDocuments on File Type Date Recorded Patient Financial Counselor Expl anation Advance Directives and Livin g Will 08/30/2019 7:12 PM Documents on File Type Date Recorded Patient Financial Counselor Expl anation Advance Directives and Livin g Will 08/30/2019 7:12 PM Documents on File Type Date Recorded Patient Financial Counselor Expl anation Advance Directives and Livin g Will 01/31/2021 7:12 PM Documents on File Type Date Recorded Patient Financial Counselor Expl anation Power of Glost Tile Sorter Documents on File Type Date Recorded Patient Financial Counselor Expl anation Power of Glost Tile Sorter Hospital Course * Jony Patricio MD - 09/03/2019 8:17 AM EDT [facility] DISCHARGE SUMMARY Jos Alex Admitted: 08/30/2019 Discharge Date: 09/03/19 PCP Handoff Recommended Outpatient Testing: None Results Pending At Discharge: None Clinical Summary Jos Alex is a 54 y.o. male patient of Erma Knight MD with history of Depression and Diverticulitis presented with left lower quadrant abdominal pain and found to have diverticulitis. Recurrent acute sigmoid diverticulitis This will be 4 or 5th recurrence Colonoscopy 10 years ago normal per him He was slow to recover but pain and nausea improved at discharge and tolerating oral intake. Will continue Cipro and Flagyl at home for total 10 day course. PRN Percocet and Zofran provided for home. Discussed staying hydrated at home and slowly advancing his diet. Discussed with him that he should discuss referral to a surgeon with his PCP given his multiple recurrences. He has an appointment with his PCP, Dr. Knight, 09/06/19 Low Blood Pressure, resloved Due to his infection and resolved by DC Depression Stable mood Taking Effexor at home Discharge Medications Current Discharge Medication List START taking these medications Details ciprofloxacin HCl (CIPRO) 500 MG tablet Take 1 (one) tablet (500 mg total) by mouth 2 (two) times aday for 6 days . Qty: 12 tablet, Refills: 0 metroNIDAZOLE (FLAGYL) 500 MG tablet Take 1 (one) tablet (500 mg total) by mouth 3 (three) times a day with meals for 6 days . Qty: 18 tablet, Refills: 0 ondansetron (Zofran ODT) 4 MG disintegrating tablet Dissolve 1 (one) tablet (4 mg total) on top of tongue every 8 (eight) hours as needed for nausea . Qty: 20 tablet, Refills: 0 oxyCODONE-acetaminophen (PERCOCET) 5-325 mg per tablet Take 1 (one) tablet by mouth every 6 (six) hours as needed for pain (Days supply per fill: 3) . Qty: 12 tablet, Refills: 0 Associated Diagnoses: Acute diverticulitis CONTINUE these medications which have NOT CHANGED Details celecoxib (CeleBREX) 200 MG capsule Take 200 mg by mouth daily . pramipexole (MIRAPEX) 0.75 MG tablet Take 0.75 mg by mouth nightly . venlafaxine (EFFEXOR-XR) 75 MG 24 hr capsule Take 75 mg by mouth daily . Physician(s) Follow Up: Erma Knight MD [address] [facility] [id number] Follow up in 3 day(s) Short Stay Care at [facility] [address] [facility] 2nd Floor [facility] [id number] Call Call if you have questions about your stay. Condition at Discharge: Stable Disposition: Home On day of discharge, I performed a final bedside evaluation including a physical exam. I reviewed discharge recommendations with the patient in person. Patient instructions, including activity, were given to the patient/family at discharge. Time spent on discharge: > 30 minutes Completed by: Jony Patricio on 09/03/19, 8:17 AM documented in this encounter Reason for Referral Status Reason Specialty Diagnoses / Procedures Referred By Contact Referred To Contact Authorized Orthopedic Surgery Diagnoses Acute pain of left shoulder Johnny, Maria D Cardenas, EINSTEIN BROS BAGELS ASSISTANT MANAGER [address] [facility] [address] [facility] [place] [address] [facility] [address] [place] [address] Specialty Diagnoses / Procedures Referred By Contac t Referred To Contact Cardiology Diagnoses Pulmonary HTN (HCC) Procedures Echocardiogram complete Oliver Watson DO [address] [place] [address] Referral ID Status Reason Start Date Expiration Date V isits Requested Visits Authorized [id number] Authorized 01/30/2021 01/30/2022 1 1 Specialty Diagnoses / Procedures Referred By Contac t Referred To Contact Cardiology Diagnoses Mitral valve insufficiency, unspecified etiology Procedures Echocardiogram complete Oliver Watson DO [address] [facility] [address] [place] [phone] Referral ID Status Reason Start Date Expiration Date V isits Requested Visits Authorized [id number] New Request 01/31/2023 01/31/2024 1 1 Specialty Diagnoses / Procedures Referred By Contac t Referred To Contact Cardiology Diagnoses Palpitations Procedures MCT- Mobile Cardiac Telemetry Oliver Watson, DO [address] [facility] [address] [place] [phone] Referral ID Status Reason Start Date Expiration Date V isits Requested Visits Authorized [id number] Authorized 03/25/2023 03/24/2024 1 1 Specialty Diagnoses / Procedures Referred By Contac t Referred To Contact Cardiology Diagnoses Mitral valve disease Procedures Echocardiogram complete Oliver Watson, DO [address] [facility] [address] [place] [phone] Referral ID Status Reason Start Date Expiration Date V isits Requested Visits Authorized [id number] New Request 12/03/2023 12/02/2024 1 1 Summary Purpose Family History No Family History Records FoundNo Family History Records FoundNo Family History Records FoundNo Family History Records FoundNo Family History Records FoundNo Family History Records FoundNo Family History Records FoundNo Family History Records FoundNo Family History Records FoundNo Family History Records Found Additional Source Comments Reason for Visit (unrecogniz ed section and content) Reason Comments Abdominal Pain LLQ, x 3 days, pain getting sharper Reason Comments Fall Fell on L shoulder a bout 2 days ago. Limited range of motion. Reason Comments Consult Reason Comments Sinus Problem Harini Sim V EINSTEIN BROS BAGELS ASSISTANT MANAGER - 08/30/2019 7:50 PM EDT H&P Notes (unrecognized sect ion and content) [facility] Short Stay Unit History and Physical Patient Name: Jos Alex : 1965 MR #: [id number] Admit Date: Physicians: Erma Knight MD (Family); Amina Lange* (Referring) Jos Alex is a 54 y.o. male patient of Anindya Sanchez Sen, MD with history of Depression and Diverticulitis presented with left lower quadrant abdominal pain. Acute sigmoid diverticulitis Reports LLQ pain x2 days History of recurrent diverticulitis Last colonoscopy about 10 years ago He is afebrile with mild leukocytosis of [address] abd/pelvis with findings consistent with acute diverticulitis of the proximal sigmoid colon with extensive inflammatory changes and wall thickening. No evidence of abscess or free air Keep NPO Start IV Cipro and Flagyl Hydrate with IVF and monitor overnight Depression Stable mood Taking Effexor at home Able to be safely discharged from Short Stay Unit when feeling better. Chief Complaint My belly is hurting on my left side. History of Present Illness Jos Alex is a 54 y.o. male patient of Erma Knight MD with history of Depression and Diverticulitis presented with left lower quadrant abdominal pain. Patient reports having left lower quadrant abdominal pain since Friday morning. Describes his pain as constant aching sensation with occasional cramping. States his pain is about an 8/10 when the cramping comes on. His pain is not radiating. Patient tried to fast and not eat anything over the weekends trying to give his abdomen some rest which helped his pain a little but this morning he felt like his pain is getting bad again . He also had one episode of diarrhea this morning. Denies fevers, chills, nausea, vomiting, black/tarry stools, bloody diarrhea, anorexia, weakness, syncope, chest pain, shortness of breath, cough, headaches or other discomfort. Denies recent travel or ill contacts. Patient reports history of diverticulitis and believes that he might be having it right now again. His last colonoscopy was about 10 years ago. Denies tobacco or drug use but admits to occasional alcohol intake. Past Medical History Past Medical History: Diagnosis Date Depression Diverticulitis Past Surgical History History reviewed. No pertinent surgical history. Family History Family History Problem Relation Age of Onset Ulcers Mother Social History Social History Tobacco Use Smoking Status Never Smoker Smokeless Tobacco Never Used Social History Substance and Sexual Activity Alcohol Use Yes Comment: socially Social History Substance and Sexual Activity Drug Use Never Allergy Information I have reviewed the patient's allergies. Patient has no known allergies. Home Medications Home medications were reviewed. ROS Constitutional: Denies fever, chills, weight loss ENT: Denies hearing loss, nasal congestion, sore throat CV: Denies chest pain, palpitations, peripheral edema Respiratory: Denies shortness of breath, cough, wheezing GI: Reports having LLQ abdominal pain x2 days, denies nausea, vomiting, reports having one episode of diarrhea this morning, denies constipation : Denies dysuria, frequent urination MSK: Denies joint pain or swelling, restricted motion Integumentary: Denies skin changes, pruritis Neurological: Denies dizziness, headache, numbness or tingling Psychiatric: Denies depression, anxiety, sleep disturbance Endocrine: Denies heat or cold intolerance, excessive thirst Hematological: Denies abnormal bleeding or bruising Allergy/Immunological: Denies hives, swelling of lips or tongue Physical Examination There were no vitals taken for this visit. General Appearance: alert, well appearing, and in no acute distress. HEENT: Head- normocephalic; Eyes- EOMI; Ears- external auditory canals clear, hearing intact; Nose- no nasal discharge; Throat- oropharynx normal Cardiovascular: regular rate and rhythm; normal S1, S2; no murmurs, rubs, clicks or gallops; no peripheral edema. Respiratory: lungs clear to auscultation; without wheezes, rales or rhonchi. On room air. Abdomen: soft, tenderness in LLQ with guarding, non-distended; positive bowel sounds Neurological: alert, oriented x 3, normal speech; no focal findings or movement disorder noted Musculoskeletal: no significant deformity or tenderness to palpation Skin: normal coloration, texture and turgor; no lesions or eruptions Psych: normal mood and affect Laboratory and Additional Data Reviewed Laboratory 08/30/19 7:58 PM Radiology 08/30/19 7:58 PM Medications 08/30/19 7:58 PM Transcriptions 08/30/19 7:58 PM Associated attestation - Jony Patricio MD - 08/31/2019 8:21 AM EDT I personally saw and examined the patient independently. I reviewed the patient's chart and agree with history, exam, medical decision making and the assessment/plan except where indicated in my documentation below. Pain slightly better this morning No nausea or diarrhea Assessment/Plan Recurrent acute sigmoid diverticulitis This will be 4 or 5th recurrence Colonoscopy 10 years ago normal per him Will continue IV fluids Continue Cipro and Flagyl Pain control Trial of full liquids Suspect he'll need to spend at least another night at the [facility] Discussed with him that he should discuss referral to a surgeon with his PCP given his multiple recurrences. -Jony Patricio MD documented in this encounter Quick Note - Jerri Roque RN - 09/02/2019 11:26 PM EDTQutomasa Note - Jerri Roque RN - 09/02/2019 4:03 AM EDTQutomasa Note - Jerri Roque RN - 09/02/2019 12:52 AM EDT Miscellaneous Notes (unrecog nized section and content) Pt denied any pain nor discomfort, and refused any pain medication. The patient denied that he is in pain when asked by the RN and refused any pain med. This RN asked pt if he's in pain, denied any pain and refused pain med. Will continue to monitor. documented in this encounter Addended by: MARIA D ROME on: 04/24/2020 08:33 PM Modules accepted: Orders documented in this encounter Addended by: MARIA D ROME on: 04/24/2020 08:33 PM Modules accepted: Orders documented in this encounter Care Teams (unrecognized sec tion and content) Recruiter Account Manager Relationship Specialty Start Date End Date Erma Knight MD PCP - General 02/29/12 Recruiter Account Manager Relationship Specialty Start Date End Date Erma Knight MD PCP - General 02/29/12 01/30/21 Erma Knight MD [address] [place] [address] PCP - General Internal Medicine 01/31/21 Recruiter Account Manager Relationship Specialty Start Date End Date Erma Knight MD [address] [place] [address] PCP - General Internal Medicine 02/06/21 Recruiter Account Manager Relationship Specialty Start Date End Date Erma Knight MD [address] [place] [id number] PCP - General Internal Medicine 02/06/21 Recruiter Account Manager Relationship Specialty Start Date End Date Erma Knight MD [address] [place] [address] PCP - General Internal Medicine 01/31/21 Recruiter Account Manager Relationship Specialty Start Date End Date Erma Knight MD [address] [place] [address] PCP - General Internal Medicine 01/31/21 Recruiter Account Manager Relationship Specialty Start Date End Date Erma Knight MD [address] [place] [address] PCP - General Internal Medicine 01/31/21 Recruiter Account Manager Relationship Specialty Start Date End Date Erma Knight MD [address] [facility] [address] [place] [address] PCP - General Internal Medicine 01/31/21 Recruiter Account Manager Relationship Specialty Start Date End Date Erma Knight MD [address] [place] [address] PCP - General Internal Medicine 01/31/21 (unrecognized sect ion and content) No Status Records FoundNo Status Records FoundNo Status Records FoundNo Status Records FoundNo Status Records FoundNo Status Records FoundNo Status Records FoundNo Status Records FoundNo Status Records FoundNo Status Records Found INFORMATION SOURCE (unrecogn ized section and content) DATE CREATED AUTHOR 02/02/2021 [facility] DATE CREATED AUTHOR AUTHOR'S ORGANIZ ATION 02/07/2021 [facility] DATE CREATED AUTHOR AUTHOR'S ORGANIZ ATION 02/09/[address] [facility] DATE CREATED AUTHOR AUTHOR'S ORGANIZ ATION 02/09/2021 [facility] DATE CREATED AUTHOR AUTHOR'S ORGANIZ ATION 03/14/2022 [facility] DATE CREATED AUTHOR AUTHOR'S ORGANIZ ATION 03/27/2023 [facility] DATE CREATED AUTHOR AUTHOR'S ORGANIZ ATION 05/17/2023 [facility] DATE CREATED AUTHOR AUTHOR'S ORGANIZ ATION 04/26/2024 [facility] DATE CREATED AUTHOR AUTHOR'S ORGANIZ ATION 04/30/2024 [facility] DATE CREATED AUTHOR AUTHOR'S ORGANIZ ATION 07/10/2024 [facility] Scheduled Active and Recently Administ ered Medications (unrecognized section and content) Medication Order 02/06/2021 02/07/2021 02/08/2021 ceFAZolin (ANCEF) 2 gram/20 mL IV syringe 2 g (COMPLETED) 2 g, intravenous, Administer over 3 Minutes, Once, On Aminata 02/08/21 at 0615, For 1 dose, Preprocedure, Indication: Prophylaxis-Surgical 0732 (Given - Provid er: VINICIO Watkins) lidocaine PF (XYLOCAINE) 1 % injection 0.2 mL 0.2 mL, intradermal, Once, On Aminata 02/08/21 at 0615, For 1 dose, Preprocedure 0615 (Canceled Entry - Provider: Automatic Discharge Provider - Comment: Automatically canceled at discontinue of medication order) Continuous Medication Order 02/06/2021 02/07/2021 02/08/2021 lactated Ringer's infusion 50 mL/hr, intravenous, at 50 mL/hr, Continuous, Starting on Aminata 02/08/21 at 0615, Preprocedure 0606 (New Bag - Prov ider: Mariana Estrella RN)0705 (Continued by Anesthesia - Provider: VINICIO Watkins)0707 (Paused - Provider: VINICIO Watkins - Comment: Switch to gravity)0708 (Restarted - Provider: VINICIO Watkins)0739 (New Bag - Provider: VINICIO Watkins)0842 (New Bag - Provider: VINICIO Watkins)0958 (Anesthesia Volume Adjustment - Provider: VINICIO Watkins) PRN Medication Order 02/06/2021 02/07/2021 02/08/2021 EPINEPHrine (ADRENALIN) injection (CANCELED) As needed, Starting on Aminata 02/08/21 at 0959, Intraprocedure 0959 (Given - Provid er: Marty Gipson MD - Comment: mixed 3ml per 3000ml bag of LR for irrigation) lactated ringers irrigation solution (CANCELED) As needed, Starting on Aminata 02/08/21 at 1000, Intraprocedure 1000 (Given - Provid er: Marty Gipson MD) Source Comments (unrecognize d section and content) In the event this informatio n is protected by the Federal Confidentiality of Alcohol and Drug Abuse Patient Records regulations: The Federal rules restrict any use of the information to criminally investigate or prosecute any alcohol or drug abuse patient.[facility] Hospital[facility] the event this information is protected by the Federal Confidentiality of Alcohol and Drug Abuse Patient Records regulations: The Federal rules restrict any use of the information to criminally investigate or prosecute any alcohol or drug abuse patient.[facility] Hospital[facility] the event this information is protected by the Federal Confidentiality of Alcohol and Drug Abuse Patient Records regulations: The Federal rules restrict any use of the information to criminally investigate or prosecute any alcohol or drug abuse patient.[facility] FOR RECORDS PERTAINING TO PATIENTS WHO ARE OR HAVE BEEN ENROLLED IN A CHEMICAL DEPENDENCY/SUBSTANCEABUSE PROGRAM, SOME INFORMATION MAY BE OMITTED. This clinical summary was aggregated from multiple sources. Caution should be exercised in using it in the provision of clinical care. This summary normalizes information from multiple sources, and as a consequence, information in this document may materially change the coding, format and clinical context of patient data. In addition, data may be omitted in some cases. CLINICAL DECISIONS SHOULD BE BASED ON THE PRIMARY CLINICAL RECORDS. [facility] [employer] [facility]. provides no warranty or guarantee of the accuracy or completeness of information in this document.
== END | disposition home or self-care (01) ==
PROVIDERS: Referring Provider Internal Medicine Cardiovascular Disease; Visit Provider Internal Medicine Cardiovascular Disease
DX: R00.2 Palpitations (principal)
CPT/HCPCS: 93017; 93350

== ENCOUNTER → 2024-10-18 | Outpatient (CLI) | payer OTHER, SELFPAY ==
--- NOTE | 2024-10-18 12:43 | CT_ITS ---
PROCEDURE: LIMITED CHEST CT CARDIAC ONLY 10/18/2024 REASON FOR EXAM: RECURRING CHEST PAIN Family history of chest disease. TECHNIQUE: LIMITED CHEST CT CARDIAC ONLY CONTRAST: Isovue 3 7 VOLUME: 75 mL One or more dose reduction techniques were used (e.g., Automated exposure control, adjustment of the mA and/or kV according to patient size, use of iterative reconstruction technique). RADIATION DOSE SUMMARY: CTDlvol: 33.66 mGy DLP: 1277.91 mGycm COMPARISON: None FINDINGS: The heart is not enlarged. Coronary artery calcification. The aortic arch is unremarkable. CT/Limited Chest CT Cardiac Only IMPRESSION: Coronary artery calcific Reading Location: [facility]
[2024-10-18 12:53] VITALS: BP 120/73; PULSE 55; RESP 16; O2SAT 97; BMI 27.8
[2024-10-18 13:05] VITALS: PULSE 56
[2024-10-18] MEDS: Nitroglycerin SL (ED/IMG/CATH) 0.4 MG TABLET SL (13:05)
[2024-10-18 13:12] VITALS: BP 118/75; PULSE 63; RESP 16; O2SAT 95
--- NOTE | 2024-10-19 07:43 | CCTA.WCONT ---
CCTA w/Cont Coronary Arteries Date of Study:: 10/18/24 Chest pain Coronary Calcium Scoring: High-resolution Computed Tomographic imaging of the chest was performed on [10/18/24 ], with particular attention paid to the coronary arteries. Intravenous contrast agent was administered per protocol and images reconstructed and displayed. LEFT MAIN CORONARY ARTERY: Arises from the left coronary cusp [] LEFT ANTERIOR DESCENDING CORONARY ARTERY: This vessel is a medium size vessel. There is calcification noted in the midsegment a diagonal vessel is noted with moderate diffuse disease. [] LEFT CIRCUMFLEX CORONARY ARTERY: Left circumflex artery is a nondominant vessel. There appears to be some misregistration or movement artifact in the midsegment and coronary obstruction and a soft plaque cannot be completely excluded. Scattered focal calcification is present. [] RIGHT CORONARY ARTERY: Dominant vessel from the right coronary artery with moderate coronary calcification and no high-grade obstruction present. [] THORACIC AORTA: [] PULMONARY ARTERY: [] LEFT ATRIUM/APPENDAGE: [] MITRAL VALVE: [] AORTIC VALVE: [] LEFT VENTRICLE: [] CORONARY CALCIUM SCORE: [] Calcium Scoring Interpretation: Different methods to categorize the overall amount of coronary plaque. Overall amount CAC SIS Visual of coronary plaque P1 Mild -100 <2 1-2 vessels with mild amount of plaque P2 Moderate 101-300 3-4 1-2 vessels with moderate amount, 3 vessels with mild amount of plaque P3 Severe 301-999 5-7 3 vessels with moderate amount, 1 vessel with severe amount of plaque P4 Extensive >1000 >8 2-3 vessels with severe amount of plaque Conclusion: CT angiogram with mild focal coronary calcification with the LAD having a moderate amount of calcification in the midsegment.
== END | disposition home or self-care (01) ==
LOC: CT 12:34
PROVIDERS: Referring Provider Internal Medicine Cardiovascular Disease; Visit Provider Internal Medicine Cardiovascular Disease
DX: R07.9 Chest pain, unspecified (principal)
CPT/HCPCS: 75574; 76380; Q9967